=== PATIENT | male | born 1985 | race Caucasian/White ===

== ENCOUNTER 2017-09-07 19:38 | Inpatient (IN) | payer BC, SELFPAY ==
[2017-09-07 19:40] VITALS: BP 148/95; PULSE 81; RESP 18; TEMP 37.2; O2SAT 97; BMI 42.8
--- NOTE | 2017-09-07 20:23 | CT_ITS ---
CT Abdomen And Pelvis Venogram W/ Contrast INDICATION: UPPER ABD PAIN COMPARISON: None TECHNIQUE: Axial CT imaging of the abdomen and pelvis with IV contrast. Coronal and sagittal reformatted images. Radiation dose optimization technique applied. 100 mL of Isovue-300 were given intravenously. FINDINGS: Visualized lung bases are clear. The heart size is normal. There is intra-and extrahepatic biliary ductal dilatation and the common bile duct measures up to 8.5 mm at the lizzie hepatis and 5 mm at the pancreatic head. An obstructing lesion is not identified with certainty. Pancreatic duct does not appear significantly prominent. The gallbladder is not significantly distended. The spleen is normal in size. They kidneys enhance contrast symmetrically bilaterally and are without evidence of hydronephrosis. Bowel loops are nondistended. Appendix is unremarkable. Urinary bladder is decompressed. There is no evidence of free air or free fluid. CT/Abdomen/Pelvis W IV Cont ONLY IMPRESSION: Mild intra-and extrahepatic biliary ductal dilatation without CT evidence of stone or obstructing lesion. Consider further evaluation with ultrasound and/or MRCP. Normal appendix. at 2143 Reported and signed by: Kim Schilling MD Electronically Signed: Kim Schilling MD at 21:41 EDT Tel , Service support ,
[2017-09-07] MEDS: 0.9% Normal Saline 1,000 ML 1000 ML IV (20:39)
[2017-09-07] MEDS: Ondansetron 4 MG/2 ML Vial IV (20:39)
[2017-09-07] MEDS: Morphine 4 MG/ML Syringe IV (20:40)
[2017-09-07 20:47] LABS: Absolute Lymphocyte Count 1.79 X10^3/ul (0.83-4.51); Absolute Neutrophil Count 7.2 X10^3/uL (2.0-7.7); Basophil# 0.02 X10^3/uL; Basophil% 0.2 % (0-1); Eosinophil# 0.22 X10^3/uL; Eosinophils% 2.1 % (0-5); Hematocrit 46.4 % (40-54); Hemoglobin 16.1 g/dl (13.0-16.5); Lymphocyte # 1.79 X10^3/ul (4.0); Lymphocyte % 17.2 % (19-41); Mean Corp Hgb Conc 34.7 g/gl (32-36); Mean Corpuscular Volume 83.5 fL (80-94); Mean Platelet Vol. 10.2 fl (6.2-12.0); Monocyte# 1.16 X10^3/uL; Monocyte% 11.2 % (0-10); Neutrophil # 7.17 X10^3/uL (2.7-7.7); POSITIVE COUNT NO; POSITIVE DIFFERENTIAL NO; POSITIVE MORPHOLOGY NO; Platelet Count 259 K/mm3 (150-450); RBC Distribution Width CV 13.1 % (11.6-14.6); RBC Distribution Width SD 39.3 fl (35.1-43.9); Red Blood Count 5.56 M/mm3 (4.6-6.2); White Blood Count 10.4 K/mm3 (4.4-11.0)
[2017-09-07 20:51] LABS: Red Blood Cells-Urine 0 SEEN /hpf (0-5); Squamous Epithelial Cells - UA 0 SEEN /hpf (0-5)
--- NOTE | 2017-09-07 20:51 | ED.DCSUM_ITS ---
- ER Visit Summary Date of Service: 09/07/17 Chief Complaint: Midepigastric abdominal pain History of Present Illness: The patient is a 32 M presents to the emergency department with midepigastric abdominal pain. Patient's been having the symptoms for the past 4 days. He states that it started Thursday. He states he had a severe, sharp stabbing pain in his midepigastric area. Went to his back. He was nauseated without vomiting. He has had some loose watery diarrhea for a few episodes. There has been no blood. He has had no vomiting blood. He did have fevers yesterday. He denies any chills or sweats. He has had no history of abdominal surgery in the past. He does not drink alcohol. Physical Examination: Vital signs reviewed General: Well-nourished, well-developed Head: Normocephalic, atraumatic Eyes: Pupils equal and reactive, extraocular muscles intact Neck, supple, no lymphadenopathy Heart: Regular rate and rhythm Respiratory: No distress, clear bilaterally Abdomen: Soft, mildly tender in the midepigastric area, nondistended, no peritoneal signs Back: Nontender Extremities: Nontender, no edema, no cords Skin: Normal color no rash Neuro: Alert and oriented, no focal or lateralizing deficits Test Results: [] Emergency Department Course and Treatment: The patient has midepigastric tenderness. He does have some scleral icterus. IV was established. He was given morphine and Zofran with resolution of his pain. He has no significant leukocytosis. His labs do show obstructive pattern of his LFTs. Patient underwent CT of the abdomen and pelvis which does show dilation of his intrahepatic and extrahepatic collection system. I did discuss the patient with Dr. Raymond as I do feel he may need ERCP. Plan will be for admission with pain control and repeat labs. He was seen and evaluated by surgery in the emergency department will be admitted. Treatment Plan: [] Disposition: [place] Impression: 1. Midepigastric abdominal pain 2. Choledocholithiasis This note was generated with [employer] dictation software. It may contain incorrect words, spelling, and punctuation that were not noted in review of the chart prior to signing ED Disposition - Plan for ED Patient: Chief Complaint: Abd Pain Referrals: NOT,DEFINED [NON-STAFF] -
[2017-09-07 20:54] LABS: Color, Urine Amber (Yellow); Glucose, Dipstick Normal (Normal); Ketone-Dipstick 50 mg/dl (Negative); Leukocyte Esterase-Dipstick 25 /ul (Negative); Nitrite-Dipstick Positive (Negative); Occult Blood-Urine 10 /ul (Negative); Protein-Dipstick 15 mg/dl (Negative); Urine Clarity Clear (Clear); Urine Urobilinogen 4 mg/dl (Normal)
[2017-09-07 21:00] LABS: AST(SGOT) 103 U/L (15-37); Alanine Aminotransfer ALT/SGPT 265 U/L (16-61); Albumin, Serum 3.8 g/dL (3.2-5.0); Alkaline Phosphatase 237 U/L (45-117); Anion Gap 9 (5-15); BUN 7 mg/dL (7-18); BUN/Creat Ratio 6.7 RATIO (10-20); Bilirubin, Direct 4.91 mg/dL (0.00-0.30); Calcium,Total 8.9 mg/dL (8.5-10.1); Chloride 104 mmol/L (98-107); Creatinine, Serum 1.04 mg/dL (0.70-1.30); EST Glomerular Filtration Rate 89 mL/min (>60); Est Glom Filt Rate - Afr Amer 107 mL/min (>60); Estimated Creatinine Clearance 80.21 ml/min; Glucose 76 mg/dL (74-106); Lipase 105 U/L (73-393); Potassium 3.5 mmol/L (3.5-5.1); Protein, Total 7.8 g/dL (6.4-8.2); Sodium Level 139 mmol/L (136-145)
[2017-09-07 21:11] LABS: Bacteria RARE /hpf (None Seen); Mucous, Urine RARE /hpf (<or=2+); Urine Bilirubin Dipstick 6 mg/dL (Negative); White Blood Cells 0-5 SEEN /hpf (0-5)
--- NOTE | 2017-09-07 22:05 | US_ITS ---
US Abdomen RUQ (limited) INDICATION: RUQ PAIN COMPARISON: CT from the same day TECHNIQUE: Ultrasonographic grayscale and limited Doppler investigation of the right upper quadrant FINDINGS: The liver measures 16 cm and demonstrates increased echogenicity. There is mild intrahepatic biliary ductal dilatation. The gallbladder measures 7.4 cm. Few small stones are seen in the dependent portion of the neck, measuring up to 1 cm. The ultrasonographic Randolph sign is negative. The gallbladder wall measures 4 mm. The common bile duct measures 8 mm. The pancreas is not seen due to overlying bowel gas. The right kidney measures 10 cm in length and is without evidence of hydronephrosis. US/Gallbladder IMPRESSION: Multiple small gallstones up to 1 cm, in the dependent portion and the neck of the gallbladder . (Radiolucent gallstones not seen on CT) Mild intra-and extrahepatic biliary ductal dilatation. Choledochal lithiasis cannot be excluded, consider further evaluation with MRCP or ERCP. No ultrasonographic evidence of acute cholecystitis. at 2335 Reported and signed by: Kim Schilling MD Electronically Signed: Kim Schilling MD at 23:33 EDT Tel , Service support ,
--- NOTE | 2017-09-07 22:21 | PCM.HP.STD ---
Problem List (1) Choledocholithiasis with obstruction Status: Acute Qualifiers: Cholecystitis presence: without cholecystitis Qualified Code(s): K80.51 - Calculus of bile duct without cholangitis or cholecystitis with obstruction History of Present Illness Date of Admission: 09/07/17 The patient is a 32 year old M reports that he began having epigastric pain a few days ago. He does not have any nausea or vomiting. He noticed he was getting jaundiced he came to the emergency room. He reports that about 3 years ago he had acute cholecystitis and had an ultrasound that showed gallstones. This was treated with antibiotics alone. he says the pain does not radiate anywhere he is having no fevers or chills. Past Medical History Allergies No Known Allergies Allergy (Verified 09/07/17 19:41) Home Medications: Ambulatory Orders Medication Instructions Recorded NK [NK] 09/07/17 Surgical History: herniorrhaphy - Umbilical hernia repair without mesh Smoking Status: Former smoker - *Family History Paternal History Items: - - Diverticulitis Review of Systems Constitutional: Denies: Anorexia, Chills, Fever, Night Sweats Eyes: Denies: Blurred vision HEENT: Denies: Difficulty Swallowing Cardiovascular: Denies: Chest Pain Respiratory: Denies: Cough, Shortness of Breath Gastrointestinal: Reports: Abdominal Pain - Epigastric, Diarrhea, Nausea. Denies: Vomiting Genitourinary: Denies: Dysuria Musculoskeletal: Denies: Joint Tenderness Skin: Reports: Jaundice. Denies: Dryness Neurological: Denies: Balance problems Psychiatric: Denies: Anxiety Hematologic/ Lymphatic: Denies: Adenopathy, Anemia VTE Information - Inpt Only VTE Present on Admission: No Patient Problems: Active and Suspected Problems Choledocholithiasis with obstruction (Acute) - Physical Exam General: Alert, Oriented x3, Cooperative, No apparent distress HEENT: Atraumatic, PERRLA, EOMI Oral: Moist Mucosa Neck: No JVD Lungs: Normal air movement Cardiovascular: Regular rate, Regular Rhythm Abdomen: Soft, Non-Distended, Tender - Epigastric tenderness with no guarding or rebound, - - Negative Randolph sign Extremities: No clubbing Skin: No rashes Musculoskeletal: No Tenderness to Palpation of Joints or Extremities, No Muscle Wasting Neurological: Cranial nerves II-XII grossly intact, Deep Tendon Reflexes 2+/4 and Symmetrical Psych/Mental Status: Normal Affect, Appropriate Vital Signs Temp Pulse Resp BP Pulse Ox 99.0 F 81 18 148/95 H 97 09/07/17 19:40 09/07/17 19:40 09/07/17 19:40 09/07/17 19:40 09/07/17 19:40 Oxygen Delivery Method Room Air Weight: 234 lb 2.095 oz Body Mass Index (BMI) 42.8 Laboratory Tests Past 24 Hrs 09/07/17 09/07/17 09/07/17 20:30 20:30 20:40 WBC 10.4 RBC 5.56 Hgb 16.1 Hct 46.4 MCV 83.5 MCH 29.0 MCHC 34.7 RDW 13.1 RDW Differential 39.3 Plt Count 259 MPV 10.2 Immature Gran % (Auto) 0.300 Neut % (Auto) 69.0 Lymph % (Auto) 17.2 L [place] % (Auto) 11.2 H Eos % (Auto) 2.1 Baso % (Auto) 0.2 Absolute Neuts (auto) 7.2 Absolute Lymphs (auto) 1.79 Total Counted Not Reportable Sodium 139 Potassium 3.5 Chloride 104 Carbon Dioxide 26.0 Anion Gap 9 BUN 7 Creatinine 1.04 Estim Creat Clear Calc 80.21 Est GFR (MDRD) Af Amer 107 Est GFR (MDRD) Non-Af 89 BUN/Creatinine Ratio 6.7 L Glucose 76 Calcium 8.9 Total Bilirubin 6.70 H Direct Bilirubin 4.91 H AST 103 H ALT 265 H Alkaline Phosphatase 237 H Total Protein 7.8 Albumin 3.8 Globulin 4.0 Lipase 105 Urine Color [place] Urine Clarity Clear Urine pH 5.0 Ur Specific [place] 1.020 Urine Protein 15 H Urine Glucose (UA) Normal Urine Ketones 50 H Urine Occult Blood 10 H Urine Nitrite Positive H Urine Bilirubin 6 H Urine Urobilinogen 4 H Ur Leukocyte Esterase 25 H Urine RBC 0 SEEN Urine WBC 0-5 SEEN Ur Squamous Epith Cells 0 SEEN Urine Bacteria RARE Urine Mucus RARE Clinical Impression(s) from Imaging Studies Abdomen/Pelvis CT 09/07/17 20:23 IMPRESSION: Mild intra-and extrahepatic biliary ductal dilatation without CT evidence of stone or obstructing lesion. Consider further evaluation with ultrasound and/or MRCP. Normal appendix. at 2143 Reported and signed by: Kim Schilling MD Electronically Signed: Kim Schilling MD at 21:41 EDT Tel , Service support , Assessment/Plan Active and Suspected Problems Choledocholithiasis with obstruction (Acute) 32-year-old male with obstructive jaundice and possible choledocholithiasis 1. The patient has a history of gallstones as well as acute cholecystitis. His CT shows dilated bile duct and his LFTs are elevated in an obstructive pattern. I am getting an ultrasound to rule out acute cholecystitis as his white count is borderline. 2. I will admit the patient and keep him n.p.o. on IV fluids and IV antibiotics. 3. I will recheck LFTs in the morning. If his LFTs have not gone down I will schedule him for ERCP tomorrow. If his LFTs have decreased I will taken for laparoscopic cholecystectomy with cholangiograms and check for intraductal stone. 4. I describe ERCP and laparoscopic cholecystectomy to the patient in detail. I described the risks of ERCP including but not limited to bleeding, infection, perforation of the bile duct or bowels, pancreatitis. I also explained the possibility of being unable to cannulate or placing a stent. I also explained the risks of laparoscopic cholecystectomy including but not limited to bleeding, infection, injury to surrounding organs such as the liver, bile duct, bowels. I also explained the possibility of having to convert to an open procedure. The patient understands all the risks and is willing to proceed with both procedures as needed. Sampson Raymond MD Pager: [facility] [address] [place] [address], [address] [place] [address] Office:
[2017-09-07 22:26] VITALS: BP 141/77; PULSE 72; RESP 16; TEMP 37.2; O2SAT 98
--- NOTE | 2017-09-07 22:27 | HP.PCM_ITS ---
Problem List (1) Choledocholithiasis with obstruction Status: Acute Qualifiers: Cholecystitis presence: without cholecystitis Qualified Code(s): K80.51 - Calculus of bile duct without cholangitis or cholecystitis with obstruction History of Present Illness Date of Admission: 09/07/17 The patient is a 32 year old M reports that he began having epigastric pain a few days ago. He does not have any nausea or vomiting. He noticed he was getting jaundiced he came to the emergency room. He reports that about 3 years ago he had acute cholecystitis and had an ultrasound that showed gallstones. This was treated with antibiotics alone. he says the pain does not radiate anywhere he is having no fevers or chills. Past Medical History Allergies No Known Allergies Allergy (Verified 09/07/17 19:41) Home Medications: Ambulatory Orders Medication Instructions Recorded NK [NK] 09/07/17 Surgical History: herniorrhaphy - Umbilical hernia repair without mesh Smoking Status: Former smoker - *Family History Paternal History Items: - - Diverticulitis Review of Systems Constitutional: Denies: Anorexia, Chills, Fever, Night Sweats Eyes: Denies: Blurred vision HEENT: Denies: Difficulty Swallowing Cardiovascular: Denies: Chest Pain Respiratory: Denies: Cough, Shortness of Breath Gastrointestinal: Reports: Abdominal Pain - Epigastric, Diarrhea, Nausea. Denies: Vomiting Genitourinary: Denies: Dysuria Musculoskeletal: Denies: Joint Tenderness Skin: Reports: Jaundice. Denies: Dryness Neurological: Denies: Balance problems Psychiatric: Denies: Anxiety Hematologic/ Lymphatic: Denies: Adenopathy, Anemia VTE Information - Inpt Only VTE Present on Admission: No Patient Problems: Active and Suspected Problems Choledocholithiasis with obstruction (Acute) - Physical Exam General: Alert, Oriented x3, Cooperative, No apparent distress HEENT: Atraumatic, PERRLA, EOMI Oral: Moist Mucosa Neck: No JVD Lungs: Normal air movement Cardiovascular: Regular rate, Regular Rhythm Abdomen: Soft, Non-Distended, Tender - Epigastric tenderness with no guarding or rebound, - - Negative Randolph sign Extremities: No clubbing Skin: No rashes Musculoskeletal: No Tenderness to Palpation of Joints or Extremities, No Muscle Wasting Neurological: Cranial nerves II-XII grossly intact, Deep Tendon Reflexes 2+/4 and Symmetrical Psych/Mental Status: Normal Affect, Appropriate Vital Signs Temp Pulse Resp BP Pulse Ox 99.0 F 81 18 148/95 H 97 09/07/17 19:40 09/07/17 19:40 09/07/17 19:40 09/07/17 19:40 09/07/17 19:40 Oxygen Delivery Method Room Air Weight: 234 lb 2.095 oz Body Mass Index (BMI) 42.8 Laboratory Tests Past 24 Hrs 09/07/17 09/07/17 09/07/17 20:30 20:30 20:40 WBC 10.4 RBC 5.56 Hgb 16.1 Hct 46.4 MCV 83.5 MCH 29.0 MCHC 34.7 RDW 13.1 RDW Differential 39.3 Plt Count 259 MPV 10.2 Immature Gran % (Auto) 0.300 Neut % (Auto) 69.0 Lymph % (Auto) 17.2 L [place] % (Auto) 11.2 H Eos % (Auto) 2.1 Baso % (Auto) 0.2 Absolute Neuts (auto) 7.2 Absolute Lymphs (auto) 1.79 Total Counted Not Reportable Sodium 139 Potassium 3.5 Chloride 104 Carbon Dioxide 26.0 Anion Gap 9 BUN 7 Creatinine 1.04 Estim Creat Clear Calc 80.21 Est GFR (MDRD) Af Amer 107 Est GFR (MDRD) Non-Af 89 BUN/Creatinine Ratio 6.7 L Glucose 76 Calcium 8.9 Total Bilirubin 6.70 H Direct Bilirubin 4.91 H AST 103 H ALT 265 H Alkaline Phosphatase 237 H Total Protein 7.8 Albumin 3.8 Globulin 4.0 Lipase 105 Urine Color [place] Urine Clarity Clear Urine pH 5.0 Ur Specific [place] 1.020 Urine Protein 15 H Urine Glucose (UA) Normal Urine Ketones 50 H Urine Occult Blood 10 H Urine Nitrite Positive H Urine Bilirubin 6 H Urine Urobilinogen 4 H Ur Leukocyte Esterase 25 H Urine RBC 0 SEEN Urine WBC 0-5 SEEN Ur Squamous Epith Cells 0 SEEN Urine Bacteria RARE Urine Mucus RARE Clinical Impression(s) from Imaging Studies Abdomen/Pelvis CT 09/07/17 20:23 IMPRESSION: Mild intra-and extrahepatic biliary ductal dilatation without CT evidence of stone or obstructing lesion. Consider further evaluation with ultrasound and/or MRCP. Normal appendix. at 2143 Reported and signed by: Kim Schilling MD Electronically Signed: Kim Schilling MD at 21:41 EDT Tel , Service support , Assessment/Plan Active and Suspected Problems Choledocholithiasis with obstruction (Acute) 32-year-old male with obstructive jaundice and possible choledocholithiasis 1. The patient has a history of gallstones as well as acute cholecystitis. His CT shows dilated bile duct and his LFTs are elevated in an obstructive pattern. I am getting an ultrasound to rule out acute cholecystitis as his white count is borderline. 2. I will admit the patient and keep him n.p.o. on IV fluids and IV antibiotics. 3. I will recheck LFTs in the morning. If his LFTs have not gone down I will schedule him for ERCP tomorrow. If his LFTs have decreased I will taken for laparoscopic cholecystectomy with cholangiograms and check for intraductal stone. 4. I describe ERCP and laparoscopic cholecystectomy to the patient in detail. I described the risks of ERCP including but not limited to bleeding, infection, perforation of the bile duct or bowels, pancreatitis. I also explained the possibility of being unable to cannulate or placing a stent. I also explained the risks of laparoscopic cholecystectomy including but not limited to bleeding , infection, injury to surrounding organs such as the liver, bile duct, bowels. I also explained the possibility of having to convert to an open procedure. The patient understands all the risks and is willing to proceed with both procedures as needed. Sampson Raymond MD Pager: [facility] [address] [place] [address], [address] [place] [address] Office:
[2017-09-07 23:00] VITALS: BP 141/77; PULSE 72; RESP 16; O2SAT 98
[2017-09-07 23:16] VITALS: BMI 44.2
[2017-09-07 23:24] VITALS: BMI 44.2
[2017-09-07 23:34] VITALS: BP 129/76; PULSE 77; RESP 16; TEMP 37.1; O2SAT 99
[2017-09-08] VITALS (7 sets, daily range): BP systolic 109–129; BP diastolic 63–87; PULSE 63–105; RESP 14–16; TEMP 36.5–37.2; O2SAT 92–98; BMI 44.2
[2017-09-08] MEDS: 0.9% NaCl Peripheral Flush Adult/Peds IV (00:21)
[2017-09-08] MEDS: 0.9% Normal Saline 1,000 ML 125 ML IV ×2 (00:21→11:34)
[2017-09-08] MEDS: Morphine 4 MG/ML Syringe IV (04:42)
[2017-09-08 05:52] LABS: Absolute Neutrophil Count 5.5 X10^3/uL (2.0-7.7); Basophil# 0.01 X10^3/uL; Basophil% 0.1 % (0-1); Eosinophil# 0.23 X10^3/uL; Eosinophils% 2.8 % (0-5); Hematocrit 43.7 % (40-54); Hemoglobin 14.6 g/dl (13.0-16.5); Lymphocyte % 20.5 % (19-41); Mean Corp Hgb Conc 33.4 g/gl (32-36); Mean Corpuscular Hgb 28.3 pg (27.0-32.0); Mean Corpuscular Volume 84.7 fL (80-94); Mean Platelet Vol. 10.1 fl (6.2-12.0); Monocyte# 0.84 X10^3/uL; Monocyte% 10.1 % (0-10); Neutrophil % 66.3 % (47-70); Platelet Count 252 K/mm3 (150-450); RBC Distribution Width CV 13.3 % (11.6-14.6); RBC Distribution Width SD 40.7 fl (35.1-43.9); Red Blood Count 5.16 M/mm3 (4.6-6.2); White Blood Count 8.3 K/mm3 (4.4-11.0)
[2017-09-08 05:54] LABS: POSITIVE COUNT NO; POSITIVE DIFFERENTIAL NO; POSITIVE MORPHOLOGY NO
[2017-09-08 06:08] LABS: ALB/GLOB Ratio 0.9 RATIO (0.9-2.4); AST(SGOT) 89 U/L (15-37); Alanine Aminotransfer ALT/SGPT 230 U/L (16-61); Albumin, Serum 3.3 g/dL (3.2-5.0); Alkaline Phosphatase 219 U/L (45-117); Anion Gap 10 (5-15); BUN 8 mg/dL (7-18); BUN/Creat Ratio 8.7 RATIO (10-20); Calcium,Total 8.5 mg/dL (8.5-10.1); Chloride 108 mmol/L (98-107); Creatinine, Serum 0.92 mg/dL (0.70-1.30); EST Glomerular Filtration Rate 103 mL/min (>60); Est Glom Filt Rate - Afr Amer 124 mL/min (>60); Estimated Creatinine Clearance 90.67 ml/min; Globulin 3.8 g/dL (2.2-4.2); Glucose 88 mg/dL (74-106); Potassium 3.7 mmol/L (3.5-5.1); Protein, Total 7.1 g/dL (6.4-8.2); Sodium Level 138 mmol/L (136-145)
--- NOTE | 2017-09-08 07:03 | PN.SURG_ITS ---
Patient Problems: Active and Suspected Problems Choledocholithiasis with obstruction (Acute) Subjective: No issues overnight. No nausea or vomiting. Pain remains the same. - Physical Exam General: Alert, Oriented x3, Cooperative HEENT: Atraumatic Neck: No JVD Lungs: Normal air movement Cardiovascular: Regular rate, Regular Rhythm Abdomen: Soft, Non-Distended, Tender - Epigastric tenderness no guarding or rebound Vital Signs Temp Pulse Resp BP Pulse Ox 98.3 F 68 16 128/84 H 98 09/08/17 04:37 09/08/17 04:37 09/08/17 04:37 09/08/17 04:37 09/08/17 04:37 Oxygen Delivery Method Room Air Weight: 241 lb 13.553 oz Body Mass Index (BMI) 44.2 Intake and Output for Last 24 Hours 09/06/17 09/07/17 09/08/17 23:59 23:59 23:59 Intake Total 684 / 684 Output Total 475 / 475 Balance 209 / 209 Laboratory Tests Past 24 Hrs 09/08/17 09/08/17 05:14 05:14 WBC 8.3 RBC 5.16 Hgb 14.6 Hct 43.7 MCV 84.7 MCH 28.3 MCHC 33.4 RDW 13.3 RDW Differential 40.7 Plt Count 252 MPV 10.1 Immature Gran % (Auto) 0.200 Neut % (Auto) 66.3 Lymph % (Auto) 20.5 [place] % (Auto) 10.1 H Eos % (Auto) 2.8 Baso % (Auto) 0.1 Absolute Neuts (auto) 5.5 Absolute Lymphs (auto) 1.70 Total Counted Not Reportable Sodium 138 Potassium 3.7 Chloride 108 H Carbon Dioxide 20.0 L Anion Gap 10 BUN 8 Creatinine 0.92 Estim Creat Clear Calc 90.67 Est GFR (MDRD) Af Amer 124 Est GFR (MDRD) Non-Af 103 BUN/Creatinine Ratio 8.7 L Glucose 88 Calcium 8.5 Total Bilirubin 6.60 H AST 89 H ALT 230 H Alkaline Phosphatase 219 H Total Protein 7.1 Albumin 3.3 Globulin 3.8 Albumin/Globulin Ratio 0.9 Medical Necessity - Tobacco Use Smoking Status: Former smoker Assessment/Plan Active and Suspected Problems Choledocholithiasis with obstruction (Acute) 32-year-old male with obstructive jaundice 1. Patient had an ultrasound which did show cholelithiasis as well as a gallbladder wall 4 mm. Plan for ERCP today as LFTs stayed elevated. All questions were answered sufficiently and patient consents to proceed with procedure. Sampson Raymond MD Pager: [facility] [address] [place] [address] [address] [place] [phone] Office:
--- NOTE | 2017-09-08 07:45 | RAD_ITS ---
STUDY: ERCP REASON FOR EXAM: Male, 32 years old. History of gallstones. FLUOROSCOPY TIME (if supplied): (26:36) minutes/seconds TECHNIQUE: An ERCP was performed by the surgeon. Imaging was submitted. COMPARISON: None. FINDINGS: There is opacification of the intrahepatic biliary ducts as well as the common bile duct. There is a small filling defect in the proximal portion of the common bile duct just distal to the insertion of the cystic duct. A biliary stent was then placed. RAD/ERCP Biliary Only IMPRESSION: Filling defect most likely representing a tiny calculus in the proximal portion common bile duct. A biliary stent was placed. Electronically Signed: Raphael Sellers MD at 12:49 EDT Tel [phone], Service support ,
--- NOTE | 2017-09-08 11:47 | OP.PCM_ITS ---
Problem List (1) Choledocholithiasis with obstruction Status: Acute Qualifiers: Cholecystitis presence: without cholecystitis Qualified Code(s): K80.51 - Calculus of bile duct without cholangitis or cholecystitis with obstruction Report of Operation Date of Procedure: 09/08/17 Pre-Operative Diagnosis: Obstructive jaundice Post-Operative Diagnosis: Choledocholithiasis and obstructive jaundice Surgery/Procedure Performed:: ERCP with sphincterotomy and placement of stent Description of Procedure: After describing the risks of the procedure as well as the procedure in detail informed consent was obtained. Patient was brought to the operating room and general anesthesia was induced. The patient was then placed in a semi-prone position. Next, the side-viewing endoscope was placed into the mouth and down into the stomach and advanced into the duodenum. The patient had several shallow ulcers of the duodenum. The ampulla was located. A sphinctertome was used to cannulate the common bile duct and location was confirmed on fluoroscopy. The guidewire was placed in the common bile duct and using sphincterotome and electrocautery a sphincterotomy was performed. Hemostasis was good. Next the sphincterotome was removed leaving the guidewire in the common bile duct. A balloon was then introduced over the guidewire and contrast was instilled. There was a very large stone in the mid common bile duct which was obstructing the contrast. This was at the level of the common bile duct and cystic duct juncture. I was able to get a guidewire passed the stone but nothing else would go past. I tried a balloon and a trapezoid basket but neither would get past the stone. It was very tight against the wire. I was able to get a 7 cm 7 Maltese stent into the common bile duct but this proved to be distal to the obstruction once it was deployed. This was removed with snare. Next a 9 cm 7 Maltese stent was placed and I was able to get this passed the stone and deployed. Once this was deployed there was green bile returning from the stent. The side-viewing scope was then withdrawn back into the stomach and the stomach was suctioned. Next, the scope was removed. The patient was taken to PACU in stable condition. The patient tolerated the procedure well. Grafts/Implants Used: 9 cm x 7 Maltese plastic biliary stent - Admit VTE Documentation VTE Mechan Device Prophylaxis: SCD's
[2017-09-08] MEDS: Pantoprazole Sodium 40 MG Tablet PO (17:41)
--- NOTE | 2017-09-08 22:43 | NUR.TO.PHY ---
Patient ate candy bar that family had brought in. It has been 1 hour since he ate candy bar, no nausea or pain. Diet increased to regular for breakfast. Education provided on diet teaching.
[2017-09-09] MEDS: 0.9% Normal Saline 1,000 ML 125 ML IV (02:06)
[2017-09-09 02:30] VITALS: BP 114/65; PULSE 73; RESP 16; TEMP 36.8; O2SAT 97
[2017-09-09 06:42] LABS: ALB/GLOB Ratio 0.8 RATIO (0.9-2.4); AST(SGOT) 55 U/L (15-37); Alanine Aminotransfer ALT/SGPT 176 U/L (16-61); Alkaline Phosphatase 189 U/L (45-117); Anion Gap 7 (5-15); BUN 8 mg/dL (7-18); BUN/Creat Ratio 8.8 RATIO (10-20); Calcium,Total 8.2 mg/dL (8.5-10.1); Chloride 109 mmol/L (98-107); Creatinine, Serum 0.91 mg/dL (0.70-1.30); EST Glomerular Filtration Rate 103 mL/min (>60); Est Glom Filt Rate - Afr Amer 125 mL/min (>60); Estimated Creatinine Clearance 91.67 ml/min; Globulin 3.6 g/dL (2.2-4.2); Glucose 113 mg/dL (74-106); Potassium 3.9 mmol/L (3.5-5.1); Protein, Total 6.6 g/dL (6.4-8.2); Sodium Level 141 mmol/L (136-145)
--- NOTE | 2017-09-09 08:33 | PCM.DC ---
- Discharge Diagnoses Current Active Problems: Current Active and Chronic Problems Choledocholithiasis with obstruction (Acute) You will use the following diet at home:: No restrictions Your food should be the consistency of: Regular Discharge Activity: Return to Normal Activity Call your doctor if your incision/area has: Increased Pain/ Swelling Call your doctor if you observe: Fever of 101 or Higher Additional Instructions: My office will call you to schedule follow-up ERCP in 4-6 weeks. If you have any issues please notify my office [phone], or call the hospital multiple spindle router operator to have them page me. Okay to return to work with no restrictions. Allergies/Adverse Reactions: Allergies No Known Allergies Allergy (Verified 09/07/17 19:41) Medications to take at Discharge NK [NK] 09/07/17 Primary Care Physician: NOT,DEFINED [NON-STAFF] -
--- NOTE | 2017-09-09 08:35 | PCM.DC.SUM ---
Discharge Date and Diagnosis - Problem List Patient Problems: Active and Suspected Problems Choledocholithiasis with obstruction (Acute) Date of Admission: 09/07/17 Date of Discharge: 09/09/17 - Primary Discharge Diagnosis Active and Suspected Problems Choledocholithiasis with obstruction (Acute) Hospital Course and Treatment Imaging Results: Clinical Impression(s) from Imaging Studies Abdomen/Pelvis CT 09/07/17 20:23 IMPRESSION: Mild intra-and extrahepatic biliary ductal dilatation without CT evidence of stone or obstructing lesion. Consider further evaluation with ultrasound and/or MRCP. Normal appendix. at 2143 Reported and signed by: Kim Schilling MD Electronically Signed: Kim Schilling MD at 21:41 EDT Tel , Service support , Gallbladder Ultrasound 09/07/17 22:05 IMPRESSION: Multiple small gallstones up to 1 cm, in the dependent portion and the neck of the gallbladder . (Radiolucent gallstones not seen on CT) Mild intra-and extrahepatic biliary ductal dilatation. Choledochal lithiasis cannot be excluded, consider further evaluation with MRCP or ERCP. No ultrasonographic evidence of acute cholecystitis. at 2335 Reported and signed by: Kim Schilling MD Electronically Signed: Kim Schilling MD at 23:33 EDT Tel , Service support , ERCP X-Ray 09/08/17 07:45 IMPRESSION: Filling defect most likely representing a tiny calculus in the proximal portion common bile duct. A biliary stent was placed. Electronically Signed: Raphael Sellers MD at 12:49 EDT Tel [phone], Service support , Operations: ERCP Procedures: None Summary of Care Provided: The patient is a 32 year old M presented to the emergency room with epigastric pain of [address] showed dilated bile ducts and his LFTs were very elevated. The following day he was taken for ERCP and he had a very large stone in his mid common bile duct. This was unable to be removed and so a biliary stent was placed beyond it. There is good flow of bile and his LFTs came down the following morning. The day after the procedure he was having no abdominal pain whatsoever. The plan is to repeat an ERCP in 4-6 weeks to attempt stone removal and subsequent cholecystectomy. Discharge Activity: Return to Normal Activity Call your doctor if your incision/area has: Increased Pain/ Swelling Call your doctor if you observe: Fever of 101 or Higher Home Medications: Medications to take at Discharge NK [NK] 09/07/17 Primary Care Physician: NOT,DEFINED [NON-STAFF] - Medical Necessity - Tobacco Use Smoking Status: Former smoker Meaningful Use Info Meaningful Use Diagnoses (Choose all that apply): None applicable
[2017-09-09 09:53] VITALS: BP 116/67; PULSE 67; RESP 16; TEMP 36.6; O2SAT 98
== END 2017-09-09 09:49 | disposition home or self-care (01) | DRG 446 ==
LOC: ED 21:27 → MS3 09-08 02:38
PROVIDERS: Admitting Provider Family Medicine; Emergency Provider Emergency Medicine; Family Provider Pediatrics; PCP Pediatrics; Visit Provider Surgery
PROC: 0F998ZZ Drainage of Common Bile Duct, Via Natural or Artificial Opening Endoscopic (ICD-10-PCS; CPT 43260; principal; 2017-09-08 10:00)
DX: K80.51 Calculus of bile duct without cholangitis or cholecystitis with obstruction (principal); K26.9 Duodenal ulcer, unspecified as acute or chronic, without hemorrhage or perforation; K21.9 Gastro-esophageal reflux disease without esophagitis; E78.00 Pure hypercholesterolemia, unspecified; Z87.891 Personal history of nicotine dependence
CPT/HCPCS: 36415; 74177; 74328; 76000; 76705; 80048; 80053; 80076; 81001; 83690; 85025; 99284; J7030; A4216; C1769; J2405

== ENCOUNTER 2017-10-15 18:56 | Emergency (ER) | payer BC, SELFPAY ==
[2017-10-15 18:57] VITALS: BP 143/99; PULSE 105; RESP 24; TEMP 37.7; O2SAT 100; BMI 42.6
--- NOTE | 2017-10-15 19:51 | ED.RN ---
PT REPORTED SHOCKED BY 100-300 VOLTS NOT JOULES TODAY. PT IS AND ANGELAAN.
--- NOTE | 2017-10-15 20:04 | EKG12_ITS ---
Test Reason : DYSRHYTHMIA Blood Pressure : / mmHG Vent. Rate : 082 BPM Atrial Rate : 082 BPM P-R Int : 132 ms QRS Dur : 078 ms QT Int : 354 ms P-R-T Axes : 016 -08 003 degrees QTc Int : 413 ms Normal sinus rhythm Normal ECG Confirmed by FELISA ARREDONDO ([id number]), newspaper editor managing RUPA DSOUZA ([id number]) on 10/19/2017 10:20:56 AM Referred By: FERNY Confirmed By:FELISA ARREDONDO
--- NOTE | 2017-10-15 20:11 | ED.RN ---
NO OLD EKG'S IN MUSE
[2017-10-15] MEDS: Morphine 4 MG/ML Syringe IV (20:28)
[2017-10-15] MEDS: 0.9% Normal Saline 1,000 ML 1000 ML IV (20:28)
[2017-10-15] MEDS: Ondansetron 4 MG/2 ML Vial IV (20:29)
[2017-10-15 20:41] LABS: Absolute Lymphocyte Count 1.35 X10^3/ul (0.83-4.51); Absolute Neutrophil Count 14.6 X10^3/uL (2.0-7.7); Basophil# 0.02 X10^3/uL; Basophil% 0.1 % (0-1); Eosinophil# 0.05 X10^3/uL; Eosinophils% 0.3 % (0-5); Hematocrit 46.1 % (40-54); Hemoglobin 15.8 g/dl (13.0-16.5); Lymphocyte # 1.35 X10^3/ul (4.0); Lymphocyte % 7.9 % (19-41); Mean Corp Hgb Conc 34.3 g/gl (32-36); Mean Corpuscular Hgb 28.8 pg (27.0-32.0); Mean Corpuscular Volume 84.1 fL (80-94); Mean Platelet Vol. 9.9 fl (6.2-12.0); Monocyte# 1.14 X10^3/uL; Monocyte% 6.6 % (0-10); Neutrophil # 14.59 X10^3/uL (2.7-7.7); Platelet Count 261 K/mm3 (150-450); RBC Distribution Width SD 39.3 fl (35.1-43.9); Red Blood Count 5.48 M/mm3 (4.6-6.2); White Blood Count 17.2 K/mm3 (4.4-11.0)
--- NOTE | 2017-10-15 20:45 | ED.VISSUMM ---
- ER Visit Summary Date of Service: 10/15/17 Chief Complaint: Abdominal pain History of Present Illness: The patient is a 32 M increasing abdominal pain since this morning. Pain in the epigastric to the right upper quadrant. Patient status post ERCP with ductal stent by Dr. Kaiser Saldivar last month. He states is a bad gallbladder. He states he has a pending repeat ERCP on the 26 then plans for colon cystectomy. Denies vomiting or diarrhea. Pain is severe. States he did have a electrical shock that was brief this morning. No chest pains or palpitations. He uses Nexium for reflux and plans of his cholecystectomy. Physical Examination: General: Alert and oriented ?3, mild distress HEENT: Normocephalic, atraumatic. Moist mucosa membranes Neck: supple, nontender. Cardiovascular: Regular rate and rhythm, no murmurs Respiratory: Normal breath sounds, symmetric, no distress Abdomen: Soft, right upper quadrant tenderness along with mild epigastric tenderness, mild guarding in the right upper quadrant, nondistended Extremities: Nontender, no edema, pulses intact ?4 Neuro: no focal neurological deficits. Test Results: EKG sinus rate of [address] or T-wave changes. QTc 413. WBC 17.2. Creatinine 1.07. Lipase 84. A LT 84, ALP 132. Gallbladder ultrasound: 4 mm gallbladder wall, positive gallstones, negative pericholecystic fluid, negative sonographic Randolph sign. Emergency Department Course and Treatment: Patient with a known biliary stent and gallstones. He is followed by Dr. Raymond. Sudden increasing pain. Tender right upper quadrant. Treated morphine Zofran and IV fluids. Labs note a white count 17. Normal lipase. Liver enzymes have been trending down from previous labs in the hospital last month. Due to his white count I did reobtain a gallbladder ultrasound negative for cholecystic fluid in sonographic Randolph sign. He is mild thickening gallbladder wall is not gallstones. Common bile duct 5 mm. On reevaluation, symptoms much more improved. Discussed with patient biliary colic symptoms currently. He will be dispense for Se[place]ago to use this evening to use every 6 hours as needed. Written for Zofran. He will call a surgeon for follow-up. He has a pending repeat ERCP along with future cholecystectomy. Discussed signs and symptoms to return to the ED. All questions were answered. Treatment Plan: [] Disposition: Discharge Impression: Acute biliary colic This note was generated with [employer] dictation software. It may contain incorrect words, spelling, and punctuation that were not noted in review of the chart prior to signing ED Disposition - Plan for ED Patient: Disposition: Home or Assisted Living Chief Complaint: Abd Pain Diagnosis: Biliary colic Instructions: Treating Gallstones Prescriptions: Ondansetron [Zofran Odt] 4 mg PO Q8H PRN PRN #10 tablet PRN Reason: Nausea Referrals: Kristin Diaz [Primary Care Provider] - Sampson Raymond MD [STAFF PHYSICIAN] - 3-5 Days
[2017-10-15 20:48] LABS: POSITIVE COUNT NO; POSITIVE DIFFERENTIAL NO; POSITIVE MORPHOLOGY NO
[2017-10-15 21:00] LABS: AST(SGOT) 33 U/L (15-37); Alanine Aminotransfer ALT/SGPT 84 U/L (16-61); Albumin, Serum 4.2 g/dL (3.2-5.0); Alkaline Phosphatase 132 U/L (45-117); Anion Gap 6 (5-15); BUN 8 mg/dL (7-18); BUN/Creat Ratio 7.5 RATIO (10-20); Calcium,Total 8.8 mg/dL (8.5-10.1); Chloride 106 mmol/L (98-107); Creatinine, Serum 1.07 mg/dL (0.70-1.30); EST Glomerular Filtration Rate 86 mL/min (>60); Est Glom Filt Rate - Afr Amer 104 mL/min (>60); Estimated Creatinine Clearance 77.96 ml/min; Globulin 3.9 g/dL (2.2-4.2); Glucose 105 mg/dL (74-106); Lipase 84 U/L (73-393); Potassium 3.6 mmol/L (3.5-5.1); Protein, Total 8.1 g/dL (6.4-8.2); Sodium Level 139 mmol/L (136-145)
--- NOTE | 2017-10-15 21:08 | US_ITS ---
STUDY: ABDOMINAL ULTRASOUND - RIGHT UPPER QUADRANT REASON FOR VISIT: Male, 32 years old. Right upper quadrant pain . Patient has known gallstones. TECHNIQUE: Ultrasound evaluation of the right upper quadrant was performed with real-time and static geronimo-scale imaging. TECHNICAL QUALITY: Adequate. COMPARISON: 09/07/2017, which showed cholelithiasis.. FINDINGS: Liver: The liver measures 16.0 cm. There is normal echogenicity of the liver. The bile ducts are within normal limits. There is hepatic color flow. The direction of portal flow is hepatopetal. There is no demonstrated mass lesion. Gallbladder: Normal distended gallbladder. The gallbladder wall measures 4 mm. There is a negative sonographic Randolph's sign. There is no pericholecystic fluid. There are multiple echogenic structures within the gallbladder, consistent with multiple gallstones. Common Bile Duct (C.B.D.): The common bile duct measures 5 mm. Pancreas: Normal size of the head, body and tail of the pancreas. There is normal echogenicity of the pancreas. There is no demonstrated pancreatic mass or cyst. Right Kidney: Normal size of the right kidney. The right kidney measures 10.6 cm. Normal renal cortex. The right cortex measures 1.7 cm. There is no demonstrated renal mass or cyst. There is no right hydronephrosis. US/Gallbladder IMPRESSION: Again seen is cholelithiasis. There is a thickened gallbladder wall. No tenderness. Electronically Signed: Seth Rodrigues MD at 22:01 EDT , Service support ,
[2017-10-15 23:02] VITALS: BP 137/82; PULSE 74; RESP 16; O2SAT 97
[2017-10-15] MEDS: HYDROcodone Bitartrate/Apap 5/325 Tablet PO (23:05)
[2017-10-15 23:06] VITALS: BP 137/82; PULSE 74; RESP 16; O2SAT 97
== END 2017-10-15 23:07 | disposition home or self-care (01) ==
PROVIDERS: Emergency Provider Emergency Medicine; Family Provider Pediatrics; PCP Pediatrics
DX: K80.50 Calculus of bile duct without cholangitis or cholecystitis without obstruction (principal); K21.9 Gastro-esophageal reflux disease without esophagitis; Z87.891 Personal history of nicotine dependence; Z79.899 Other long term (current) drug therapy
CPT/HCPCS: 76705; 80048; 80076; 83690; 85025; 93005; 96361; 96374; 96375; 99283; J7030; J2405

== ENCOUNTER 2017-10-20 11:08 | Inpatient (IN) | payer BC, SELFPAY ==
[2017-10-20] VITALS (11 sets, daily range): BP systolic 106–131; BP diastolic 55–90; PULSE 59–89; RESP 16–20; TEMP 36.3–37.4; O2SAT 92–100; BMI 49.6; BMI 41.3
--- NOTE | 2017-10-20 09:30 | RAD_ITS ---
STUDY: ERCP. REASON FOR EXAM: Male, 32 years old. Retained common bile duct stone. FLUOROSCOPY TIME (if supplied): (28 minutes) minutes/seconds TECHNIQUE: An ERCP was performed by the soaker meat. Imaging was performed. COMPARISON: None. FINDINGS: Successful removal of the common bile duct stone. RAD/ERCP Biliary Only IMPRESSION: Successful removal of the common bile duct calculus. Electronically Signed: Raphael Sellers MD at 11:31 EDT Tel [phone], Service support ,
--- NOTE | 2017-10-20 09:38 | PCM.HP.STD ---
Problem List (1) Choledocholithiasis with obstruction Status: Acute Qualifiers: Cholecystitis presence: with cholecystitis Cholecystitis acuity: acute Qualified Code(s): K80.43 - Calculus of bile duct with acute cholecystitis with obstruction History of Present Illness Date of Admission: 10/20/17 The patient is a 32 year old M who was in the emergency room 6 weeks ago with obstructive jaundice. He was taken for ERCP and the stone was unable to be removed due to its size and a stent was placed. He returns today for elective ERCP with second attempt removal of stone. Subsequently he presented to the emergency room last week with right upper quadrant pain and attack. He says that he has been having chills and nausea since then. He had a white count of 17 and a thickened gallbladder wall at 4 mm with multiple stones in his gallbladder. Past Medical History Allergies No Known Allergies Allergy (Verified 10/15/17 18:58) Home Medications: Ambulatory Orders Medication Instructions Recorded Esomeprazole Mag Trihydrate 40 mg PO DAILY 10/14/17 [Nexium] Surgical History: herniorrhaphy - Umbilical hernia repair without mesh, - - ercp Smoking Status: Former smoker Tobacco Use: Chew Alcohol: None Drugs: None - *Family History Paternal History Items: - - Diverticulitis Review of Systems Constitutional: Reports: Chills. Denies: Anorexia, Fever HEENT: Denies: Difficulty Swallowing Cardiovascular: Denies: Chest Pain Respiratory: Denies: Cough, Shortness of Breath Gastrointestinal: Reports: Abdominal Pain, Nausea. Denies: Diarrhea, Vomiting Genitourinary: Denies: Dysuria Musculoskeletal: Denies: Joint Tenderness Skin: Denies: Dryness Psychiatric: Denies: Anxiety Hematologic/ Lymphatic: Denies: Anemia VTE Information - Inpt Only VTE Present on Admission: No VTE Mechan Device Prophylaxis: SCD's - Physical Exam General: Alert, Oriented x3, Cooperative, No apparent distress HEENT: Atraumatic Neck: No JVD Lungs: Normal air movement Cardiovascular: Regular rate, Regular Rhythm Abdomen: Soft, Non-Distended, Tender - Tender in the right upper quadrant Neurological: Cranial nerves II-XII grossly intact Psych/Mental Status: Normal Affect, Appropriate Vital Signs Temp Pulse Resp BP Pulse Ox 98.1 F 68 16 125/80 H 99 10/20/17 08:43 10/20/17 08:43 10/20/17 08:43 10/20/17 08:43 10/20/17 08:43 Oxygen Delivery Method Room Air Weight: 271 lb 6.224 oz Body Mass Index (BMI) 49.6 Assessment/Plan All Active Problems Choledocholithiasis with obstruction (Acute) 32-year-old male with choledocholithiasis and obstruction 1. The patient will be undergoing an ERCP today for attempted stone removal. I explained ERCP in detail with the patient including the risks benefits and alternatives. I explained the risks including not limited to bleeding, infection, pancreatitis, perforation of bowels or bile duct. The patient wishes to proceed. If I am unable to remove the stone I will replace a new stent. 2. The patient was recently in the emergency room 5 days ago with an elevated white count and a thickened gallbladder wall. The patient likely had acute cholecystitis but was sent home. I will likely admit the patient after ERCP and continue IV antibiotics. If I am able to completely clear the duct of gallstones I will perform a laparoscopic cholecystectomy tomorrow. Sampson Raymond MD Pager: [facility] [address] [place] [address] [address] [place] [address] Office:
--- NOTE | 2017-10-20 09:42 | HP.PCM_ITS ---
Problem List (1) Choledocholithiasis with obstruction Status: Acute Qualifiers: Cholecystitis presence: with cholecystitis Cholecystitis acuity: acute Qualified Code(s): K80.43 - Calculus of bile duct with acute cholecystitis with obstruction History of Present Illness Date of Admission: 10/20/17 The patient is a 32 year old M who was in the emergency room 6 weeks ago with obstructive jaundice. He was taken for ERCP and the stone was unable to be removed due to its size and a stent was placed. He returns today for elective ERCP with second attempt removal of stone. Subsequently he presented to the emergency room last week with right upper quadrant pain and attack. He says that he has been having chills and nausea since then. He had a white count of 17 and a thickened gallbladder wall at 4 mm with multiple stones in his gallbladder. Past Medical History Allergies No Known Allergies Allergy (Verified 10/15/17 18:58) Home Medications: Ambulatory Orders Medication Instructions Recorded Esomeprazole Mag Trihydrate 40 mg PO DAILY 10/14/17 [Nexium] Surgical History: herniorrhaphy - Umbilical hernia repair without mesh, - - ercp Smoking Status: Former smoker Tobacco Use: Chew Alcohol: None Drugs: None - *Family History Paternal History Items: - - Diverticulitis Review of Systems Constitutional: Reports: Chills. Denies: Anorexia, Fever HEENT: Denies: Difficulty Swallowing Cardiovascular: Denies: Chest Pain Respiratory: Denies: Cough, Shortness of Breath Gastrointestinal: Reports: Abdominal Pain, Nausea. Denies: Diarrhea, Vomiting Genitourinary: Denies: Dysuria Musculoskeletal: Denies: Joint Tenderness Skin: Denies: Dryness Psychiatric: Denies: Anxiety Hematologic/ Lymphatic: Denies: Anemia VTE Information - Inpt Only VTE Present on Admission: No VTE Mechan Device Prophylaxis: SCD's - Physical Exam General: Alert, Oriented x3, Cooperative, No apparent distress HEENT: Atraumatic Neck: No JVD Lungs: Normal air movement Cardiovascular: Regular rate, Regular Rhythm Abdomen: Soft, Non-Distended, Tender - Tender in the right upper quadrant Neurological: Cranial nerves II-XII grossly intact Psych/Mental Status: Normal Affect, Appropriate Vital Signs Temp Pulse Resp BP Pulse Ox 98.1 F 68 16 125/80 H 99 10/20/17 08:43 10/20/17 08:43 10/20/17 08:43 10/20/17 08:43 10/20/17 08:43 Oxygen Delivery Method Room Air Weight: 271 lb 6.224 oz Body Mass Index (BMI) 49.6 Assessment/Plan All Active Problems Choledocholithiasis with obstruction (Acute) 32-year-old male with choledocholithiasis and obstruction 1. The patient will be undergoing an ERCP today for attempted stone removal. I explained ERCP in detail with the patient including the risks benefits and alternatives. I explained the risks including not limited to bleeding, infection, pancreatitis, perforation of bowels or bile duct. The patient wishes to proceed. If I am unable to remove the stone I will replace a new stent. 2. The patient was recently in the emergency room 5 days ago with an elevated white count and a thickened gallbladder wall. The patient likely had acute cholecystitis but was sent home. I will likely admit the patient after ERCP and continue IV antibiotics. If I am able to completely clear the duct of gallstones I will perform a laparoscopic cholecystectomy tomorrow. Sampson Raymond MD Pager: [facility] [address] [place] [address] [address] [place] [address] Office:
--- NOTE | 2017-10-20 11:12 | PCM.OPRPT ---
Problem List (1) Choledocholithiasis with obstruction Status: Acute Qualifiers: Cholecystitis presence: with cholecystitis Cholecystitis acuity: acute Qualified Code(s): K80.43 - Calculus of bile duct with acute cholecystitis with obstruction Report of Operation Date of Procedure: 10/20/17 Pre-Operative Diagnosis: Choledocholithiasis Post-Operative Diagnosis: Same Surgery/Procedure Performed:: ERCP with stent removal and stone removal Description of Procedure: After describing the risks of the procedure as well as the procedure in detail informed consent was obtained. Patient was brought to the operating room and general anesthesia was induced. The patient was then placed in a semi-prone position. Next, the side-viewing endoscope was placed into the mouth and down into the stomach and advanced into the duodenum. The ampulla was located. A sphinctertome was used to cannulate the common bile duct and location was confirmed on fluoroscopy. The guidewire was placed in the common bile duct and using sphincterotome. Next the sphincterotome was removed leaving the guidewire in the common bile duct. A balloon was then introduced over the guidewire and the common bile duct and several sweeps were performed. Patient appear to have 2 large impacted stones in the mid common bile duct. A wire basket was placed into the common duct and lithotripsy was performed as the stone was unable to be removed intact. I switched between the wire basket and the balloon several times to clear the duct but after several sweeps the common bile duct was clear of stones. Several fragments of stones were removed and visible in the duodenum. Once the duct was adequately clear of stones, the balloon was removed as well as the guidewire. The side-viewing scope was then withdrawn back into the stomach and the stomach was suctioned. Next, the scope was removed. The patient was taken to PACU in stable condition. The patient tolerated the procedure well. - Admit VTE Documentation VTE Mechan Device Prophylaxis: SCD's
[2017-10-20] MEDS: 0.9% Normal Saline 1,000 ML 100 ML IV ×2 (13:34→23:33)
[2017-10-20] MEDS: HYDROcodone Bitartrate/Apap 5/325 Tablet PO ×2 (19:02→23:31)
[2017-10-20] MEDS: Morphine 2 MG/ML Syringe IV (22:02)
[2017-10-20] MEDS: 0.9% NaCl Peripheral Flush Adult/Peds IV (22:03)
[2017-10-21] VITALS (12 sets, daily range): BP systolic 121–149; BP diastolic 76–95; PULSE 61–108; RESP 16–20; TEMP 36.6–37.7; O2SAT 93–97
[2017-10-21] MEDS: Morphine 4 MG/ML Syringe IV (00:20)
[2017-10-21] MEDS: 0.9% NaCl Peripheral Flush Adult/Peds IV ×5 (00:21→08:42)
--- NOTE | 2017-10-21 00:42 | CT_ITS ---
STUDY: CT ABDOMEN WITH CONTRAST REASON FOR EXAM: Male, 32 years old. Status post ERCP. Increased right upper quadrant pain with nausea and vomiting. Patient is scheduled for cholecystectomy today. RADIATION DOSAGE (If Supplied By Facility): CTDIvol = ( 13.72 ) mGy, DLP = ( 947.45 ) mGycm TECHNIQUE: Transaxial images were obtained post I.V. administration of 100ML ml of Isovue 300 contrast, and without oral contrast. Sagittal and coronal images were reconstructed. Individualized dose optimization techniques were used for this CT. COMPARISON: Abdominal ultrasound 10/15/2017. CT scan 09/07/2017. FINDINGS: There are areas of atelectasis and/or alteration in the posterior lung bases bilaterally The visualized portions of the heart are within normal limits. Normal liver. There is mural thickening of gallbladder in the gallbladder lumen is heterogeneous, consistent with noncalcified gallstones. There is a small amount of air in intrahepatic bile ducts, consistent with recent ERCP. There is no demonstrated bile duct dilatation. Normal spleen. The head of the pancreas is enlarged and there is infiltration of peripancreatic fat. Fat infiltration also extends into the proximal mesentery and extends inferiorly within the right anterior paranephric retroperitoneal space. There is no visualized pancreatic duct dilatation. There is no visualized pseudocyst. Normal bilateral adrenal glands. Normal right kidney. Normal left kidney. Normal visualized stomach. Normal small intestine. Normal colon. The appendix is visualized on axial images 17-78 and it appears normal. Normal abdominal aorta. Normal inferior vena cava. Normal retroperitoneum. Normal abdominal wall. 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 There are multilevel degenerative changes in the spine. CT/Abdomen WITH IV Contrast IMPRESSION: Acute pancreatitis. No demonstrated pseudocyst or pancreatic duct dilatation. Intrahepatic pneumobilia, consistent with recent ERCP. No demonstrated bile duct dilatation. Thick walled gallbladder containing calcified gallstones. Atelectasis and/or infiltration in the visualized posterior lung bases bilaterally. Electronically Signed: Luciano Murphy MD at 2:42 EDT , Service support ,
[2017-10-21] MEDS: Ondansetron 4 MG/2 ML Vial IV (00:52)
[2017-10-21 01:55] LABS: Absolute Lymphocyte Count 1.25 X10^3/ul (0.83-4.51); Absolute Neutrophil Count 16.9 X10^3/uL (2.0-7.7); Basophil# 0.01 X10^3/uL; Eosinophil# 0.01 X10^3/uL; Hematocrit 39.9 % (40-54); Lymphocyte # 1.25 X10^3/ul (4.0); Lymphocyte % 6.2 % (19-41); Mean Corp Hgb Conc 35.1 g/gl (32-36); Mean Corpuscular Hgb 29.1 pg (27.0-32.0); Mean Platelet Vol. 9.9 fl (6.2-12.0); Monocyte# 1.84 X10^3/uL; Monocyte% 9.2 % (0-10); Neutrophil # 16.92 X10^3/uL (2.7-7.7); Neutrophil % 84.4 % (47-70); Platelet Count 340 K/mm3 (150-450); RBC Distribution Width CV 12.7 % (11.6-14.6); RBC Distribution Width SD 37.9 fl (35.1-43.9); Red Blood Count 4.81 M/mm3 (4.6-6.2); White Blood Count 20.1 K/mm3 (4.4-11.0)
[2017-10-21 01:56] LABS: Differential Indicated SCAN CRITERIA MET; POSITIVE COUNT NO; POSITIVE DIFFERENTIAL YES; POSITIVE MORPHOLOGY NO
[2017-10-21 02:03] LABS: Lipase 19597 U/L (73-393)
[2017-10-21 02:08] LABS: ALB/GLOB Ratio 0.8 RATIO (0.9-2.4); AST(SGOT) 33 U/L (15-37); Alanine Aminotransfer ALT/SGPT 60 U/L (16-61); Alkaline Phosphatase 113 U/L (45-117); Anion Gap 9 (5-15); BUN 10 mg/dL (7-18); BUN/Creat Ratio 8.3 RATIO (10-20); Chloride 104 mmol/L (98-107); Creatinine, Serum 1.21 mg/dL (0.70-1.30); EST Glomerular Filtration Rate 74 mL/min (>60); Est Glom Filt Rate - Afr Amer 90 mL/min (>60); Estimated Creatinine Clearance 68.94 ml/min; Globulin 3.8 g/dL (2.2-4.2); Glucose 120 mg/dL (74-106); Potassium 3.7 mmol/L (3.5-5.1); Protein, Total 6.8 g/dL (6.4-8.2); Sodium Level 137 mmol/L (136-145)
[2017-10-21 02:11] LABS: Differential Comment SCANNED
[2017-10-21] MEDS: Lactated Ringers 1,000 ML 999 ML IV (02:26)
[2017-10-21] MEDS: Lactated Ringers 1,000 ML 150 ML IV ×3 (02:27→18:47)
[2017-10-21] MEDS: HYDROmorphone 1 MG/ML Syringe IV ×4 (02:36→11:54)
--- NOTE | 2017-10-21 08:24 | PCM.PN.SRG ---
Subjective: The patient developed epigastric pain and right upper quadrant pain in the middle the night as well as nausea and vomiting. CT scan revealed pancreatitis. Lipase is elevated as well. He reports this morning he is feeling less nauseous and the pain is gone pain medication. Patient denies any fevers or chills. - Physical Exam General: Alert, Oriented x3, Cooperative HEENT: Atraumatic Neck: No JVD Lungs: Normal air movement Cardiovascular: Regular rate, Regular Rhythm Abdomen: Soft, Non-Distended, Tender - Tender in the right upper quadrant and less so the epigastric area. No guarding or rebound. Musculoskeletal: No Muscle Wasting Neurological: Cranial nerves II-XII grossly intact Psych/Mental Status: Normal Affect Vital Signs Temp Pulse Resp BP Pulse Ox 99.0 F 66 16 147/80 H 94 10/21/17 08:09 10/21/17 08:09 10/21/17 08:09 10/21/17 08:09 10/21/17 08:09 Oxygen Flow Rate (L/min) 1 Oxygen Delivery Method Room Air Weight: 226 lb Body Mass Index (BMI) 41.3 Intake and Output for Last 24 Hours 10/19/17 10/20/17 10/21/17 23:59 23:59 23:59 Intake Total 3028 / 3028 1576 / 1576 Output Total 400 / 400 Balance 3028 / 3028 1176 / 1176 Laboratory Tests Past 24 Hrs 10/21/17 10/21/17 10/21/17 01:38 01:38 01:38 WBC 20.1 H RBC 4.81 Hgb 14.0 Hct 39.9 L MCV 83.0 MCH 29.1 MCHC 35.1 RDW 12.7 RDW Differential 37.9 Plt Count 340 MPV 9.9 Immature Gran % (Auto) 0.200 Neut % (Auto) 84.4 H Lymph % (Auto) 6.2 L [place] % (Auto) 9.2 Eos % (Auto) 0.0 Baso % (Auto) 0.0 Absolute Neuts (auto) 16.9 H Absolute Lymphs (auto) 1.25 Total Counted Not Reportable Differential Comment SCANNED Sodium 137 Potassium 3.7 Chloride 104 Carbon Dioxide 24.0 Anion Gap 9 BUN 10 Creatinine 1.21 Estim Creat Clear Calc 68.94 Est GFR (MDRD) Af Amer 90 Est GFR (MDRD) Non-Af 74 BUN/Creatinine Ratio 8.3 L Glucose 120 H Calcium 8.0 L Total Bilirubin 0.70 AST 33 ALT 60 Alkaline Phosphatase 113 Total Protein 6.8 Albumin 3.0 L Globulin 3.8 Albumin/Globulin Ratio 0.8 L Lipase 54461 H Clinical Impression(s) from Imaging Studies ERCP X-Ray 10/20/17 09:30 IMPRESSION: Successful removal of the common bile duct calculus. Electronically Signed: Raphael Sellers MD at 11:31 EDT Tel [phone], Service support , Abdomen CT 10/21/17 00:42 IMPRESSION: Acute pancreatitis. No demonstrated pseudocyst or pancreatic duct dilatation. Intrahepatic pneumobilia, consistent with recent ERCP. No demonstrated bile duct dilatation. Thick walled gallbladder containing calcified gallstones. Atelectasis and/or infiltration in the visualized posterior lung bases bilaterally. Electronically Signed: Luciano Murphy MD at 2:42 EDT , Service support , Medical Necessity - Tobacco Use Smoking Status: Former smoker Tobacco Use: Chew Assessment/Plan All Active Problems Choledocholithiasis with obstruction (Acute) 32-year-old male with choledocholithiasis status post ERCP and postoperative ERCP pancreatitis 1. The patient developed pancreatitis after his ERCP. CT scan reveals inflammation around the head of the pancreas. There are no air bubbles to indicate perforation. Lipase was elevated overnight. Repeat lipase is pending. The patient also had thickened gallbladder wall on CAT scan. 2. I believe the patient also has acute cholecystitis that was not diagnosed in the emergency room last week. I am not sure how much of this pain is pancreatitis versus acute cholecystitis. I would still like to perform a laparoscopic cholecystectomy if possible as I do not know how long the pancreatitis will take to resolve and he has active acute cholecystitis. If I am unable to remove the gallbladder due to inflammation I will place a cholecystostomy tube laparoscopically and this should resolve the acute cholecystitis and I can perform a laparoscopic cholecystectomy once pancreatitis has resolved. 3. I started the patient on a higher level fluids and gave him a fluid bolus overnight. Monitor strict I's and O's. Pain medication. N.p.o./IV fluids. Sampson Raymond MD Pager: [facility] [address] [place] [address], [address] [place] [address] Office:
[2017-10-21] MEDS: Pantoprazole Sodium 40 MG Tablet PO (09:17)
[2017-10-21 09:31] LABS: Anion Gap 9 (5-15); BUN 9 mg/dL (7-18); BUN/Creat Ratio 9.3 RATIO (10-20); Calcium,Total 8.1 mg/dL (8.5-10.1); Chloride 104 mmol/L (98-107); Creatinine, Serum 0.97 mg/dL (0.70-1.30); EST Glomerular Filtration Rate 96 mL/min (>60); Est Glom Filt Rate - Afr Amer 116 mL/min (>60); Glucose 125 mg/dL (74-106); Lipase 8704 U/L (73-393); Potassium 3.8 mmol/L (3.5-5.1); Sodium Level 139 mmol/L (136-145)
--- NOTE | 2017-10-21 11:11 | CASEMGMT ---
Face to Face with patient for initial transition planning/care coordination assessment. ASHLEY JOHNSON introduced self and role at [facility], pt voices understanding and consents to assessment at this time. Pt is sitting up in bed in no distress at this time. Pt is A/O x4 at this time and answers all questions appropriately at this time. Care providers, pharmacy, and demographics verified. See attached link. Pt voices no further concerns/needs at this time. Advised pt to ask for CM if any further questions/concerns/needs arise, voices understanding. PLAN: [place] ASHLEY JOHNSON
[2017-10-21] MEDS: Bupiv/Epi 0.5% Mpf 30 ML Vial (14:06)
--- NOTE | 2017-10-21 14:30 | GALL_PTH ---
PATIENT: ZEYNEP THIBODEAUX LOC: PCU U#:[id number] AGE/SX: 32/M ROOM: [facility] RE10/20/[address]: Dr. Sampson Raymond MD : 1985 BED: 1 DIS: 10/26/2017 SPEC #: [id number] RECD: 10/22/17 09:15 STATUS: PAT MARLENE #: [id number] RENETTA: 10/21/17 14:[address]: Sampson Raymond DEPT: SURGICAL PATHOLOGY RECD BY: Houston Seo ENTERED: 10/22/17 09:39 SP TYPE: MIGUEL ANGEL ZIEGLER DR: Dr. Kristin Diaz MD Tissues: Gallbladder, NOS Procedures: Surgery Specimen Level III HEADER OPERATION: Laparoscopic cholecystectomy PRE-OP DIAGNOSIS: Acute cholecystitis TISSUE SUBMITTED: Gallbladder MICROSCOPIC DIAGNOSIS Gallbladder: Acute and chronic ulcerated and hemorrhagic cholecystitis and cholelithiasis. See comment. SJ:norah 10/23/17 COMMENT The epithelium is denuded in most of the sections examined. The epithelium is noted only focally and shows reactive changes. MICROSCOPIC DESCRIPTION Slides are reviewed. GROSS DESCRIPTION Received is one container labeled with the patient's name and designated gallbladder. The specimen consists of a gallbladder in 4 variable sized pieces measuring in aggregate 6 x 5 x 2.5 cm. The external surface is congested and hemorrhagic. The mucosa is also congested and hemorrhagic. The portion of the gallbladder which shows lumen is filled with blood clot. The gallbladder could not be oriented. Also present in the container are 4 variable sized mulberry mckeon-light yellow stones measuring in aggregate 1.5 x 1.2 x 0.3 cm. The gallbladder wall measures up to 1 cm in thickness. No mass lesion is identified Research Asst sections are submitted in 3 cassettes. / SABINE:sp 10/22/17 TC:2 CPT: 13116
--- NOTE | 2017-10-21 16:46 | PCM.OPRPT ---
Problem List (1) Acute cholecystitis Status: Acute Report of Operation Date of Procedure: 10/21/17 Pre-Operative Diagnosis: Acute cholecystitis Post-Operative Diagnosis: Acute purulent cholecystitis Surgery/Procedure Performed:: Laparoscopic partial cholecystectomy with drain placement Specimen's removed: Gallbladder and contents Description of Procedure: After obtaining informed consent patient was brought back to the operating room. General anesthesia was induced. The abdomen was prepped and draped in usual sterile fashion. A small midline incision was made superior to the umbilicus and deepened to the level of fascia. The fascia was elevated and incised. Next the peritoneum was elevated and incised in the same fashion. Finger sweep was performed and the Rausch trocar was placed into the abdomen. The balloon was inflated. The abdomen was inflated to 15 mmHg. Next a camera was introduced into the abdomen and the abdomen was inspected. The gallbladder appeared very inflamed and adherent to the omentum. Next under direct visualization three 5-mm ports were placed one subxiphoid and 2 subcostal. Next the gallbladder was elevated and retracted toward the right shoulder. The adhesions to the colon and omentum were lysed and the peritoneum was stripped from the gallbladder. The gallbladder was extremely thick-walled. I was unable to locate the infundibulum to the superior dome of the gallbladder was punctured with the grasper and purulent material drained. The gallbladder appeared to be filled with pus and gallstones. The gallbladder was taken off the liver in a dome down fashion. Once the dissection was able to be carried any further the gallbladder was divided with harmonic scalpel. The gallbladder segments were placed in a bag as well as the gallstones. Hemostasis on the liver bed was obtained with argon beam coagulation. The stump of the gallbladder was left intact and the lumen was inspected. The right upper quadrant was irrigated copiously and suctioned dry. There appeared to be good hemostasis. A 15 mm round drain was placed into the right upper quadrant and out of the right upper quadrant incision. This was placed to bulb suction. Next the Endopouch bag was removed through the umbilical port with the remnants of the gallbladder and stones. The gallbladder fossa was inspected once more and noted to be hemostatic with no leaking bile. The abdomen was suctioned dry the 5 mm ports were removed under direct visualization. The umbilical port was then removed and the air was removed from the abdomen. Next using an 0 Vicryl suture the umbilical fascia was closed in a [id number] fashion. The umbilical port site was irrigated local anesthetic was administered to all the incisions. All the incisions were closed subcuticular 4-0 Monocryl sutures followed by Steri-Strips and dressings. The patient was awoken and taken to PACU in stable condition. - Admit VTE Documentation VTE Mechan Device Prophylaxis: SCD's
[2017-10-21] MEDS: Piperacil/Tazobactam 3.375 GM/50 ML ML IV (18:47)
[2017-10-21] MEDS: HYDROcodone Bitartrate/Apap 5/325 Tablet PO (22:34)
[2017-10-22] MEDS: Lactated Ringers 1,000 ML 150 ML IV ×2 (00:17→05:49)
[2017-10-22 02:00] VITALS: BP 141/84; PULSE 87; RESP 18; TEMP 37.2; O2SAT 92
[2017-10-22] MEDS: HYDROcodone Bitartrate/Apap 5/325 Tablet PO ×5 (04:15→23:37)
[2017-10-22 05:47] VITALS: BP 144/95; PULSE 91; RESP 18; TEMP 36.8; O2SAT 95
[2017-10-22] MEDS: Piperacil/Tazobactam 3.375 GM/50 ML ML IV ×3 (05:48→22:15)
[2017-10-22 06:11] LABS: ALB/GLOB Ratio 0.7 RATIO (0.9-2.4); AST(SGOT) 63 U/L (15-37); Alanine Aminotransfer ALT/SGPT 91 U/L (16-61); Albumin, Serum 2.6 g/dL (3.2-5.0); Alkaline Phosphatase 93 U/L (45-117); Anion Gap 7 (5-15); BUN 9 mg/dL (7-18); BUN/Creat Ratio 10.2 RATIO (10-20); Calcium,Total 8.1 mg/dL (8.5-10.1); Chloride 104 mmol/L (98-107); Creatinine, Serum 0.88 mg/dL (0.70-1.30); EST Glomerular Filtration Rate 107 mL/min (>60); Est Glom Filt Rate - Afr Amer 130 mL/min (>60); Estimated Creatinine Clearance 94.79 ml/min; Globulin 3.7 g/dL (2.2-4.2); Glucose 109 mg/dL (74-106); Potassium 3.6 mmol/L (3.5-5.1); Protein, Total 6.3 g/dL (6.4-8.2); Sodium Level 140 mmol/L (136-145)
[2017-10-22 06:21] LABS: Absolute Lymphocyte Count 1.31 X10^3/ul (0.83-4.51); Absolute Neutrophil Count 18.1 X10^3/uL (2.0-7.7); Basophil# 0.02 X10^3/uL; Basophil% 0.1 % (0-1); Hematocrit 38.5 % (40-54); Lymphocyte # 1.31 X10^3/ul (4.0); Lymphocyte % 6.2 % (19-41); Mean Corp Hgb Conc 33.8 g/gl (32-36); Mean Corpuscular Hgb 28.8 pg (27.0-32.0); Mean Corpuscular Volume 85.2 fL (80-94); Mean Platelet Vol. 10.5 fl (6.2-12.0); Monocyte# 1.65 X10^3/uL; Monocyte% 7.8 % (0-10); Neutrophil # 18.12 X10^3/uL (2.7-7.7); Neutrophil % 85.6 % (47-70); Platelet Count 348 K/mm3 (150-450); RBC Distribution Width CV 12.7 % (11.6-14.6); Red Blood Count 4.52 M/mm3 (4.6-6.2); White Blood Count 21.2 K/mm3 (4.4-11.0)
[2017-10-22 06:22] LABS: Differential Indicated SCAN CRITERIA MET; POSITIVE COUNT NO; POSITIVE DIFFERENTIAL YES; POSITIVE MORPHOLOGY NO
[2017-10-22 06:40] LABS: Differential Comment SCANNED
--- NOTE | 2017-10-22 08:37 | PCM.PN.SRG ---
Patient Problems: Active and Suspected Problems Acute cholecystitis (Acute) Subjective: Patient reports he is having some epigastric pain but the right upper quadrant pain is greatly improved. He is having no nausea or vomiting. He is having no flatus. His pain is well controlled on pain medication. - Physical Exam General: Alert, Oriented x3, Cooperative, No apparent distress HEENT: Atraumatic Neck: Supple Lungs: Normal air movement Cardiovascular: Regular rate, Regular Rhythm Abdomen: Soft, Non-Distended, Tender - Tender in the epigastric region more than the right upper quadrant., - - Incisions are clean dry and intact. CECILY is serosanguineous. Extremities: No clubbing Skin: No rashes Musculoskeletal: No Muscle Wasting Neurological: Cranial nerves II-XII grossly intact Psych/Mental Status: Normal Affect, Appropriate Vital Signs Temp Pulse Resp BP Pulse Ox 98.2 F 91 18 144/95 H 95 10/22/17 05:47 10/22/17 05:47 10/22/17 05:47 10/22/17 05:47 10/22/17 05:47 Oxygen Flow Rate (L/min) 2 Oxygen Delivery Method Room Air Weight: 225 lb 15.581 oz Body Mass Index (BMI) 41.3 Intake and Output for Last 24 Hours 10/20/17 10/21/17 10/22/17 23:59 23:59 23:59 Intake Total 3028 / 3028 5191 / 5191 920 / 920 Output Total 1310 / 1310 40 / 40 Balance 3028 / 3028 3881 / 3881 880 / 880 Laboratory Tests Past 24 Hrs 10/21/17 10/22/17 10/22/17 08:57 05:05 05:05 WBC 21.2 H RBC 4.52 L Hgb 13.0 Hct 38.5 L MCV 85.2 MCH 28.8 MCHC 33.8 RDW 12.7 RDW Differential 39.0 Plt Count 348 MPV 10.5 Immature Gran % (Auto) 0.300 Neut % (Auto) 85.6 H Lymph % (Auto) 6.2 L [place] % (Auto) 7.8 Eos % (Auto) 0.0 Baso % (Auto) 0.1 Absolute Neuts (auto) 18.1 H Absolute Lymphs (auto) 1.31 Total Counted Not Reportable Differential Comment SCANNED Sodium 139 140 Potassium 3.8 3.6 Chloride 104 104 Carbon Dioxide 26.0 29.0 Anion Gap 9 7 BUN 9 9 Creatinine 0.97 0.88 Estim Creat Clear Calc 86.00 94.79 Est GFR (MDRD) Af Amer 116 130 Est GFR (MDRD) Non-Af 96 107 BUN/Creatinine Ratio 9.3 L 10.2 Glucose 125 H 109 H Calcium 8.1 L 8.1 L Total Bilirubin 0.90 AST 63 H ALT 91 H Alkaline Phosphatase 93 Total Protein 6.3 L Albumin 2.6 L Globulin 3.7 Albumin/Globulin Ratio 0.7 L Lipase 8704 H Medical Necessity - Tobacco Use Smoking Status: Former smoker Tobacco Use: Chew Assessment/Plan All Active Problems Choledocholithiasis with obstruction (Acute) Acute cholecystitis (Acute) 32-year-old male with acute cholecystitis and post ERCP pancreatitis 1. Patient's CECILY is serosanguineous and his incisions are clean dry and intact. He reports he still having epigastric pain so I will keep him n.p.o. with sips of water and ice chips. 2. Continue CECILY monitoring for bile leak as the patient had a partial cholecystectomy. 3. Patient appears to have good urine output. I will decrease his fluids. 4. When the patient's pancreatitis seems to be improving and his epigastric pain is lessening I will start a diet and once he is tolerating a diet I will remove his CECILY drain and discharge him home. 5. Continue antibiotics. Sampson Raymond MD Pager: [facility] [address] [place] [address], [address] [place] [address] Office:
[2017-10-22 08:44] VITALS: O2SAT 95
--- NOTE | 2017-10-22 08:44 | PN.SURG_ITS ---
Patient Problems: Active and Suspected Problems Acute cholecystitis (Acute) Subjective: Patient reports he is having some epigastric pain but the right upper quadrant pain is greatly improved. He is having no nausea or vomiting. He is having no flatus. His pain is well controlled on pain medication. - Physical Exam General: Alert, Oriented x3, Cooperative, No apparent distress HEENT: Atraumatic Neck: Supple Lungs: Normal air movement Cardiovascular: Regular rate, Regular Rhythm Abdomen: Soft, Non-Distended, Tender - Tender in the epigastric region more than the right upper quadrant., - - Incisions are clean dry and intact. CECILY is serosanguineous. Extremities: No clubbing Skin: No rashes Musculoskeletal: No Muscle Wasting Neurological: Cranial nerves II-XII grossly intact Psych/Mental Status: Normal Affect, Appropriate Vital Signs Temp Pulse Resp BP Pulse Ox 98.2 F 91 18 144/95 H 95 10/22/17 05:47 10/22/17 05:47 10/22/17 05:47 10/22/17 05:47 10/22/17 05:47 Oxygen Flow Rate (L/min) 2 Oxygen Delivery Method Room Air Weight: 225 lb 15.581 oz Body Mass Index (BMI) 41.3 Intake and Output for Last 24 Hours 10/20/17 10/21/17 10/22/17 23:59 23:59 23:59 Intake Total 3028 / 3028 5191 / 5191 920 / 920 Output Total 1310 / 1310 40 / 40 Balance 3028 / 3028 3881 / 3881 880 / 880 Laboratory Tests Past 24 Hrs 10/21/17 10/22/17 10/22/17 08:57 05:05 05:05 WBC 21.2 H RBC 4.52 L Hgb 13.0 Hct 38.5 L MCV 85.2 MCH 28.8 MCHC 33.8 RDW 12.7 RDW Differential 39.0 Plt Count 348 MPV 10.5 Immature Gran % (Auto) 0.300 Neut % (Auto) 85.6 H Lymph % (Auto) 6.2 L [place] % (Auto) 7.8 Eos % (Auto) 0.0 Baso % (Auto) 0.1 Absolute Neuts (auto) 18.1 H Absolute Lymphs (auto) 1.31 Total Counted Not Reportable Differential Comment SCANNED Sodium 139 140 Potassium 3.8 3.6 Chloride 104 104 Carbon Dioxide 26.0 29.0 Anion Gap 9 7 BUN 9 9 Creatinine 0.97 0.88 Estim Creat Clear Calc 86.00 94.79 Est GFR (MDRD) Af Amer 116 130 Est GFR (MDRD) Non-Af 96 107 BUN/Creatinine Ratio 9.3 L 10.2 Glucose 125 H 109 H Calcium 8.1 L 8.1 L Total Bilirubin 0.90 AST 63 H ALT 91 H Alkaline Phosphatase 93 Total Protein 6.3 L Albumin 2.6 L Globulin 3.7 Albumin/Globulin Ratio 0.7 L Lipase 8704 H Medical Necessity - Tobacco Use Smoking Status: Former smoker Tobacco Use: Chew Assessment/Plan All Active Problems Choledocholithiasis with obstruction (Acute) Acute cholecystitis (Acute) 32-year-old male with acute cholecystitis and post ERCP pancreatitis 1. Patient's CECILY is serosanguineous and his incisions are clean dry and intact. He reports he still having epigastric pain so I will keep him n.p.o. with sips of water and ice chips. 2. Continue CECILY monitoring for bile leak as the patient had a partial cholecystectomy. 3. Patient appears to have good urine output. I will decrease his fluids. 4. When the patient's pancreatitis seems to be improving and his epigastric pain is lessening I will start a diet and once he is tolerating a diet I will remove his CECILY drain and discharge him home. 5. Continue antibiotics. Sampson Raymond MD Pager: [facility] [address] [place] [address], [address] [place] [address] Office:
[2017-10-22] MEDS: Pantoprazole Sodium 40 MG Tablet PO (08:54)
[2017-10-22 08:58] VITALS: BP 144/77; PULSE 80; RESP 18; TEMP 36.8; O2SAT 97
[2017-10-22 14:16] VITALS: BP 135/79; PULSE 80; RESP 18; TEMP 37.2; O2SAT 98
[2017-10-22] MEDS: Lactated Ringers 1,000 ML 100 ML IV ×2 (14:22→23:50)
[2017-10-22 20:16] VITALS: BP 144/74; PULSE 85; RESP 16; TEMP 37.4; O2SAT 95
[2017-10-23 02:06] VITALS: BP 134/71; PULSE 79; RESP 16; TEMP 36.9; O2SAT 95
[2017-10-23] MEDS: 0.9% NaCl Peripheral Flush Adult/Peds IV ×4 (02:19→14:34)
[2017-10-23] MEDS: HYDROmorphone 1 MG/ML Syringe IV ×5 (02:20→19:36)
[2017-10-23] MEDS: Piperacil/Tazobactam 3.375 GM/50 ML ML IV ×3 (05:34→21:54)
[2017-10-23] MEDS: HYDROcodone Bitartrate/Apap 5/325 Tablet PO ×2 (05:38→12:42)
[2017-10-23 05:41] VITALS: BP 148/92; PULSE 82; RESP 16; TEMP 37; O2SAT 95
[2017-10-23 06:02] LABS: Absolute Lymphocyte Count 1.59 X10^3/ul (0.83-4.51); Absolute Neutrophil Count 16.9 X10^3/uL (2.0-7.7); Basophil# 0.03 X10^3/uL; Basophil% 0.1 % (0-1); Eosinophils% 0.5 % (0-5); Hematocrit 37.8 % (40-54); Hemoglobin 12.8 g/dl (13.0-16.5); Lymphocyte # 1.59 X10^3/ul (4.0); Lymphocyte % 7.8 % (19-41); Mean Corp Hgb Conc 33.9 g/gl (32-36); Mean Corpuscular Hgb 28.8 pg (27.0-32.0); Mean Corpuscular Volume 84.9 fL (80-94); Mean Platelet Vol. 10.1 fl (6.2-12.0); Monocyte# 1.59 X10^3/uL; Monocyte% 7.8 % (0-10); Neutrophil # 16.92 X10^3/uL (2.7-7.7); Neutrophil % 83.4 % (47-70); Platelet Count 345 K/mm3 (150-450); RBC Distribution Width CV 12.6 % (11.6-14.6); RBC Distribution Width SD 38.7 fl (35.1-43.9); Red Blood Count 4.45 M/mm3 (4.6-6.2); White Blood Count 20.3 K/mm3 (4.4-11.0)
[2017-10-23 06:03] LABS: Differential Indicated SCAN CRITERIA MET; POSITIVE COUNT NO; POSITIVE DIFFERENTIAL YES; POSITIVE MORPHOLOGY NO
[2017-10-23 06:22] LABS: Anion Gap 9 (5-15); BUN 8 mg/dL (7-18); BUN/Creat Ratio 10.6 RATIO (10-20); Calcium,Total 8.2 mg/dL (8.5-10.1); Chloride 101 mmol/L (98-107); Creatinine, Serum 0.76 mg/dL (0.70-1.30); EST Glomerular Filtration Rate 128 mL/min (>60); Est Glom Filt Rate - Afr Amer 155 mL/min (>60); Estimated Creatinine Clearance 109.76 ml/min; Glucose 100 mg/dL (74-106); Potassium 3.5 mmol/L (3.5-5.1); Sodium Level 137 mmol/L (136-145)
[2017-10-23 07:15] VITALS: O2SAT 94
--- NOTE | 2017-10-23 07:53 | PCM.PN.SRG ---
Patient Problems: Active and Suspected Problems Acute cholecystitis (Acute) Subjective: Patient is having some right upper quadrant pain today. He reports his epigastric pain is improving but is right upper quadrant pain is a little worse. No nausea or vomiting. He is not passing gas yet. - Physical Exam General: Alert, Oriented x3, Cooperative Lungs: Normal air movement Cardiovascular: Regular rate, Regular Rhythm Abdomen: Soft, Non-Distended, Tender - Tender in the right upper quadrant and epigastric regions. No guarding. Vital Signs Temp Pulse Resp BP Pulse Ox 98.6 F 82 16 148/92 H 94 10/23/17 05:41 10/23/17 05:41 10/23/17 05:41 10/23/17 05:41 10/23/17 07:15 Oxygen Flow Rate (L/min) 2 Oxygen Delivery Method Room Air Weight: 225 lb 15.581 oz Body Mass Index (BMI) 41.3 Intake and Output for Last 24 Hours 10/21/17 10/22/17 10/23/17 23:59 23:59 23:59 Intake Total 5191 / 5191 3086.9 / 3086.9 792.7 / 792.7 Output Total 1310 / 1310 950 / 950 330 / 330 Balance 3881 / 3881 2136.9 / 2136.9 462.7 / 462.7 Laboratory Tests Past 24 Hrs 10/23/17 10/23/17 05:30 05:30 WBC 20.3 H RBC 4.45 L Hgb 12.8 L Hct 37.8 L MCV 84.9 MCH 28.8 MCHC 33.9 RDW 12.6 RDW Differential 38.7 Plt Count 345 MPV 10.1 Immature Gran % (Auto) 0.400 Neut % (Auto) 83.4 H Lymph % (Auto) 7.8 L [place] % (Auto) 7.8 Eos % (Auto) 0.5 Baso % (Auto) 0.1 Absolute Neuts (auto) 16.9 H Absolute Lymphs (auto) 1.59 Total Counted Not Reportable Differential Comment Diff Path Review May foll Sodium 137 Potassium 3.5 Chloride 101 Carbon Dioxide 27.0 Anion Gap 9 BUN 8 Creatinine 0.76 Estim Creat Clear Calc 109.76 Est GFR (MDRD) Af Amer 155 Est GFR (MDRD) Non-Af 128 BUN/Creatinine Ratio 10.6 Glucose 100 Calcium 8.2 L Medical Necessity - Tobacco Use Smoking Status: Former smoker Tobacco Use: Chew Assessment/Plan All Active Problems Choledocholithiasis with obstruction (Acute) Acute cholecystitis (Acute) 32-year-old male with acute cholecystitis and post ERCP pancreatitis 1. Patient is doing well this morning. His vitals are stable and he is making urine. His CECILY is serosanguineous with no bile. He is reporting some right upper quadrant pain and epigastric pain. He reports his epigastric pain is improving but his right upper quadrant pain got a little worse. 2. His WBC is still elevated at 20. I suspect this is from his pancreatitis. The patient's vitals are stable and he is making good urine. It is unlikely that he would have a postoperative abscess this early. If his white count does not drop over the weekend I will get a CAT scan to rule out pancreatic abscess. 3. As he is still having pain and not passing flatus I will continue n.p.o. with sips of water. 4. Continue antibiotics. Sampson Raymond MD Pager: [facility] [address] [place] [address], [address] [place] [address] Office:
[2017-10-23] MEDS: Lactated Ringers 1,000 ML 100 ML IV ×2 (08:33→19:37)
[2017-10-23 08:36] VITALS: BP 131/81; PULSE 85; RESP 20; TEMP 37; O2SAT 95
[2017-10-23] MEDS: Pantoprazole Sodium 40 MG Tablet PO (08:44)
--- NOTE | 2017-10-23 11:37 | NURSING ---
Sitting up in chair. painful. States he went for a walk and almost was able to pass flatus but didn't want to push it. Back in bed, getting pain medication.
[2017-10-23 13:26] LABS: Pathologist Review Reviewed
[2017-10-23 14:30] VITALS: BP 146/95; PULSE 74; RESP 18; TEMP 36.9; O2SAT 96
[2017-10-23] MEDS: oxyCODONE 5 MG Tablet PO ×2 (16:47→23:58)
[2017-10-23] MEDS: Docusate Sodium 100 MG Capsule PO (16:47)
[2017-10-23 20:30] VITALS: BP 135/75; PULSE 63; RESP 16; TEMP 37.1; O2SAT 95
[2017-10-24] MEDS: HYDROmorphone 1 MG/ML Syringe IV ×5 (02:21→23:59)
[2017-10-24 02:30] VITALS: BP 127/80; PULSE 75; RESP 16; TEMP 37.2; O2SAT 92
[2017-10-24] MEDS: Lactated Ringers 1,000 ML 100 ML IV ×2 (05:24→15:16)
[2017-10-24] MEDS: Piperacil/Tazobactam 3.375 GM/50 ML ML IV ×3 (05:25→21:18)
[2017-10-24 05:30] VITALS: BP 139/82; PULSE 74; RESP 16; TEMP 36.8; O2SAT 96
[2017-10-24 06:13] LABS: Absolute Lymphocyte Count 1.82 X10^3/ul (0.83-4.51); Absolute Neutrophil Count 17.2 X10^3/uL (2.0-7.7); Basophil# 0.03 X10^3/uL; Basophil% 0.1 % (0-1); Eosinophil# 0.17 X10^3/uL; Eosinophils% 0.8 % (0-5); Hematocrit 35.5 % (40-54); Lymphocyte # 1.82 X10^3/ul (4.0); Lymphocyte % 8.7 % (19-41); Mean Corp Hgb Conc 33.8 g/gl (32-36); Mean Corpuscular Hgb 28.4 pg (27.0-32.0); Mean Corpuscular Volume 83.9 fL (80-94); Monocyte% 8.1 % (0-10); Neutrophil % 81.9 % (47-70); Platelet Count 355 K/mm3 (150-450); RBC Distribution Width CV 12.5 % (11.6-14.6); Red Blood Count 4.23 M/mm3 (4.6-6.2)
[2017-10-24 06:14] LABS: Differential Indicated SCAN CRITERIA MET; POSITIVE COUNT NO; POSITIVE DIFFERENTIAL YES; POSITIVE MORPHOLOGY NO
[2017-10-24 06:22] LABS: ALB/GLOB Ratio 0.5 RATIO (0.9-2.4); AST(SGOT) 19 U/L (15-37); Alanine Aminotransfer ALT/SGPT 45 U/L (16-61); Albumin, Serum 2.3 g/dL (3.2-5.0); Alkaline Phosphatase 81 U/L (45-117); Anion Gap 11 (5-15); BUN 10 mg/dL (7-18); BUN/Creat Ratio 15.7 RATIO (10-20); Chloride 100 mmol/L (98-107); Creatinine, Serum 0.64 mg/dL (0.70-1.30); EST Glomerular Filtration Rate 156 mL/min (>60); Est Glom Filt Rate - Afr Amer 189 mL/min (>60); Estimated Creatinine Clearance 130.34 ml/min; Globulin 4.2 g/dL (2.2-4.2); Glucose 99 mg/dL (74-106); Lipase 358 U/L (73-393); Potassium 3.4 mmol/L (3.5-5.1); Protein, Total 6.5 g/dL (6.4-8.2); Sodium Level 137 mmol/L (136-145)
[2017-10-24 06:38] LABS: Differential Comment SCANNED
--- NOTE | 2017-10-24 07:10 | PCM.PN.SRG ---
Patient Problems: Active and Suspected Problems Acute cholecystitis (Acute) Subjective: Patient reports improvement. He says his pain is less and his medication is working well. He reports he actually slept last night. He has no nausea or vomiting. He says the pain in the right upper quadrant and epigastric regions have improved. He denies any fevers or chills. He does say he started passing a small amount of flatus. - Physical Exam General: Alert, Oriented x3, Cooperative HEENT: Atraumatic Lungs: Normal air movement Cardiovascular: Regular rate, Regular Rhythm Abdomen: Soft, Non-Distended, Tender - Tender in the epigastric and right upper quadrants. No guarding or rebound., - - Incisions are clean dry and intact and CECILY is serosanguineous. Neurological: Cranial nerves II-XII grossly intact Vital Signs Temp Pulse Resp BP Pulse Ox 98.3 F 74 16 139/82 H 96 10/24/17 05:30 10/24/17 05:30 10/24/17 05:30 10/24/17 05:30 10/24/17 05:30 Oxygen Flow Rate (L/min) 2 Oxygen Delivery Method Room Air Weight: 225 lb 15.581 oz Body Mass Index (BMI) 41.3 Intake and Output for Last 24 Hours 10/22/17 10/23/17 10/24/17 23:59 23:59 23:59 Intake Total 3086.9 / 3086.9 2305.7 / 2305.7 2274 / 2274 Output Total 950 / 950 943 / 943 1055 / 1055 Balance 2136.9 / 2136.9 1362.7 / 1362.7 1219 / 1219 Laboratory Tests Past 24 Hrs 10/23/17 10/24/17 10/24/17 05:30 05:50 05:50 WBC 21.0 H RBC 4.23 L Hgb 12.0 L Hct 35.5 L MCV 83.9 MCH 28.4 MCHC 33.8 RDW 12.5 RDW Differential 38.0 Plt Count 355 MPV 10.0 Immature Gran % (Auto) 0.400 Neut % (Auto) 81.9 H Lymph % (Auto) 8.[address] [place] % (Auto) 8.1 Eos % (Auto) 0.8 Baso % (Auto) 0.1 Absolute Neuts (auto) 17.2 H Absolute Lymphs (auto) 1.82 Total Counted Not Reportable Differential Comment SCANNED Diff Path Review Reviewed Sodium 137 Potassium 3.4 L Chloride 100 Carbon Dioxide 26.0 Anion Gap 11 BUN 10 Creatinine 0.64 L Estim Creat Clear Calc 130.34 Est GFR (MDRD) Af Amer 189 Est GFR (MDRD) Non-Af 156 BUN/Creatinine Ratio 15.7 Glucose 99 Calcium 8.0 L Total Bilirubin 1.00 AST 19 ALT 45 Alkaline Phosphatase 81 Total Protein 6.5 Albumin 2.3 L Globulin 4.2 Albumin/Globulin Ratio 0.5 L Lipase 358 Medical Necessity - Tobacco Use Smoking Status: Former smoker Tobacco Use: Chew Assessment/Plan All Active Problems Choledocholithiasis with obstruction (Acute) Acute cholecystitis (Acute) 32-year-old male status post laparoscopic cholecystectomy, POD 3 1. Patient's lipase is normal today and his physical exam is improving. His white count remains elevated at 21. Patient reports his abdominal pain is improving and he is starting to pass flatus. His epigastric pain is improved but is still there. 2. The patient's clinical exam seems to be improving despite his white count staying elevated. I would like to hold off on a CT until Thursday if possible to get the postop day 5 in case there are any postoperative abscesses. I would expect that if he had any postoperative abscess that he would develop an ileus or fevers or chills or his pain would be getting worse and none of these are occurring. I think we can hold off another day or two for CAT scan. 3. I will plan on removing his CECILY tomorrow if it is still serosanguineous. Continue antibiotics until his white count is improving. Plan to start the patient on clears tomorrow if his epigastric pain continues to improve. Sampson Raymond MD Pager: [facility] [address] [place] [address], [address] [place] [address] Office:
--- NOTE | 2017-10-24 07:13 | PN.SURG_ITS ---
Patient Problems: Active and Suspected Problems Acute cholecystitis (Acute) Subjective: Patient reports improvement. He says his pain is less and his medication is working well. He reports he actually slept last night. He has no nausea or vomiting. He says the pain in the right upper quadrant and epigastric regions have improved. He denies any fevers or chills. He does say he started passing a small amount of flatus. - Physical Exam General: Alert, Oriented x3, Cooperative HEENT: Atraumatic Lungs: Normal air movement Cardiovascular: Regular rate, Regular Rhythm Abdomen: Soft, Non-Distended, Tender - Tender in the epigastric and right upper quadrants. No guarding or rebound., - - Incisions are clean dry and intact and CECILY is serosanguineous. Neurological: Cranial nerves II-XII grossly intact Vital Signs Temp Pulse Resp BP Pulse Ox 98.3 F 74 16 139/82 H 96 10/24/17 05:30 10/24/17 05:30 10/24/17 05:30 10/24/17 05:30 10/24/17 05:30 Oxygen Flow Rate (L/min) 2 Oxygen Delivery Method Room Air Weight: 225 lb 15.581 oz Body Mass Index (BMI) 41.3 Intake and Output for Last 24 Hours 10/22/17 10/23/17 10/24/17 23:59 23:59 23:59 Intake Total 3086.9 / 3086.9 2305.7 / 2305.7 2274 / 2274 Output Total 950 / 950 943 / 943 1055 / 1055 Balance 2136.9 / 2136.9 1362.7 / 1362.7 1219 / 1219 Laboratory Tests Past 24 Hrs 10/23/17 10/24/17 10/24/17 05:30 05:50 05:50 WBC 21.0 H RBC 4.23 L Hgb 12.0 L Hct 35.5 L MCV 83.9 MCH 28.4 MCHC 33.8 RDW 12.5 RDW Differential 38.0 Plt Count 355 MPV 10.0 Immature Gran % (Auto) 0.400 Neut % (Auto) 81.9 H Lymph % (Auto) 8.7 L [place] % (Auto) 8.1 Eos % (Auto) 0.8 Baso % (Auto) 0.1 Absolute Neuts (auto) 17.2 H Absolute Lymphs (auto) 1.82 Total Counted Not Reportable Differential Comment SCANNED Diff Path Review Reviewed Sodium 137 Potassium 3.4 L Chloride 100 Carbon Dioxide 26.0 Anion Gap 11 BUN 10 Creatinine 0.64 L Estim Creat Clear Calc 130.34 Est GFR (MDRD) Af Amer 189 Est GFR (MDRD) Non-Af 156 BUN/Creatinine Ratio 15.7 Glucose 99 Calcium 8.0 L Total Bilirubin 1.00 AST 19 ALT 45 Alkaline Phosphatase 81 Total Protein 6.5 Albumin 2.3 L Globulin 4.2 Albumin/Globulin Ratio 0.5 L Lipase 358 Medical Necessity - Tobacco Use Smoking Status: Former smoker Tobacco Use: Chew Assessment/Plan All Active Problems Choledocholithiasis with obstruction (Acute) Acute cholecystitis (Acute) 32-year-old male status post laparoscopic cholecystectomy, POD 3 1. Patient's lipase is normal today and his physical exam is improving. His white count remains elevated at 21. Patient reports his abdominal pain is improving and he is starting to pass flatus. His epigastric pain is improved but is still there. 2. The patient's clinical exam seems to be improving despite his white count staying elevated. I would like to hold off on a CT until Thursday if possible to get the postop day 5 in case there are any postoperative abscesses. I would expect that if he had any postoperative abscess that he would develop an ileus or fevers or chills or his pain would be getting worse and none of these are occurring. I think we can hold off another day or two for CAT scan. 3. I will plan on removing his CECILY tomorrow if it is still serosanguineous. Continue antibiotics until his white count is improving. Plan to start the patient on clears tomorrow if his epigastric pain continues to improve. Sampson Raymond MD Pager: [facility] [address] [place] [address], [address] [place] [address] Office:
[2017-10-24 07:45] VITALS: O2SAT 93
[2017-10-24] MEDS: 0.9% NaCl Peripheral Flush Adult/Peds IV ×3 (08:30→18:08)
[2017-10-24 10:35] VITALS: BP 140/84; PULSE 72; RESP 16; TEMP 36.6; O2SAT 94
[2017-10-24] MEDS: Pantoprazole Sodium 40 MG Tablet PO (10:41)
[2017-10-24] MEDS: oxyCODONE 5 MG Tablet PO ×3 (10:41→21:18)
[2017-10-24] MEDS: Docusate Sodium 100 MG Capsule PO ×2 (10:41→21:18)
[2017-10-24] MEDS: Enoxaparin 40 MG/0.4 ML Syringe SC (10:42)
[2017-10-24 16:00] VITALS: BP 134/78; PULSE 78; RESP 16; TEMP 36.9; O2SAT 96
[2017-10-24 21:14] VITALS: BP 140/87; PULSE 77; RESP 16; TEMP 37.6; O2SAT 98
[2017-10-25] MEDS: Lactated Ringers 1,000 ML 100 ML IV (01:26)
[2017-10-25 03:15] VITALS: BP 136/85; PULSE 71; RESP 18; TEMP 37.3; O2SAT 94
[2017-10-25] MEDS: Piperacil/Tazobactam 3.375 GM/50 ML ML IV (05:44)
[2017-10-25] MEDS: oxyCODONE 5 MG Tablet PO ×4 (05:45→20:48)
[2017-10-25 07:33] LABS: Absolute Neutrophil Count 14.8 X10^3/uL (2.0-7.7); Basophil# 0.03 X10^3/uL; Basophil% 0.2 % (0-1); Eosinophil# 0.35 X10^3/uL; Eosinophils% 1.9 % (0-5); Hematocrit 34.5 % (40-54); Hemoglobin 11.7 g/dl (13.0-16.5); Lymphocyte % 9.1 % (19-41); Mean Corp Hgb Conc 33.9 g/gl (32-36); Mean Corpuscular Hgb 28.8 pg (27.0-32.0); Mean Platelet Vol. 10.7 fl (6.2-12.0); Monocyte# 1.63 X10^3/uL; Monocyte% 8.8 % (0-10); Neutrophil # 14.76 X10^3/uL (2.7-7.7); Neutrophil % 79.4 % (47-70); Platelet Count 371 K/mm3 (150-450); RBC Distribution Width CV 12.5 % (11.6-14.6); RBC Distribution Width SD 37.9 fl (35.1-43.9); Red Blood Count 4.06 M/mm3 (4.6-6.2); White Blood Count 18.6 K/mm3 (4.4-11.0)
[2017-10-25 07:34] LABS: Differential Indicated SCAN CRITERIA MET; POSITIVE COUNT NO; POSITIVE DIFFERENTIAL YES; POSITIVE MORPHOLOGY NO
[2017-10-25 07:43] LABS: Anion Gap 9 (5-15); BUN 8 mg/dL (7-18); BUN/Creat Ratio 12.7 RATIO (10-20); Calcium,Total 7.9 mg/dL (8.5-10.1); Chloride 100 mmol/L (98-107); Creatinine, Serum 0.63 mg/dL (0.70-1.30); EST Glomerular Filtration Rate 158 mL/min (>60); Est Glom Filt Rate - Afr Amer 191 mL/min (>60); Estimated Creatinine Clearance 132.41 ml/min; Glucose 66 mg/dL (74-106); Magnesium 2.1 mg/dL (1.6-2.6); Potassium 3.4 mmol/L (3.5-5.1); Sodium Level 136 mmol/L (136-145)
--- NOTE | 2017-10-25 07:48 | CT_ITS ---
STUDY: CT ABDOMEN AND PELVIS WITH CONTRAST REASON FOR EXAM: Male, 32 years old. Epigastric pain. Had cholecystectomy 4 days ago. Stent in the common bile duct. RADIATION DOSAGE (If Supplied By Facility): CTDIvol = ( 15.41 ) mGy, DLP = ( 1286.96 ) mGycm TECHNIQUE: Transaxial images were obtained from the dome of the diaphragm to the symphysis pubis with oral contrast. 100 ml of Isovue 300 contrast was administered. Sagittal and coronal images were reconstructed. Individualized dose optimization techniques were used for this CT. COMPARISON: None. FINDINGS: Bibasilar consolidation with small effusions. The visualized portions of the heart are within normal limits. Normal liver. Patient is status post cholecystectomy. Mild pneumobilia. Postsurgical changes in the gallbladder fossa region with some foci of air. Normal spleen. Procedure unremarkable pancreas size of small amount of edema around the pancreatic head, likely from recent surgery. Normal bilateral adrenal glands. Normal right kidney. Normal left kidney. Normal visualized stomach. Normal small intestine. Normal colon. The appendix is visualized and appears normal. Normal abdominal aorta. Normal inferior vena cava. Normal retroperitoneum. Normal urinary bladder. Normal visualized prostate gland. Normal abdominal wall. Normal osseous structures. CT/Abdomen/Pelvis WITH Contrast IMPRESSION: Patient is status post recent cholecystectomy. No evidence of abscess formation or large fluid collection to represent biloma. Expected postoperative soft tissue changes. Some inflammation about the pancreatic head however, again this is likely related to post operative changes. Electronically Signed: César Mccallum DO at 11:09 EDT Tel , Service support ,
--- NOTE | 2017-10-25 07:51 | PN.SURG_ITS ---
Patient Problems: Active and Suspected Problems Acute cholecystitis (Acute) Subjective: Patient reports pain is about a 4 out of 10 after pain medication. He is not having nausea or vomiting but he does not know if he is passing gas. - Physical Exam General: Alert, Oriented x3, Cooperative HEENT: Atraumatic Neck: No JVD Lungs: Normal air movement Cardiovascular: Regular rate, Regular Rhythm Abdomen: Soft, Non-Distended, Tender - Tender in the right upper quadrant epigastric region., - - CECILY is serosanguineous Vital Signs Temp Pulse Resp BP Pulse Ox 99.1 F 71 18 136/85 H 94 10/25/17 03:15 10/25/17 03:15 10/25/17 03:15 10/25/17 03:15 10/25/17 03:15 Oxygen Flow Rate (L/min) 2 Oxygen Delivery Method Room Air Weight: 225 lb 15.581 oz Body Mass Index (BMI) 41.3 Intake and Output for Last 24 Hours 10/23/17 10/24/17 10/25/17 23:59 23:59 23:59 Intake Total 2305.7 / 2305.7 4346.5 / 4346.5 630 / 630 Output Total 943 / 943 2560 / 2560 Balance 1362.7 / 1362.7 1786.5 / 1786.5 630 / 630 Laboratory Tests Past 24 Hrs 10/25/17 10/25/17 05:37 05:37 WBC 18.6 H RBC 4.06 L Hgb 11.7 L Hct 34.5 L MCV 85.0 MCH 28.8 MCHC 33.9 RDW 12.5 RDW Differential 37.9 Plt Count 371 MPV 10.7 Immature Gran % (Auto) 0.600 Neut % (Auto) 79.4 H Lymph % (Auto) 9.1 L [place] % (Auto) 8.8 Eos % (Auto) 1.9 Baso % (Auto) 0.2 Absolute Neuts (auto) 14.8 H Absolute Lymphs (auto) 1.70 Total Counted Pending Sodium 136 Potassium 3.4 L Chloride 100 Carbon Dioxide 27.0 Anion Gap 9 BUN 8 Creatinine 0.63 L Estim Creat Clear Calc 132.41 Est GFR (MDRD) Af Amer 191 Est GFR (MDRD) Non-Af 158 BUN/Creatinine Ratio 12.7 Glucose 66 L Calcium 7.9 L Phosphorus 2.0 L Magnesium 2.1 Medical Necessity - Tobacco Use Smoking Status: Former smoker Tobacco Use: Chew Assessment/Plan All Active Problems Choledocholithiasis with obstruction (Acute) Acute cholecystitis (Acute) 32-year-old male post ERCP pancreatitis and acute cholecystitis 1. The patient's CECILY is still serosanguineous and I removed it. 2. The patient's white count is still 18 today. I will get a CT scan of the abdomen and pelvis to see if he has developed any pancreatic necrosis or pseudocyst. Lipase was normal yesterday. If CT shows improvement I will start him on clear liquid diet. Sampson Raymond MD Pager: [facility] [address] [place] [address], [address] [place] [address] Office:
[2017-10-25] MEDS: Pantoprazole Sodium 40 MG Tablet PO (08:59)
[2017-10-25] MEDS: Docusate Sodium 100 MG Capsule PO ×2 (08:59→20:48)
[2017-10-25] MEDS: HYDROmorphone 1 MG/ML Syringe IV (08:59)
[2017-10-25 09:08] VITALS: BP 139/75; PULSE 90; RESP 16; TEMP 36.3; O2SAT 96
--- NOTE | 2017-10-25 11:48 | NURSING ---
Attempted IV x2 unable to gain iv access.
[2017-10-25] MEDS: Enoxaparin 40 MG/0.4 ML Syringe SC (12:44)
[2017-10-25] MEDS: Na Biphos/Potassium Phosphate PACKET 2 PACKET PO ×2 (14:00→20:49)
[2017-10-25 15:08] VITALS: BP 151/90; PULSE 83; RESP 16; TEMP 36.9; O2SAT 95
[2017-10-25 20:44] VITALS: BP 139/82; PULSE 89; RESP 16; TEMP 37.7; O2SAT 95
[2017-10-25 23:30] VITALS: TEMP 37.3
[2017-10-26 02:40] VITALS: BP 145/83; PULSE 76; RESP 16; TEMP 37.2; O2SAT 96
[2017-10-26] MEDS: oxyCODONE 5 MG Tablet PO (06:12)
--- NOTE | 2017-10-26 08:10 | PN.SURG_ITS ---
Patient Problems: Active and Suspected Problems Acute cholecystitis (Acute) Subjective: Patient doing well this morning. He tolerated clear liquids and had 2 bowel movements overnight. He is having no fevers or chills and his abdominal pain is very much improved. - Physical Exam General: Alert, Oriented x3, Cooperative Lungs: Normal air movement Cardiovascular: Regular rate, Regular Rhythm Abdomen: Soft, Non Tender, Non-Distended Vital Signs Temp Pulse Resp BP Pulse Ox 98.9 F 76 16 145/83 H 96 10/26/17 02:40 10/26/17 02:40 10/26/17 02:40 10/26/17 02:40 10/26/17 02:40 Oxygen Flow Rate (L/min) 2 Oxygen Delivery Method Room Air Weight: 225 lb 15.581 oz Body Mass Index (BMI) 41.3 Intake and Output for Last 24 Hours 10/24/17 10/25/17 10/26/17 23:59 23:59 23:59 Intake Total 4346.5 / 4346.5 1900 / 1900 Output Total 2560 / 2560 Balance 1786.5 / 1786.5 1900 / 1900 Laboratory Tests Past 24 Hrs 10/25/17 05:37 Total Counted Not Reportable Diff Path Review May foll Clinical Impression(s) from Imaging Studies Abdomen/Pelvis CT 10/25/17 07:48 IMPRESSION: Patient is status post recent cholecystectomy. No evidence of abscess formation or large fluid collection to represent biloma. Expected postoperative soft tissue changes. Some inflammation about the pancreatic head however, again this is likely related to post operative changes. Electronically Signed: César Mccallum DO at 11:09 EDT Tel , Service support , ADDENDUM: 10/25/17 1110 Medical Necessity - Tobacco Use Smoking Status: Former smoker Tobacco Use: Chew Assessment/Plan All Active Problems Choledocholithiasis with obstruction (Acute) Acute cholecystitis (Acute) 32-year-old male status post laparoscopic cholecystectomy for acute cholecystitis 1. Patient was unable to get labs drawn this morning due to unable to be drawn. The patient tolerated a clear liquid diet and is having bowel movements and gas. His pain is improving. I will advance his diet to regular and if he tolerates this he can be discharged home. Sampson Raymond MD Pager: [facility] [address] [place] [address], [address] [place] [address] Office:
--- NOTE | 2017-10-26 08:11 | PCM.DC.GB ---
Discharge Diet: Light diet - advance as tolerated Discharge Activity: Return to Normal Activity May shower in (days): 1 - with the bandage in place. Lifting Restrictions: 20 lbs for 2 weeks Additional Activity Instructions:: Pain medication may cause nausea. You should typically eat light foods as you take your pain medications. Pain medication may also cause constipation. If this is a problem for you, please discuss with your doctor. Call your doctor if your incision/area has: Continuous Slow Oozing, Sudden Increased Bleeding, Increased Pain/ Swelling, Increased Redness, Foul Smelling Discharge, Fever of 101 or Higher Call your doctor if you observe: Fever of 101 or Higher Suture Line Care: Avoid Pulling/Pushing, Avoid Pinching/Bending Additional Dressing/Incision Instructions:: Leave Steri-Strips on until your follow-up appointment, or until the Steri-Strips fall off on their own. Allergies/Adverse Reactions: Allergies No Known Allergies Allergy (Verified 10/15/17 18:58) Medications to take at Discharge Esomeprazole Mag Trihydrate [Nexium] 40 mg PO DAILY 10/14/17 Docusate Sodium [Colace] 100 mg PO BID #20 cap 10/26/17 Oxycodone [Oxyir] 5 - 10 mg PO Q4H PRN PRN 7 Days #40 tablet 10/26/17 The following prescriptions were given: Oxycodone [Oxyir] 5 - 10 mg PO Q4H PRN PRN 7 Days #40 tablet PRN Reason: Severe Pain (6-10/10) Docusate Sodium [Colace] 100 mg PO BID #20 cap Primary Care Physician: Kristin Diaz [Primary Care Provider] - Please Follow Up With: Sampson Raymond MD When: Please call to schedule 1 week follow up appointment. [phone]
--- NOTE | 2017-10-26 08:13 | PCM.DC.SUM ---
Discharge Date and Diagnosis - Problem List Patient Problems: Active and Suspected Problems Acute pancreatitis due to calculus of common bile duct (Acute) Acute cholecystitis (Acute) Date of Admission: 10/20/17 Date of Discharge: 10/26/17 - Primary Discharge Diagnosis Active and Suspected Problems Acute pancreatitis due to calculus of common bile duct (Acute) Acute cholecystitis (Acute) Hospital Course and Treatment Imaging Results: Clinical Impression(s) from Imaging Studies ERCP X-Ray 10/20/17 09:30 IMPRESSION: Successful removal of the common bile duct calculus. Electronically Signed: Raphael Sellers MD at 11:31 EDT Tel [phone], Service support , Abdomen CT 10/21/17 00:42 IMPRESSION: Acute pancreatitis. No demonstrated pseudocyst or pancreatic duct dilatation. Intrahepatic pneumobilia, consistent with recent ERCP. No demonstrated bile duct dilatation. Thick walled gallbladder containing calcified gallstones. Atelectasis and/or infiltration in the visualized posterior lung bases bilaterally. Electronically Signed: Luciano Murphy MD at 2:42 EDT , Service support , Abdomen/Pelvis CT 10/25/17 07:48 IMPRESSION: Patient is status post recent cholecystectomy. No evidence of abscess formation or large fluid collection to represent biloma. Expected postoperative soft tissue changes. Some inflammation about the pancreatic head however, again this is likely related to post operative changes. Electronically Signed: César Mccallum DO at 11:09 EDT Tel , Service support , ADDENDUM: 10/25/17 1117 Operations: cholecystecomy, ERCP Procedures: None Summary of Care Provided: The patient is a 32 year old M who came in for an elective ERCP with stone removal after having a stent placed 6 weeks ago. Upon interviewing the patient before surgery it was noted that he was recently in the emergency room with a white count of 17 and was having right upper quadrant pain. The patient seem to be having acute cholecystitis. He was taken for ERCP and the stone was removed. He did come down with postop pancreatitis the following morning. The pancreatitis was seen on CAT scan but the patient's lipase was improving so he was taken for laparoscopic cholecystectomy. His gallbladder was very inflamed and a partial cholecystectomy was completed and the gallbladder stump was left. A drain was placed and the patient was admitted to the floor. On postop day 4 his drain was removed and a CT revealed improving pancreatitis with no abscess. He was started on clear liquid diet. He tolerated clear liquid diet and was advanced to a regular diet. Once he is tolerating regular diet and having bowel movements he was discharged home in stable condition. He will follow-up in 1 week. He was instructed that if anything worsened instead of getting better he was to call me immediately. Discharge Diet: Light diet - advance as tolerated Discharge Activity: Return to Normal Activity May shower in (days): 1 - with the bandage in place. Additional Activity Instructions:: Pain medication may cause nausea. You should typically eat light foods as you take your pain medications. Pain medication may also cause constipation. If this is a problem for you, please discuss with your doctor. Call your doctor if your incision/area has: Continuous Slow Oozing, Sudden Increased Bleeding, Increased Pain/ Swelling, Increased Redness, Foul Smelling Discharge, Fever of 101 or Higher Call your doctor if you observe: Fever of 101 or Higher Suture Line Care: Avoid Pulling/Pushing, Avoid Pinching/Bending Additional Dressing/Incision Instructions:: Leave Steri-Strips on until your follow-up appointment, or until the Steri-Strips fall off on their own. Home Medications: Medications to take at Discharge Esomeprazole Mag Trihydrate [Nexium] 40 mg PO DAILY 10/14/17 Docusate Sodium [Colace] 100 mg PO BID #20 cap 10/26/17 Oxycodone [Oxyir] 5 - 10 mg PO Q4H PRN PRN 7 Days #40 tablet 10/26/17 Following Prescrptions Were Given to Patient: Oxycodone [Oxyir] 5 - 10 mg PO Q4H PRN PRN 7 Days #40 tablet PRN Reason: Severe Pain (6-02/03) Docusate Sodium [Colace] 100 mg PO BID #20 cap Primary Care Physician: Kristin Diaz [Primary Care Provider] - Please Follow Up With: Sampson Raymond MD When: Please call to schedule 1 week follow up appointment. [phone] Medical Necessity - Tobacco Use Smoking Status: Former smoker Tobacco Use: Chew Meaningful Use Info Meaningful Use Diagnoses (Choose all that apply): None applicable
[2017-10-26 09:12] LABS: Absolute Neutrophil Count 15.9 X10^3/uL (2.0-7.7); Basophil# 0.05 X10^3/uL; Basophil% 0.3 % (0-1); Eosinophil# 0.33 X10^3/uL; Eosinophils% 1.7 % (0-5); Hematocrit 40.4 % (40-54); Hemoglobin 13.4 g/dl (13.0-16.5); Lymphocyte % 7.9 % (19-41); Mean Corp Hgb Conc 33.2 g/gl (32-36); Mean Corpuscular Volume 84.5 fL (80-94); Mean Platelet Vol. 10.1 fl (6.2-12.0); Monocyte% 4.8 % (0-10); Neutrophil # 15.92 X10^3/uL (2.7-7.7); Neutrophil % 84.4 % (47-70); POSITIVE COUNT NO; POSITIVE DIFFERENTIAL NO; POSITIVE MORPHOLOGY NO; Platelet Count 432 K/mm3 (150-450); RBC Distribution Width CV 12.7 % (11.6-14.6); RBC Distribution Width SD 38.7 fl (35.1-43.9); Red Blood Count 4.78 M/mm3 (4.6-6.2); White Blood Count 18.9 K/mm3 (4.4-11.0)
[2017-10-26 09:36] LABS: Anion Gap 7 (5-15); BUN 9 mg/dL (7-18); Calcium,Total 8.8 mg/dL (8.5-10.1); Chloride 101 mmol/L (98-107); EST Glomerular Filtration Rate 104 mL/min (>60); Est Glom Filt Rate - Afr Amer 126 mL/min (>60); Estimated Creatinine Clearance 92.69 ml/min; Glucose 125 mg/dL (74-106); Phosphorus 2.8 mg/dL (2.5-4.9); Potassium 3.7 mmol/L (3.5-5.1); Sodium Level 137 mmol/L (136-145)
[2017-10-26 13:31] LABS: Pathologist Review Reviewed
== END 2017-10-26 10:52 | disposition home or self-care (01) | DRG 417 ==
LOC: PCU 12:42
PROVIDERS: Admitting Provider Surgery; Family Provider Pediatrics; PCP Pediatrics; Visit Provider Surgery
PROC: 0FC98ZZ Extirpation of Matter from Common Bile Duct, Via Natural or Artificial Opening Endoscopic (ICD-10-PCS; CPT 43260; principal; 2017-10-20 09:00)
PROC: 0FT44ZZ Resection of Gallbladder, Percutaneous Endoscopic Approach (ICD-10-PCS; CPT 47610; principal; 2017-10-21 14:10)
DX: K80.63 Calculus of gallbladder and bile duct with acute cholecystitis with obstruction (principal); K85.90 Acute pancreatitis without necrosis or infection, unspecified; Z72.0 Tobacco use
CPT/HCPCS: 36415; 74160; 74177; 74328; 76000; 80048; 80053; 83690; 83735; 84100; 85025; 88304; J7030; J7040; J7120; Q9967; A4216; J2405

== ENCOUNTER 2017-11-01 11:53 | Emergency (ER) | payer BC, SELFPAY ==
[2017-11-01 11:53] VITALS: BP 128/73; PULSE 77; RESP 14; TEMP 37; O2SAT 98; BMI 39.9
--- NOTE | 2017-11-01 12:07 | CT_ITS ---
STUDY: CT ABDOMEN AND PELVIS WITH CONTRAST REASON FOR EXAM: Male, 32 years old. Epigastric pain. Recent pancreatitis. ERCP. Cholecystectomy. RADIATION DOSAGE (If Supplied By Facility): CTDIvol = ( 33.6 ) mGy, DLP = ( 1307.15 ) mGycm TECHNIQUE: Transaxial images were obtained from the dome of the diaphragm to the symphysis pubis with oral contrast. 100mL ml of Isovue 300 contrast was administered. Sagittal and coronal images were reconstructed. Individualized dose optimization techniques were used for this CT. COMPARISON: 10/25/2017. FINDINGS: The visualized lung bases are unremarkable. The visualized portions of the heart are within normal limits. Mild intrahepatic biliary ductal dilatation. Normal liver parenchyma. Postsurgical absence of the gallbladder. Abnormal cluster of hypodensities in the cholecystectomy site. They may be postop changes. There were present previously. Normal spleen. Decreasing edema of the peripancreatic fat. Normal bilateral adrenal glands. Normal right kidney. Normal left kidney. Normal visualized stomach. Normal small intestine. Normal colon. The appendix is visualized and appears normal. Normal abdominal aorta. Normal inferior vena cava. Interval improvement of the minimal thickening of the anterior Gerota's Fascia. No retroperitoneal lymphadenopathy. Normal urinary bladder. Normal abdominal wall. Normal osseous structures. CT/Abdomen/Pelvis W IV Cont ONLY IMPRESSION: 1. Decreasing edema of the peripancreatic fat. 2. A cluster of loculated hypodensities in the cholecystectomy site may represent coalescing postop fluid. 3. Mild intrahepatic biliary ductal dilatation with resolution of pneumobilia when compared to 10/25/2017. Electronically Signed: Tod Garcia MD at 13:34 EDT , Service support ,
--- NOTE | 2017-11-01 12:15 | ED.DCSUM_ITS ---
- ER Visit Summary Date of Service: 11/01/17 Chief Complaint: Abdominal pain History of Present Illness: The patient is a 32 M who was admitted to the hospital October 20 - October 26. He underwent ERCP secondary to pancreatitis and cholecystitis and was found to have a stone in the common bile duct. This was able to be removed with ERCP and patient underwent laparoscopic cholecystectomy the following day. Patient states since his discharge on the second he has been doing well. He has not been requiring his pain medication. This morning he developed rather sudden onset of spasm and cramping pain in the epigastric region. He states he took his pain medication and symptoms resolved after about 30-45 minutes. He did not have nausea or vomiting. Physical Examination: Vital signs are unremarkable. Patient sitting upright in bed no acute distress. Head and neck examination is normal. Heart is regular rate and rhythm. Lung sounds are clear. Abdomen is soft with mild tenderness in the upper abdomen and right lower quadrant. There is no guarding or rebound. Hypoactive bowel sounds are noted throughout. Laparoscopic sites are clean without sign of infection. Test Results: CBC was a white count of 15.9 with 82% neutrophils. This is compared to a white count of 18.9 on October 26 at discharge. Chemistry studies are normal. LFTs reveal direct bili 0.39, alk phos 156, ALT 130, AST 94, lipase 1423. In review of records LFTs and lipase have come back down to normal on October 24. CT scan abdomen and pelvis with IV contrast reveals decreasing edema in the peripancreatic fat. There is a cluster of loculated hypodensities at the cholecystectomy site, may represent coalescing postop fluid. There is mild intrahepatic ductal dilatation with resolution of pneumobilia. Emergency Department Course and Treatment: Patient declined anything for pain while here. He was given IV fluids. On repeat evaluation he declined any recurrent pain. I spoke with Dr. Kohler, on-call for Dr. Raymond. He spoke with Dr. Raymond and then presented to the emergency room to evaluate the patient. Patient is to be discharged home with clear liquid diet. Patient is to call the office tomorrow morning at [address] Raymond wants to see him in the office. He is to be n.p.o. after midnight. Treatment Plan: [] Disposition: Discharge Impression: 1. Abdominal pain with recurrent elevation of LFTs after recent cholecystectomy 2. Mild pancreatitis This note was generated with [employer] dictation software. It may contain incorrect words, spelling, and punctuation that were not noted in review of the chart prior to signing ED Disposition - Plan for ED Patient: Disposition: Home or Assisted Living Chief Complaint: Abd Pain Instructions: ED Abdominal Pain Gallstone Poss Referrals: Sampson Raymond MD [STAFF PHYSICIAN] - 1 Day Additional Instructions: Clear liquid diet at home tonight at home. Do not eat or drink after midnight. Call Dr Raymond's office tomorrow morning - you are to be seen in the office tomorrow.
[2017-11-01] MEDS: 0.9% Normal Saline 1,000 ML 150 ML IV (12:21)
[2017-11-01 12:26] LABS: Absolute Lymphocyte Count 1.48 X10^3/ul (0.83-4.51); Absolute Neutrophil Count 13.1 X10^3/uL (2.0-7.7); Basophil# 0.02 X10^3/uL; Basophil% 0.1 % (0-1); Eosinophils% 1.9 % (0-5); Hematocrit 41.8 % (40-54); Hemoglobin 13.9 g/dl (13.0-16.5); Lymphocyte # 1.48 X10^3/ul (4.0); Lymphocyte % 9.3 % (19-41); Mean Corp Hgb Conc 33.3 g/gl (32-36); Mean Corpuscular Volume 84.3 fL (80-94); Mean Platelet Vol. 9.8 fl (6.2-12.0); Monocyte# 0.93 X10^3/uL; Monocyte% 5.8 % (0-10); Neutrophil # 13.08 X10^3/uL (2.7-7.7); Neutrophil % 82.3 % (47-70); POSITIVE COUNT NO; POSITIVE DIFFERENTIAL NO; POSITIVE MORPHOLOGY NO; Platelet Count 429 K/mm3 (150-450); RBC Distribution Width CV 12.8 % (11.6-14.6); RBC Distribution Width SD 38.8 fl (35.1-43.9); Red Blood Count 4.96 M/mm3 (4.6-6.2); White Blood Count 15.9 K/mm3 (4.4-11.0)
[2017-11-01 12:42] LABS: AST(SGOT) 94 U/L (15-37); Alanine Aminotransfer ALT/SGPT 130 U/L (16-61); Albumin, Serum 3.1 g/dL (3.2-5.0); Alkaline Phosphatase 156 U/L (45-117); Anion Gap 6 (5-15); BUN 10 mg/dL (7-18); BUN/Creat Ratio 10.8 RATIO (10-20); Bilirubin, Direct 0.39 mg/dL (0.00-0.30); Calcium,Total 8.6 mg/dL (8.5-10.1); Chloride 104 mmol/L (98-107); Creatinine, Serum 0.93 mg/dL (0.70-1.30); EST Glomerular Filtration Rate 101 mL/min (>60); Est Glom Filt Rate - Afr Amer 123 mL/min (>60); Globulin 5.1 g/dL (2.2-4.2); Glucose 100 mg/dL (74-106); Lipase 1423 U/L (73-393); Protein, Total 8.2 g/dL (6.4-8.2); Sodium Level 139 mmol/L (136-145)
[2017-11-01 14:00] VITALS: BP 107/74; PULSE 74; RESP 16; O2SAT 99
--- NOTE | 2017-11-01 14:28 | ED.RN ---
dr walton in discussing options with pt and pt hoping to go home
--- NOTE | 2017-11-01 14:47 | ED.DEP ---
ED Disposition - Plan for ED Patient: Disposition: Home or Assisted Living Chief Complaint: Abd Pain Instructions: ED Abdominal Pain Gallstone Poss Referrals: Sampson Raymond MD [STAFF PHYSICIAN] - 1 Day Additional Instructions: Clear liquid diet at home tonight at home. Do not eat or drink after midnight. Call Dr Raymond's office tomorrow morning - you are to be seen in the office tomorrow.
--- NOTE | 2017-11-01 15:12 | PCM.PN.BLA ---
Progress Note Brief note I have spoken to Dr. Melody Cottrell and to Dr. Sampson Raymond 32-year-old gentleman. He developed acute onset of epigastric pain earlier today. After taking OxyContin without relief presented to the ER. Claims this pain was very similar to that which he had prior to his recent ERCP with stone extraction and laparoscopic fenestrated cholecystectomy. The patient developed acute pancreatitis status post ERCP. He was making steady progress and feeling improved. This was an acute onset of pain. The patient currently states that he is back to his generalized postoperative soreness and that the acute pain has abated. I have reviewed his laboratory and his CT scan. The most likely etiology is a small stone fragment or stone that has caused some brief recurrent gallstone pancreatitis. The patient however appears very stable. It is of note that last night he grilled out having a cheeseburger. His pertinent physical exam notes that he is alert does not appear to be in any distress his abdomen has bowel sounds present though slightly diminished his incisions are very clean and dry in particular the umbilical incision appears absolutely unremarkable. He is appropriately tender to palpation in the epigastric and right upper quadrant. Some slight guarding no rebound. The patient appears to be stable. He is very much interested in not being readmitted at this time. I believe that it is safe to allow him to return home on a strict no fat clear liquid diet tonight. He is to remain n.p.o. after midnight and he is to contact our office tomorrow morning at 730 to arrange for an appointment with Dr Raymodn. We will want to repeat laboratory tomorrow as well. He has had an opportunity to ask and have questions answered. He is very comfortable with this approach. Addy Kohler M.D., F.A.C.S.
== END 2017-11-01 15:06 | disposition home or self-care (01) ==
PROVIDERS: Emergency Provider Emergency Medicine; Family Provider Pediatrics; PCP Pediatrics
DX: K85.90 Acute pancreatitis without necrosis or infection, unspecified (principal); R79.89 Other specified abnormal findings of blood chemistry; Z79.899 Other long term (current) drug therapy; Z87.19 Personal history of other diseases of the digestive system; Z87.891 Personal history of nicotine dependence; Z90.49 Acquired absence of other specified parts of digestive tract
CPT/HCPCS: 74177; 80048; 80076; 83690; 85025; 96360; 96361; 99284; J7030; Q9967

== ENCOUNTER → 2017-11-02 08:54 | Outpatient (CLI) | payer BC, SELFPAY | PROVIDERS: Family Provider Pediatrics; PCP Pediatrics; Visit Provider Surgery | DX: K85.10 Biliary acute pancreatitis without necrosis or infection (principal) | CPT/HCPCS: 36415; 80053; 83690; 85027; J2405 ==

== ENCOUNTER 2017-11-02 12:42 | Observation (INO) | payer BC, SELFPAY ==
[2017-11-02] VITALS (9 sets, daily range): BP systolic 108–142; BP diastolic 65–94; PULSE 79–119; RESP 14–18; TEMP 36.6–37.8; O2SAT 93–100; BMI 39.6
[2017-11-02 09:13] LABS: Hematocrit 42.3 % (40-54); Hemoglobin 14.4 g/dl (13.0-16.5); Mean Corpuscular Hgb 28.3 pg (27.0-32.0); Mean Corpuscular Volume 83.1 fL (80-94); Platelet Count 512 K/mm3 (150-450); RBC Distribution Width CV 12.7 % (11.6-14.6); RBC Distribution Width SD 38.4 fl (35.1-43.9); Red Blood Count 5.09 M/mm3 (4.6-6.2)
[2017-11-02 09:15] LABS: Scan Indicated on CBC? Y/N NO
[2017-11-02 09:38] LABS: ALB/GLOB Ratio 0.6 RATIO (0.9-2.4); AST(SGOT) 419 U/L (15-37); Alanine Aminotransfer ALT/SGPT 559 U/L (16-61); Albumin, Serum 3.1 g/dL (3.2-5.0); Alkaline Phosphatase 328 U/L (45-117); Anion Gap 5 (5-15); BUN 7 mg/dL (7-18); BUN/Creat Ratio 6.5 RATIO (10-20); Calcium,Total 8.8 mg/dL (8.5-10.1); Chloride 100 mmol/L (98-107); Creatinine, Serum 1.07 mg/dL (0.70-1.30); EST Glomerular Filtration Rate 86 mL/min (>60); Est Glom Filt Rate - Afr Amer 104 mL/min (>60); Globulin 5.1 g/dL (2.2-4.2); Glucose 111 mg/dL (74-106); Lipase 701 U/L (73-393); Protein, Total 8.2 g/dL (6.4-8.2); Sodium Level 136 mmol/L (136-145)
--- NOTE | 2017-11-02 11:25 | RAD_ITS ---
STUDY: ERCP. REASON FOR EXAM: Male, 32 years old. Choledocholithiasis. FLUOROSCOPY TIME (if supplied): (5:11) minutes/seconds TECHNIQUE: An ERCP was performed by the surgeon. Imaging was submitted. COMPARISON: Comparison is made with prior study dated October 20, 2017. FINDINGS: Mild dilatation of the common bile duct. A guidewire is seen in the common bile duct. Balloon catheter. A biliary stent was then placed. RAD/ERCP Biliary/Pancreas IMPRESSION: Stone removal and stent placement within the common bile duct. Electronically Signed: Raphael Sellers MD at 8:15 EDT Tel [phone], Service support ,
[2017-11-02] MEDS: 0.9% Normal Saline 1,000 ML 999 ML IV (12:41)
--- NOTE | 2017-11-02 13:05 | OP.PCM_ITS ---
Problem List (1) Choledocholithiasis with obstruction Status: Acute Qualifiers: Cholangitis presence: without cholangitis Qualified Code(s): K80.51 - Calculus of bile duct without cholangitis or cholecystitis with obstruction Report of Operation Date of Procedure: 11/02/17 Pre-Operative Diagnosis: Obstructive jaundice Post-Operative Diagnosis: Choledocholithiasis with obstruction Surgery/Procedure Performed:: ERCP with stone removal and stent placement Description of Procedure: The patient was brought to the operating room and general anesthesia was induced. The patient was placed in a semi-prone position and the side-viewing endoscope was placed into the mouth and down into the stomach and duodenum. The ampulla was identified. There is no bile coming from the ampulla and there is no bile in the duodenum. The sphincterotome was placed into the common bile duct and this was confirmed with fluoroscopy. An obstructing stone was in the mid common bile duct. The guidewire was placed past the stone and into the proximal hepatic ducts and the sphincterotome was removed and a 12 x 15 mm balloon was placed into the common bile duct. A cholangiogram was performed and the balloon was unable to remove the stone. The balloon was removed and a trapezoid basket was placed into the common bile duct. I was able to crush the stone and remove it in fragments. The cystic duct did opacify as well as the gallbladder remnant. There is no evidence of bile leak. Once the stone was removed the balloon was placed back into the common bile duct and several sweeps were performed and more fragments of stone were removed. Once there were more than 2 subsequent sweeps with no fragments removed a 10 Amharic by 7 cm stent was placed in the common bile duct and deployed. There was good flow of bile through the stent to the end of the case. The scope and guidewire removed the patient tolerated the procedure well and was brought to PACU in stable condition.
[2017-11-02] MEDS: 0.9% NaCl Peripheral Flush Adult/Peds IV (17:17)
[2017-11-02] MEDS: 0.9% Normal Saline 1,000 ML 100 ML IV (17:17)
[2017-11-02] MEDS: Docusate Sodium 100 MG Capsule PO (21:13)
[2017-11-03 02:50] VITALS: BP 108/66; PULSE 76; RESP 16; TEMP 37; O2SAT 95
[2017-11-03] MEDS: 0.9% Normal Saline 1,000 ML 100 ML IV (06:07)
--- NOTE | 2017-11-03 07:51 | DCINST_ITS ---
Discharge Diet: Low fat/ Low Cholesterol Discharge Activity: Return to Normal Activity, May Shower Call your doctor if your incision/area has: Increased Pain/ Swelling Call your doctor if you observe: Fever of 101 or Higher, Uncontrolled pain Allergies/Adverse Reactions: Allergies No Known Allergies Allergy (Verified 11/02/17 09:26) Medications to take at Discharge Esomeprazole Mag Trihydrate [Nexium] 40 mg PO DAILY 10/14/17 Docusate Sodium [Colace] 100 mg PO BID #20 cap 10/26/17 Oxycodone [Oxyir] 5 - 10 mg PO Q4H PRN PRN 7 Days #40 tab 10/26/17 Primary Care Physician: Kristin Diaz [Primary Care Provider] - Test Results: Test results from this visit will be discussed in further detail at your follow- up appointment, if applicable.
--- NOTE | 2017-11-03 07:51 | PCM.DC.SUM ---
Discharge Date and Diagnosis Date of Admission: 11/02/17 Date of Discharge: 11/03/17 - Primary Discharge Diagnosis Complete List of Medical Problems (Last Reviewed 11/02/17 @ 09:24 by Rosemarie Dowd) Acute pancreatitis due to calculus of common bile duct (Acute) Choledocholithiasis with obstruction (Acute) Acute cholecystitis (Acute) Hospital Course and Treatment Imaging Results: Clinical Impression(s) from Imaging Studies Endo Retro Cholangiopancreatogram 11/02/17 11:25 IMPRESSION: Stone removal and stent placement within the common bile duct. Electronically Signed: Raphael Sellers MD at 8:15 EDT Tel [phone], Service support , Operations: ERCP Procedures: None Summary of Care Provided: The patient is a 32 year old M who presented to the emergency room Thursday evening with abdominal pain. At this time his LFTs were normal and he was asked to follow-up in the office. He followed up in the office and repeat labs showed a significant increase in his LFTs. He was immediately taken for ERCP during which an impacted common bile duct stone was encountered. This is likely the stone that was impacted in his cystic duct during his surgery and was unable to be removed. A likely migrated into his common bile duct and causing obstruction. The stone was removed and a stent was placed. The patient was observed overnight and the following morning he was tolerating a regular diet with no abdominal pain and he was discharged home in stable condition. Discharge Diet: Low fat/ Low Cholesterol Discharge Activity: Return to Normal Activity, May Shower Call your doctor if your incision/area has: Increased Pain/ Swelling Call your doctor if you observe: Fever of 101 or Higher, Uncontrolled pain Home Medications: Medications to take at Discharge Esomeprazole Mag Trihydrate [Nexium] 40 mg PO DAILY 10/14/17 Docusate Sodium [Colace] 100 mg PO BID #20 cap 10/26/17 Oxycodone [Oxyir] 5 - 10 mg PO Q4H PRN PRN 7 Days #40 tab 10/26/17 Primary Care Physician: Kristin Diaz [Primary Care Provider] - Medical Necessity - Tobacco Use Smoking Status: Former smoker Meaningful Use Info Meaningful Use Diagnoses (Choose all that apply): None applicable
[2017-11-03 08:10] VITALS: BP 119/70; PULSE 80; RESP 18; TEMP 37.2; O2SAT 95
== END 2017-11-03 09:19 | disposition home or self-care (01) ==
LOC: MS2 11-04 08:16 → SDC 11-04 08:16
PROVIDERS: Admitting Provider Surgery; Family Provider Pediatrics; PCP Pediatrics; Visit Provider Surgery
PROC: (CPT 43260; principal; 2017-11-02 11:00)
DX: K80.50 Calculus of bile duct without cholangitis or cholecystitis without obstruction (principal); K85.10 Biliary acute pancreatitis without necrosis or infection; Z87.891 Personal history of nicotine dependence
CPT/HCPCS: 43264; 43274; 36415; 74330; 76000; 80053; 83690; 85027; 96360; 96361; 99218; J7030; J7120; A4216; G0378; G0379; J2405

== ENCOUNTER 2018-01-06 12:19 | Day surgery (SDC) | payer BC, SELFPAY ==
[2018-01-06 12:35] VITALS: BP 135/70; PULSE 58; RESP 16; TEMP 36.2; O2SAT 97; BMI 41.0
--- NOTE | 2018-01-06 13:15 | HP.PCM_ITS ---
Problem List (1) Choledocholithiasis with obstruction Status: Acute Qualifiers: Cholecystitis presence: with cholecystitis Cholecystitis acuity: acute Qualified Code(s): K80.43 - Calculus of bile duct with acute cholecystitis with obstruction History of Present Illness Date of Admission: 01/06/18 The patient is a 32 year old M who had acute cholecystitis and choledocholithiasis in the past. He had an ERCP on November 02 with stent placement and he is here for stent removal today. He is having no abdominal pain or nausea or vomiting. Past Medical History Medical History: Medical History (Last Reviewed 11/16/17 @ 14:51 by Rosemarie Dowd) Acute pancreatitis due to calculus of common bile duct (Acute) K85.10 Choledocholithiasis with obstruction (Acute) K80.51 Acute cholecystitis (Acute) K81.0 Allergies No Known Allergies Allergy (Verified 01/04/18 10:57) Home Medications: Ambulatory Orders Medication Instructions Recorded Esomeprazole Mag Trihydrate 40 mg PO DAILY 10/14/17 [Nexium] Surgical History: Surgical History (Last Reviewed 11/16/17 @ 14:51 by Rosemarie Dowd) S/P ERCP Z98.890 S/P hernia repair Z98.890, Z87.19 S/P laparoscopic cholecystectomy Z90.49 Surgical History: cholecystectomy, herniorrhaphy - Umbilical hernia repair without mesh, - - ercp Smoking Status: Former smoker - *Family History Paternal History Items: - Review of Systems Constitutional: Denies: Anorexia, Chills, Fever Cardiovascular: Denies: Chest Pain Respiratory: Denies: Cough, Shortness of Breath Gastrointestinal: Denies: Abdominal Pain, Nausea, Vomiting Genitourinary: Denies: Dysuria Musculoskeletal: Denies: Joint Tenderness Skin: Denies: Dryness Neurological: Denies: Headaches Psychiatric: Denies: Anxiety, Depression Hematologic/ Lymphatic: Denies: Anemia VTE Information - Inpt Only VTE Present on Admission: No VTE Mechan Device Prophylaxis: SCD's - Physical Exam General: Alert, Oriented x3, Cooperative HEENT: Atraumatic Lungs: Normal air movement Cardiovascular: Regular rate, Regular Rhythm Abdomen: Soft, Non Tender, Non-Distended Vital Signs Temp Pulse Resp BP Pulse Ox 97.1 F L 58 L 16 135/70 H 97 01/06/18 12:35 01/06/18 12:35 01/06/18 12:35 01/06/18 12:35 01/06/18 12:35 Oxygen Delivery Method Room Air Weight: 224 lb 3.362 oz Body Mass Index (BMI) 41.0 Assessment/Plan All Active Problems (Last Reviewed 11/16/17 @ 14:51 by Rosemarie Dowd) Acute pancreatitis due to calculus of common bile duct (Acute) Choledocholithiasis with obstruction (Acute) Acute cholecystitis (Acute) 32-year-old male with choledocholithiasis 1. Patient is here for ERCP with stent removal. He is having no issues at this time. I discussed the risks of the procedure and he understands all the risks and is willing to proceed. 2. I explained endoscopy in detail to the patient. I explained the risks including but not limited to stroke or heart attack with anesthesia, perforation of the GI tract, bleeding, infection and pancreatitis. I explained that any of these could necessitate further emergency surgery. The patient understands and all questions were answered sufficiently. The patient wishes to proceed with procedure. Sampson Raymond MD Pager: [facility] [address] [place] [address], [address] [place] [address] Office:
--- NOTE | 2018-01-06 13:45 | RAD_ITS ---
Fluoroscopic guided ERCP and stent removal INDICATION: Retained common duct stone TECHNIQUE: 2 fluoroscopic guided images were obtained during ERCP and endoscopic stent removal. Recommend correlation with procedural notes for more complete information RAD/ERCP Biliary Only IMPRESSION: Fluoroscopic guided ERCP and stent removal Electronically Signed: Stanley Arredondo MD at 23:32 EDT , Service support ,
--- NOTE | 2018-01-06 13:59 | PCM.OPRPT ---
Problem List (1) Choledocholithiasis with obstruction Status: Acute Qualifiers: Cholecystitis presence: with cholecystitis Cholecystitis acuity: acute Qualified Code(s): K80.43 - Calculus of bile duct with acute cholecystitis with obstruction Report of Operation Date of Procedure: 01/06/18 Pre-Operative Diagnosis: History of biliary stent placement Post-Operative Diagnosis: Same Surgery/Procedure Performed:: ERCP with stent removal Description of Procedure: After describing the risks of the procedure as well as the procedure in detail informed consent was obtained. Patient was brought to the operating room and general anesthesia was induced. The patient was then placed in a semi-prone position. Next, the side-viewing endoscope was placed into the mouth and down into the stomach and advanced into the duodenum. The ampulla was located. The stent was removed with a snare through the mouth. The scope was replaced back into the duodenum and the common bile duct was cannulated with a 9 x 15 balloon. The guidewire was placed in the proximal hepatic duct and several balloon sweeps were performed. No remaining stones were identified. The balloon and wire were removed from the common bile duct and there was good flow of bile. The side-viewing scope was then withdrawn back into the stomach and the stomach was suctioned. Next, the scope was removed. The patient was taken to PACU in stable condition. The patient tolerated the procedure well.
--- NOTE | 2018-01-06 14:02 | DCINST_ITS ---
Discharge Diet: Light diet - advance as tolerated Discharge Activity: Return to Normal Activity, - - Do not drive, work heavy equipment or sign legal documents for 24 hours. Weight Bearing Status: Weight bearing as tolerated Call your doctor if you observe: Fever of 101 or Higher, - - Nausea, vomitting Allergies/Adverse Reactions: Allergies No Known Allergies Allergy (Verified 01/04/18 10:57) Medications to take at Discharge Esomeprazole Mag Trihydrate [Nexium] 40 mg PO DAILY 10/14/17 Primary Care Physician: Kristin Diaz [Primary Care Provider] - Test Results: Test results from this visit will be discussed in further detail at your follow- up appointment, if applicable. Please Follow Up With: Sampson Raymond MD When: follow up as needed if there are any issues
[2018-01-06 14:07] VITALS: BP 135/70; BP 144/92; PULSE 94; RESP 16; TEMP 36.3; O2SAT 94
[2018-01-06 14:21] VITALS: BP 135/70; BP 163/106; PULSE 89; RESP 16; O2SAT 93
[2018-01-06 14:22] VITALS: BP 135/70; BP 87/70; PULSE 68; RESP 16; O2SAT 95
[2018-01-06 14:24] VITALS: BP 115/81; BP 135/70; PULSE 84; RESP 16; TEMP 36.5; O2SAT 95
[2018-01-06 14:55] VITALS: BP 135/70
== END 2018-01-06 15:02 | disposition home or self-care (01) ==
LOC: EN 12:20 → AC 12:21
PROVIDERS: Family Provider Pediatrics; PCP Pediatrics; Visit Provider Surgery
PROC: (CPT 43260; principal; 2018-01-06 13:00)
DX: K80.43 Calculus of bile duct with acute cholecystitis with obstruction (principal); K21.9 Gastro-esophageal reflux disease without esophagitis; G47.30 Sleep apnea, unspecified; Z79.899 Other long term (current) drug therapy; Z87.891 Personal history of nicotine dependence
CPT/HCPCS: 43275; 74328; 76000; J2405

== ENCOUNTER 2019-11-14 07:15 | Emergency (ER) | payer BC, SELFPAY ==
[2019-11-14 07:16] VITALS: BP 149/86; PULSE 83; RESP 16; TEMP 36.3; O2SAT 97; BMI 38.4
[2019-11-14 08:06] LABS: Hematocrit 51.5 % (40-54); Hemoglobin 17.2 g/dL (13.0-16.5); Mean Corp Hgb Conc 33.4 g/dL (32-36); Mean Corpuscular Hgb 28.5 pg (27.0-32.0); Mean Corpuscular Volume 85.3 fL (80-94); Mean Platelet Vol. 10.1 fl (6.2-12.0); Platelet Count 273 K/mm3 (150-450); RBC Distribution Width CV 12.9 % (11.6-14.6); RBC Distribution Width SD 40.1 fl (35.1-43.9); Red Blood Count 6.04 M/mm3 (4.6-6.2); White Blood Count 9.5 K/mm3 (4.4-11.0)
--- NOTE | 2019-11-14 08:07 | ED.VISSUMM ---
- ER Visit Summary Date of Service: 11/14/19 Chief Complaint: Blood in stool History of Present Illness: The patient is a [address] Peralta. He reports that for the past 2 weeks he has blood on the tissue when he wipes after having a bowel movement. He reports he is having 1-2 bowel movements per day. He denies any diarrhea. Does report that he has a burning perianal pain. He is never had anything like this before. He denies any family history of Crohn's or ulcerative colitis. Physical Examination: Vitals: Stable. Afebrile. General: Well-nourished and well-developed. Head: Normocephalic atraumatic. Neck: Supple, no lymphadenopathy. No JVD. Nontender. Cardiovascular: Regular rate and rhythm. No murmurs. Respiratory: No respiratory distress. Clear to auscultation bilaterally. Abdominal: Soft, nontender, nondistended, normal bowel sounds. No guarding, rebound, or peritoneal signs. Rectal: No visualized source for bleeding. No hemorrhoids or anal fissure. There is approximately 8 cm of surrounding erythema and irritation. Back: Nontender. Extremities: Nontender, no edema. Skin: Normal color, no rash. Neurologic: Alert and oriented ?3. Cranial nerves II through XII are intact. Normal strength and sensation. Psych: Normal affect. Test Results: CBC shows a hemoglobin of 17.2. Chem-7 shows a potassium 3.2, chloride 109, glucose of 118, calcium 8.0. Emergency Department Course and Treatment: Patient is resting comfortably without complaint. Treatment Plan: Patient will be discharged with a steroid/antifungal cream to place perianally. Instructed to follow-up with his primary care physician 1 week for another exam. Return to the emergency department for any worsening symptoms. Disposition: To home in improved and stable condition. Impression: 1. Stable lower GI bleed. 2. Perianal rash. This note was generated with [employer] dictation software. It may contain incorrect words, spelling, and punctuation that were not noted in review of the chart prior to signing ED Disposition - Plan for ED Patient: Instructions: ED Hematochezia Stable Prescriptions: Nystatin/Triamcin Cream [Mycolog] 1 applic TOPICAL BID #1 tube Referrals: Bianka Arora MD [Primary Care Provider] - 1 Week
[2019-11-14 08:11] LABS: Anion Gap 7 (5-15); BUN 9 mg/dL (7-18); BUN/Creat Ratio 8.3 RATIO (10-20); Chloride 109 mmol/L (98-107); Creatinine, Serum 1.08 mg/dL (0.70-1.30); EST Glomerular Filtration Rate 84 mL/min (>60); Est Glom Filt Rate - Afr Amer 101 mL/min (>60); Estimated Creatinine Clearance 75.83 ml/min; Glucose 119 mg/dL (74-106); Potassium 3.2 mmol/L (3.5-5.1); Sodium Level 139 mmol/L (136-145)
[2019-11-14 08:36] LABS: Partial Thromboplast Time 26.4 Seconds (24.1-36.2); Prothrombin Time (Protime)PT. 12.4 SECONDS (11.7-14.9)
== END 2019-11-14 08:54 | disposition home or self-care (01) ==
LOC: ED 07:59
PROVIDERS: Emergency Provider Emergency Medicine; PCP Internal Medicine
DX: K92.1 Melena (principal); R21 Rash and other nonspecific skin eruption; Z72.0 Tobacco use; Z79.899 Other long term (current) drug therapy
CPT/HCPCS: 80048; 85027; 85610; 85730; 99282

== ENCOUNTER 2022-09-17 20:49 | Inpatient (IN) | payer BC, SELFPAY ==
--- NOTE | 2022-09-17 00:50 | RAD_ITS ---
EXAM: XR ABDOMEN, 1 VIEW CLINICAL INDICATION: ng tube -- KUB with both diaphragms for NG/OG Verification TECHNIQUE: Frontal supine view of the abdomen/pelvis. COMPARISON: Abdomen and pelvic CT of 09/17/2022. FINDINGS: LOWER THORAX: No acute pathology. GASTROINTESTINAL TRACT: A moderate amount of gas is noted within the gastric fundus. Numerous gas-filled small bowel loops are noted within the upper abdomen, measuring up to 4 cm in diameter. ORGANS: Excreted contrast noted within the intrarenal collecting systems, without hydronephrosis. No organomegaly. No abnormal calcifications. BONES/JOINTS: No acute pathology. SOFT TISSUES: No acute pathology. TUBES, LINES AND DEVICES: NG tube has been inserted and extends into the stomach, with its tip and sidehole projected within the gastric body. RAD/Abdomen Single View (Portable) IMPRESSION: Satisfactory NG tube positioning. Electronically Signed: Brian Gamez MD at 1:21 EDT ,
[2022-09-17 20:50] VITALS: BP 146/88; PULSE 73; RESP 18; TEMP 36.7; O2SAT 98; BMI 41.5
[2022-09-17 21:03] LABS: Mucous, Urine 0 SEEN /hpf (<or=2+); Red Blood Cells-Urine 0 SEEN /hpf (0-5); Squamous Epithelial Cells - UA 0 SEEN /hpf (0-5)
[2022-09-17 21:04] LABS: Color, Urine Yellow (Yellow); Glucose, Dipstick Normal (Normal); Ketone-Dipstick 5 mg/dl (Negative); Leukocyte Esterase-Dipstick Negative /ul (Negative); Nitrite-Dipstick Negative (Negative); Occult Blood-Urine 10 /ul (Negative); Protein-Dipstick 30 mg/dl (Negative); Specific Gravity, Urine 1.025 (1.002-1.030); Urine Clarity Clear (Clear); Urine Urobilinogen 1 mg/dl (Normal)
[2022-09-17 21:16] LABS: Urine Bilirubin Dipstick 1 mg/dL (Negative)
[2022-09-17 21:17] LABS: Bacteria 1+ /hpf (None Seen); White Blood Cells 0-5 SEEN /hpf (0-5)
[2022-09-17 21:20] LABS: Absolute Lymphocyte Count 1.26 X10^3/uL (0.83-4.51); Absolute Neutrophil Count 18.3 X10^3/uL (2.0-7.7); Basophil# 0.06 X10^3/uL; Basophil% 0.3 % (0-1); Eosinophil# 0.05 X10^3/uL; Eosinophils% 0.2 % (0-5); Hemoglobin 17.4 g/dL (13.0-16.5); Lymphocyte # 1.26 X10^3/ul (0.83-4.51); Lymphocyte % 6.2 % (19-41); Mean Corp Hgb Conc 33.5 g/dL (32-36); Mean Corpuscular Hgb 28.1 pg (27.0-32.0); Mean Platelet Vol. 9.9 fl (6.2-12.0); Monocyte# 0.61 X10^3/uL; NRBC Flagged by Analyzer 0 % (0-5); Neutrophil # 18.33 X10^3/uL (2.7-7.7); Platelet Count 411 K/mm3 (150-450); RBC Distribution Width SD 39.8 fl (35.1-43.9); Red Blood Count 6.19 M/mm3 (4.6-6.2); White Blood Count 20.4 K/mm3 (4.4-11.0)
--- NOTE | 2022-09-17 21:42 | CT_ITS ---
We are attempting to reach an attending provider to discuss findings. An addendum with communication details will be sent when the communication is complete. EXAM: CT ABDOMEN AND PELVIS WITH INTRAVENOUS CONTRAST CLINICAL INDICATION: abd pain -- IV PO Contrast TECHNIQUE: Helically acquired images were obtained of the abdomen and pelvis with intravenous contrast. This CT exam was performed using one or more of the following dose reduction techniques: automated exposure control, adjustment of the mA and/or kV according to patient size, and/or use of iterative reconstruction technique. CONTRAST: Oral and amp; IV Gastrografin and amp; 100mL Isovue-370 RADIATION DOSE: Total DLP: 1354.27 mGy-cm. COMPARISON: CT of 11/01/2017. FINDINGS: LOWER THORAX: Minimal dependent atelectasis at the lung bases, right greater than left. No pleural effusion. No coronary artery calcification is visualized. No significant pericardial effusion. ABDOMEN: LIVER: Homogeneous. No focal mass. Portal veins enhance normally. Minimal chronic intrahepatic biliary ductal dilatation. GALLBLADDER AND BILE DUCTS: Gallbladder is again noted be absent; cystic duct remnant protrudes into the gallbladder fossa. Common bile duct is normal in caliber. Mild pneumobilia is present consistent with prior sphincterotomy. The amount of pneumobilia has mildly increased since the prior study. No calcified common duct stone. PANCREAS: Unremarkable pancreas. The previously noted peripancreatic stranding has resolved. No focal cystic or solid mass. SPLEEN: Unremarkable. Normal size without focal cystic or solid mass. ADRENALS: Unremarkable. No nodules. KIDNEYS AND URETERS: Unremarkable. Normal renal size and position. No hydronephrosis. STOMACH AND BOWEL: The stomach is filled with a moderate amount of contrast and gas. All of the gastric antrum near the pylorus is slightly thickened. No periduodenal inflammatory changes. Air-fluid levels are noted within numerous small bowel loops within the right side of the abdomen and upper pelvis; the small bowel loops measure up to 3.9 cm in transverse diameter. The distal small bowel is decompressed, with a zone of transition within the central aspect of the pelvis just to the right of midline as noted on axial images 89-92, where the small bowel makes an abrupt turn suggestive of an adhesion. Air-fluid levels are scattered within the colon which is normal in caliber. Colonic diverticulosis is present without evidence for acute diverticulitis. Dilute contrast is noted within the distal colon. No twisting of the small bowel mesentery. PELVIS: APPENDIX: Normal. No evidence of acute appendicitis. BLADDER: Partially distended urinary bladder is unremarkable. REPRODUCTIVE: Unremarkable as visualized. No mass. ABDOMEN and PELVIS: INTRAPERITONEAL SPACE: Unremarkable. No ascites or other fluid collection. No free air. BONES/JOINTS: Mild lumbar facet arthritis. Bridging osteophytes about the anterior aspect of the right SI joint. No acute osseous abnormality. No suspicious lytic or blastic abnormality. SOFT TISSUES: Unremarkable. No discrete abdominal or pelvic wall hernia. VASCULATURE: Unremarkable. Abdominal aorta is non-dilated. LYMPH NODES: Scattered small nonspecific mesenteric lymph nodes are present. No para-aortic adenopathy. OTHER FINDINGS: Right paracentral disc protrusion again noted at L4/5, more calcified than on the prior study. CT/Abdomen/Pelvis WITH Contrast IMPRESSION: 1. Findings of an incomplete distal small bowel obstruction, with zone of transition within the central pelvis to the right of midline. 2. Colonic diverticulosis without evidence for acute diverticulitis. 3. Interval resolution of the previously noted findings of pancreatitis. 4. Normal appendix. 5. Slight thickening of the wall of the gastric antrum suggesting a minimal gastritis. Nonstandard communication protocol initiated. Electronically Signed: Brian Gamez MD at 0:05 EDT ,
--- NOTE | 2022-09-17 21:43 | EDS_ITS ---
HPI History of Present Illness Chief Complaint: Abd Pain Informant: patient Onset/Context/Timing Onset: Today Context: Gradual Onset Timing: Waxes and wanes Current Severity: Moderate Maximum Severity: Moderate Narrative Narrative: Patient presents with nausea, vomiting, and diarrhea today along with mid to upper abdominal pain. He has not noted a fever. He has a history of prior cholecystectomy and pancreatitis. [facility] Medical History Acute cholecystitis Acute pancreatitis due to calculus of common bile duct Choledocholithiasis with obstruction Home Medications esomeprazole magnesium 40 mg capsule,delayed release 40 mg PO DAILY 10/14/17 [History Last Taken 10/19/17 22:00] nystatin-triamcinolone 100,000 unit/g-0.1 % topical cream 1 applic topical BID #1 tube 11/14/19 [Rx Last Taken Unknown] Allergy/AdvReac Type Severity Reaction Status Date / Time No Known Allergies Allergy Verified 09/17/22 20:52 Surgical History S/P ERCP S/P hernia repair S/P laparoscopic cholecystectomy Social History Smoking Status: Current every day smoker tobacco type: smokeless tobacco alcohol intake: current alcohol intake frequency: holidays/special occasions only ROS ROS ED Constitutional Constitutional ED: Denies chills or fever(s) Eyes Eyes: Denies change in vision or discharge from eye(s) ENT ENT ED: Denies discharge from eye(s), rhinorrhea or sore throat Cardiovascular Cardiovascular: Denies chest pain or palpitations Respiratory/Chest Respiratory/Chest: Denies cough or dyspnea Gastrointestinal Gastrointestinal: Reports abdominal pain, diarrhea, nausea and vomiting Genitourinary Genitourinary ED: Denies dysuria Musculoskeletal Musculoskeletal: Denies back pain or extremity pain Integumentary Denies Abrasions or rash Neurologic Neurologic: Denies headache(s) or weakness Psychiatric Psychiatric: Denies anxiety or depression Allergic/Immunologic Allergic/Immunologic ED: Denies lip swelling or urticaria EXAM Physical Exam Const Vital Signs: 09/17/22 20:50 Temperature 98.1 F Temperature Source Temporal Pulse Rate 73 Respiratory Rate 18 Blood Pressure 146/88 H Blood Pressure Mean 107 Pulse Ox 98 Oxygen Delivery Method Room Air Positive well nourished and well developed General Appearance ED: well developed HEENT Reports normocephalic and head/scalp atraumatic Eyes PERRL and EOMs intact bilaterally Neck supple Chest Wall inspection of chest normal and palpation of chest normal Resp normal respiratory effort and clear to auscultation bilaterally Cardio regular rate and regular rhythm GI GI Narrative: Mid upper abdominal tenderness to palpation. No palpable masses. No guarding or rebound. Hypoactive bowel sounds noted. Palpation: soft Extremity normal to inspection Neuro oriented x3 and no sensory deficits noted Sensorium / Orientation: alert Motor Exam: strength 5/5 throughout Psych mental status grossly normal Skin no rashes or lesions noted MDM MDM MDM Narrative Medical decision making narrative: Patient was given morphine and Zofran for pain along with IV fluids. Labwork obtained to evaluate for leukocytosis, anemia, and electrolyte derangement. Urinalysis obtained to evaluate for infection/hematuria. CT scan of the abdomen pelvis obtained to evaluate for acute abnormality. Lab Data Attestation: I reviewed the patient's lab results. Labs: Laboratory Results - last 24 hr 09/17/22 09/17/22 09/17/22 20:58 21:14 21:14 WBC 20.4 H RBC 6.19 Hgb 17.4 H Hct 52.0 MCV 84.0 MCH 28.1 MCHC 33.5 RDW Std Deviation 39.8 RDW Coeff of [place] 13.0 Plt Count 411 MPV 9.9 Immature Gran % (Auto) 0.300 Neut % (Auto) 90.0 H Lymph % (Auto) 6.2 L [place] % (Auto) 3.0 Eos % (Auto) 0.2 Baso % (Auto) 0.3 Absolute Neuts (auto) 18.3 H Absolute Lymphs (auto) 1.26 Nucleated RBC % 0 Sodium 138 Potassium 3.8 Chloride 110 H Carbon Dioxide 18.0 L Anion Gap 10 BUN 10 Creatinine 1.28 Estim Creat Clear Calc 62.21 Est GFR (MDRD) Af Amer 82 Est GFR (MDRD) Non-Af 68 BUN/Creatinine Ratio 7.8 L Glucose 142 H Calcium 9.3 Total Bilirubin 0.70 AST 30 ALT 47 Alkaline Phosphatase 146 H Total Protein 8.6 H Albumin 4.0 Globulin 4.6 H Albumin/Globulin Ratio 0.9 Lipase Urine Color Yellow Urine Clarity Clear Urine pH 5.0 Ur Specific [place] 1.025 Urine Protein 30 H Urine Glucose (UA) Normal Urine Ketones 5 H Urine Occult Blood 10 H Urine Nitrite Negative Urine Bilirubin 1 H Urine Urobilinogen 1 H Ur Leukocyte Esterase Negative Urine RBC 0 SEEN Urine WBC 0-5 SEEN Ur Squamous Epith Cells 0 SEEN Urine Bacteria 1+ Urine Mucus 0 SEEN 09/17/22 21:14 WBC RBC Hgb Hct MCV MCH MCHC RDW Std Deviation RDW Coeff of [place]anes[place] Plt Count MPV Immature Gran % (Auto) Neut % (Auto) Lymph % (Auto) [place] % (Auto) Eos % (Auto) Baso % (Auto) Absolute Neuts (auto) Absolute Lymphs (auto) Nucleated RBC % Sodium Potassium Chloride Carbon Dioxide Anion Gap BUN Creatinine Estim Creat Clear Calc Est GFR (MDRD) Af Amer Est GFR (MDRD) Non-Af BUN/Creatinine Ratio Glucose Calcium Total Bilirubin AST ALT Alkaline Phosphatase Total Protein Albumin Globulin Albumin/Globulin Ratio Lipase 37 Urine Color Urine Clarity Urine pH Ur Specific [place] Urine Protein Urine Glucose (UA) Urine Ketones Urine Occult Blood Urine Nitrite Urine Bilirubin Urine Urobilinogen Ur Leukocyte Esterase Urine RBC Urine WBC Ur Squamous Epith Cells Urine Bacteria Urine Mucus Treatment and Re-Evaluation :: CBC was a white count of 20.4 with 90% neutrophils. Hemoglobin is concentrated at 17.4. Chemistry studies reveal a bicarb of 18. Creatinine is 1.28. Glucose is 142. Alk phos is 146. Total bilirubin is normal at 0.7. Urinalysis reveals 1+ bacteria with 0-5 white cells and no nitrites. Lipase is normal at 37. At this time patient is resting comfortably. We are awaiting CT scan. Patient will be signed out to oncoming physician for reeval and final disposition. Discharge Plan Triage Chief Complaint: Abd Pain ED Provider: Melody Cottrell Dx/Rx/DC Orders Prescriptions: No Action esomeprazole magnesium 40 MG capsule 40 mg PO DAILY nystatin-triamcinolone 1 APPLIC cream 1 applic topical BID Qty: 1 0RF Primary Care Provider: Bianka Arora Referrals: Bianka Arora MD [[facility]] -
[2022-09-17] MEDS: 0.9% Normal Saline 1,000 ML 150 ML IV (21:51)
[2022-09-17] MEDS: Morphine 4 MG/ML Syringe IV (21:51)
[2022-09-17] MEDS: Ondansetron 4 MG/2 ML Vial IV (21:51)
[2022-09-17 21:52] LABS: ALB/GLOB Ratio 0.9 RATIO (0.9-2.4); AST(SGOT) 30 U/L (15-37); Alanine Aminotransfer ALT/SGPT 47 U/L (16-61); Alkaline Phosphatase 146 U/L (45-117); Anion Gap 10 (5-15); BUN 10 mg/dL (7-18); BUN/Creat Ratio 7.8 RATIO (10-20); Calcium,Total 9.3 mg/dL (8.5-10.1); Chloride 110 mmol/L (98-107); Creatinine, Serum 1.28 mg/dL (0.70-1.30); EST Glomerular Filtration Rate 68 mL/min (>60); Est Glom Filt Rate - Afr Amer 82 mL/min (>60); Estimated Creatinine Clearance 62.21 ml/min; Globulin 4.6 g/dL (2.2-4.2); Glucose 142 mg/dL (74-106); Potassium 3.8 mmol/L (3.5-5.1); Protein, Total 8.6 g/dL (6.4-8.2); Sodium Level 138 mmol/L (136-145)
[2022-09-17 21:58] LABS: Lipase 37 U/L (13-75)
--- NOTE | 2022-09-17 23:59 | PCM.HP.STD ---
HPI - General General Date of Admission: 09/18/22 Date of Service: 09/18/22 Chief Complaint: Abdominal pain HPI Narrative ZEYNEP THIBODEAUX, is a 37 M with a significant history of cholecystectomy who presents to the emergency department with supra umbilical pain that started on the same day of presentation. Reportedly earlier in the day patient had diarrhea. Later he developed progressively worsening supra umbilical pain. His pain is nonradiating. He describes the pain as aching discomfort which is aggravated by touch. Reportedly his cat jumped on his belly and his pain was worsened. Drinking contrast at the emergency department made his pain worse. During the course of his symptoms he developed nausea and vomiting. CT of abdomen pelvis showed bowel obstruction. Also patient was found to have leukocytosis. Emergency department discussed the case with general surgeon. Because patient had a leukocytosis internal medicine service was requested to admit patient. 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 Of note in 2018 patient had a cholecystectomy secondary to cholelithiasis with choledocholithiasis. He then developed pancreatitis post cholecystectomy . [facility] Medical History Acute cholecystitis Acute pancreatitis due to calculus of common bile duct Choledocholithiasis with obstruction Home Medications esomeprazole magnesium 40 mg capsule,delayed release 40 mg PO DAILY 10/14/17 [History Last Taken 10/19/17 22:00] nystatin-triamcinolone 100,000 unit/g-0.1 % topical cream 1 applic topical BID #1 tube 11/14/19 [Rx Last Taken Unknown] Allergy/AdvReac Type Severity Reaction Status Date / Time No Known Allergies Allergy Verified 09/17/22 20:52 Family History Other Heart disease Surgical History S/P ERCP S/P hernia repair S/P laparoscopic cholecystectomy Social History Smoking Status: Current every day smoker tobacco type: smokeless tobacco alcohol intake: current alcohol intake frequency: holidays/special occasions only ROS ROS Narrative Pertinent positives and pertinent negatives as noted in HPI. All other systems were reviewed and are negative Vital Signs Vital Signs Vital Signs: 09/17/22 20:50 Temperature 98.1 F Temperature Source Temporal Pulse Rate 73 Respiratory Rate 18 Blood Pressure 146/88 H Blood Pressure Mean 107 Pulse Ox 98 Oxygen Delivery Method Room Air Weight Weight: 102.9 kg Body Mass Index (BMI) 41.5 Physical Exam Narrative Physical exam: General: Well-nourished, well-developed. Head: Normocephalic, atraumatic, no tenderness Eyes: Vision is grossly intact. EOMI ENT, no trauma, moist mucous membranes, no rhinorrhea Neck: Nontender, No thyromegaly. CVS: Regular rate and rhythm. S1-S2 present. No murmur, gallop or rub. Respiratory : clear to auscultation bilaterally, chest wall nontender Abdomen: Soft, nontender, nondistended, normal bowel sounds, no masses : Deferred Back: Nontender, no CVA tenderness, no midline spinal tenderness, deformities, step-offs Extremities: Nontender full range of motion, no trauma Skin: Normal color, no trauma, abrasions Neuro: Alert, oriented, cranial nerves II through XII grossly intact. Psychiatry: Normal mood. Normal affect. Not depressed. Not anxious. Results Lab / Micro Data Result Diagrams: 09/17/22 21:14 09/17/22 21:14 Labs: Laboratory Results - last 24 hr 09/17/22 20:58: Urine Color Yellow, Urine Clarity Clear, Urine pH 5.0, Ur Specific [place] 1.025, Urine Protein 30 H, Urine Glucose (UA) Normal, Urine Ketones 5 H, Urine Occult Blood 10 H, Urine Nitrite Negative, Urine Bilirubin 1 H, Urine Urobilinogen 1 H, Ur Leukocyte Esterase Negative, Urine RBC 0 SEEN, Urine WBC 0-5 SEEN, Ur Squamous Epith Cells 0 SEEN, Urine Bacteria 1+, Urine Mucus 0 SEEN 09/17/22 21:14: WBC 20.4 H, RBC 6.19, Hgb 17.4 H, Hct 52.0, MCV 84.0, MCH 28.1, MCHC 33.5, RDW Std Deviation 39.8, RDW Coeff of Ganesh 13.0, Plt Count 411, MPV 9.9, Immature Gran % (Auto) 0.300, Neut % (Auto) 90.0 H, Lymph % (Auto) 6.2 L, [place] % (Auto) 3.0, Eos % (Auto) 0.2, Baso % (Auto) 0.3, Absolute Neuts (auto) 18.3 H, Absolute Lymphs (auto) 1.26, Nucleated RBC % 0 09/17/22 21:14: Sodium 138, Potassium 3.8, Chloride 110 H, Carbon Dioxide 18.0 L, Anion Gap 10, BUN 10, Creatinine 1.28, Estim Creat Clear Calc 62.21, Est GFR (MDRD) Af Amer 82, Est GFR (MDRD) Non-Af 68, BUN/Creatinine Ratio 7.8 L, Glucose 142 H, Calcium 9.3, Total Bilirubin 0.70, AST 30, ALT 47, Alkaline Phosphatase 146 H, Total Protein 8.6 H, Albumin 4.0, Globulin 4.6 H, Albumin/Globulin Ratio 0.9 09/17/22 21:14: Lipase 37 Assessment & Plan Assessment/Plan (1) Partial small bowel obstruction: (2) Leukocytosis: PLAN: Plan Partial small bowel obstruction Impression of abdomen/pelvis CT by radiology: 1.? Findings of an incomplete distal small bowel obstruction, with zone of transition within the central pelvis to the right of midline. ? 2.? Colonic diverticulosis without evidence for acute diverticulitis. ? 3.? Interval resolution of the previously noted findings of pancreatitis. ? 4.? Normal appendix. ? 5.? Slight thickening of the wall of the gastric antrum suggesting a minimal gastritis. CT of abdomen and pelvis was independently interpreted by hospitalist: I agree with radiology interpretation. NG tube placed at the emergency department. Supportive treatment with IV fluids, as needed IV morphine, as needed IV Zofran, general surgery consult. We will keep NPO. Leukocytosis White count of 20.4 with neutrophilia of 90% and lymphopenia of 6.2%. Reactive versus bacterial etiology. Trend CBC. Blood cultures ordered at the ED, follow. Elevated alkaline phosphatase Alkaline phosphatase mildly elevated at 146 (normal 45-117); likely reactive. Trend CMP. Gastritis IV Protonix ordered. DVT prophylaxis: SCDs ordered. Charges/Coding Visit Charges Inpatient E&M: 40857 Init Hosp L3
[2022-09-18] MEDS: Oxymetazoline 0.05% 1 SPRAY SPRAY.BTL 2 SPRAY NASAL (00:36)
[2022-09-18] MEDS: Ondansetron 4 MG/2 ML Vial IV (00:44)
[2022-09-18] MEDS: LORazepam 2 MG/ML Syringe 0.5 MG IV (01:00)
[2022-09-18 04:09] VITALS: BP 000/0; PULSE 0; RESP 0; TEMP -17.7; TEMP 0; O2SAT 0
[2022-09-18] MEDS: 0.9% Normal Saline 1,000 ML 150 ML IV (04:22)
[2022-09-18 04:30] VITALS: BP 124/93; PULSE 72; RESP 20; TEMP 37.1; O2SAT 97; BMI 41.1
[2022-09-18] MEDS: Lactated Ringers 1,000 ML 100 ML IV ×2 (05:59→17:57)
[2022-09-18 06:05] LABS: Absolute Lymphocyte Count 1.55 X10^3/uL (0.83-4.51); Absolute Neutrophil Count 16.7 X10^3/uL (2.0-7.7); Basophil# 0.03 X10^3/uL; Basophil% 0.2 % (0-1); Eosinophil# 0.07 X10^3/uL; Eosinophils% 0.4 % (0-5); Hematocrit 48.2 % (40-54); Hemoglobin 16.1 g/dL (13.0-16.5); Lymphocyte # 1.55 X10^3/ul (0.83-4.51); Mean Corp Hgb Conc 33.4 g/dL (32-36); Mean Corpuscular Hgb 28.3 pg (27.0-32.0); Mean Corpuscular Volume 84.9 fL (80-94); Mean Platelet Vol. 9.9 fl (6.2-12.0); Monocyte# 1.09 X10^3/uL; Monocyte% 5.6 % (0-10); NRBC Flagged by Analyzer 0 % (0-5); Neutrophil # 16.67 X10^3/uL (2.7-7.7); Neutrophil % 85.4 % (47-70); Platelet Count 367 K/mm3 (150-450); RBC Distribution Width CV 13.2 % (11.6-14.6); RBC Distribution Width SD 40.9 fl (35.1-43.9); Red Blood Count 5.68 M/mm3 (4.6-6.2); White Blood Count 19.5 K/mm3 (4.4-11.0)
[2022-09-18 06:41] LABS: ALB/GLOB Ratio 0.9 RATIO (0.9-2.4); AST(SGOT) 17 U/L (15-37); Alanine Aminotransfer ALT/SGPT 33 U/L (16-61); Albumin, Serum 3.5 g/dL (3.2-5.0); Alkaline Phosphatase 121 U/L (45-117); Anion Gap 6 (5-15); BUN 11 mg/dL (7-18); Calcium,Total 8.7 mg/dL (8.5-10.1); Chloride 112 mmol/L (98-107); EST Glomerular Filtration Rate 90 mL/min (>60); Est Glom Filt Rate - Afr Amer 109 mL/min (>60); Estimated Creatinine Clearance 79.63 ml/min; Globulin 3.8 g/dL (2.2-4.2); Glucose 138 mg/dL (74-106); Potassium 3.5 mmol/L (3.5-5.1); Protein, Total 7.3 g/dL (6.4-8.2); Sodium Level 142 mmol/L (136-145)
--- NOTE | 2022-09-18 07:26 | EX.PCM.CON.S ---
Assessment & Plan Assessment/Plan (1) Nausea, vomiting and diarrhea: (2) Abdominal pain: (3) Leukocytosis: (4) Partial small bowel obstruction: PLAN: Plan We will plan to check modified small bowel follow-through with Gastrografin this morning. Unsure if patient really has bowel obstruction as he mainly had the diarrhea prior. Personally reviewed CT abdomen pelvis. Appears that the stomach was enlarged but the first part of the small bowel with contrast was not dilated some of the mid small bowel was more dilated, liquid stool in the cecum. Patient states that he did have nausea and vomiting when the NG was placed last night in the ER. Patient wbc and still 19.5 unsure of etiology. Patient states this all started with diarrhea on Thursday and nausea vomiting happened yesterday with a bowel movement prior to coming into the ER. Siri Mazariegos M.D. Pager: [phone] [facility] [address] [place] [address], [facility], [address] [place] [id number] Office: [phone] HPI Consult Data Date of Consult: 09/18/22 HPI Narrative HPI Narrative: ZEYNEP THIBODEAUX, is a 37 M who presented to ER with diarrhea starting on Thursday patient started to have nausea and vomiting yesterday. Patient midst to some mid abdominal pain with this. Patient states last bowel movement he had was yesterday about 8 PM prior to coming to the ER. Patient's abdominal surgeries include umbilical hernia repair without mesh, lap diaz. Currently patient denies any nausea or vomiting NG is in place, minimal in container mostly clear in color. Patient's KUB from this morning shows a large gastric bubble with NG in the stomach. Patient white blood count still 19.5 from 20?with a left shift slightly decreased. Afebrile. [facility] Medical History (Updated 09/18/22 @ 08:[address] Siri Mazariegos MD) Acute cholecystitis Acute pancreatitis due to calculus of common bile duct Choledocholithiasis with obstruction Home Medications esomeprazole magnesium 40 mg capsule,delayed release 40 mg PO DAILY 10/14/17 [History Last Taken 10/19/17 22:00] nystatin-triamcinolone 100,000 unit/g-0.1 % topical cream 1 applic topical BID #1 tube 11/14/19 [Rx Last Taken Unknown] Allergy/AdvReac Type Severity Reaction Status Date / Time No Known Allergies Allergy Verified 09/17/22 20:52 Family History Other Heart disease Surgical History S/P ERCP S/P hernia repair S/P laparoscopic cholecystectomy Social History Smoking Status: Current every day smoker tobacco type: smokeless tobacco alcohol intake: current alcohol intake frequency: holidays/special occasions only ROS Constitutional Constitutional: Denies fever(s) Eyes Eyes: Denies change in vision ENT HEENT: Denies dysphagia Cardiovascular Cardiovascular: Denies chest pain Respiratory/Chest Respiratory/Chest: Denies cough Gastrointestinal Gastrointestinal: Reports abdominal pain, diarrhea, nausea and vomiting Genitourinary Genitourinary: Denies dysuria Musculoskeletal Musculoskeletal: Denies joint swelling Integumentary Integumentary: Denies jaundice Neurologic Neurologic: Denies focal weakness Psychiatric Psychiatric: Denies anxiety or depression Endocrine Endocrinology: Denies palpitations Hematologic/Lymphatic Hematologic/Lymphatic: Denies easy bleeding Physical Exam Const alert, oriented x3 and no apparent distress HEENT normocephalic and head/scalp atraumatic HEENT Narrative: NG in place?wall suction appears to be functioning Resp normal respiratory effort Cardio regular rate GI soft to palpation; Negative for non-distended Palpation: tender other (Mid abdomen, no peritoneal signs); Negative for guarding Extremity no clubbing, cyanosis or edema Neuro CN's II-XII intact bilaterally Psych mental status grossly normal Lab / Micro Data Result Diagrams: 09/18/22 05:55 09/18/22 05:55 Labs: Laboratory Results - last 24 hr 09/17/22 20:58: Urine Color Yellow, Urine Clarity Clear, Urine pH 5.0, Ur Specific [place] 1.025, Urine Protein 30 H, Urine Glucose (UA) Normal, Urine Ketones 5 H, Urine Occult Blood 10 H, Urine Nitrite Negative, Urine Bilirubin 1 H, Urine Urobilinogen 1 H, Ur Leukocyte Esterase Negative, Urine RBC 0 SEEN, Urine WBC 0-5 SEEN, Ur Squamous Epith Cells 0 SEEN, Urine Bacteria 1+, Urine Mucus 0 SEEN 05/24/23 21:14: WBC 20.4 H, RBC 6.19, Hgb 17.4 H, Hct 52.0, MCV 84.0, MCH 28.1, MCHC 33.5, RDW Std Deviation 39.8, RDW Coeff of Ganesh 13.0, Plt Count 411, MPV 9.9, Immature Gran % (Auto) 0.300, Neut % (Auto) 90.0 H, Lymph % (Auto) 6.2 L, [place] % (Auto) 3.0, Eos % (Auto) 0.2, Baso % (Auto) 0.3, Absolute Neuts (auto) 18.3 H, Absolute Lymphs (auto) 1.26, Nucleated RBC % 0 09/17/22 21:14: Sodium 138, Potassium 3.8, Chloride 110 H, Carbon Dioxide 18.0 L, Anion Gap 10, BUN 10, Creatinine 1.28, Estim Creat Clear Calc 62.21, Est GFR (MDRD) Af Amer 82, Est GFR (MDRD) Non-Af 68, BUN/Creatinine Ratio 7.8 L, Glucose 142 H, Calcium 9.3, Total Bilirubin 0.70, AST 30, ALT 47, Alkaline Phosphatase 146 H, Total Protein 8.6 H, Albumin 4.0, Globulin 4.6 H, Albumin/Globulin Ratio 0.9 09/17/22 21:14: Lipase 37 09/18/22 05:55: WBC 19.5 H, RBC 5.68, Hgb 16.1, Hct 48.2, MCV 84.9, MCH 28.3, MCHC 33.4, RDW Std Deviation 40.9, RDW Coeff of Ganesh 13.2, Plt Count 367, MPV 9.9, Immature Gran % (Auto) 0.400, Neut % (Auto) 85.4 H, Lymph % (Auto) 8.0 L, [place] % (Auto) 5.6, Eos % (Auto) 0.4, Baso % (Auto) 0.2, Absolute Neuts (auto) 16.7 H, Absolute Lymphs (auto) 1.55, Nucleated RBC % 0 09/18/22 05:55: Sodium 142, Potassium 3.5, Chloride 112 H, Carbon Dioxide 24.0, Anion Gap 6, BUN 11, Creatinine 1.00, Estim Creat Clear Calc 79.63, Est GFR (MDRD) Af Amer 109, Est GFR (MDRD) Non-Af 90, BUN/Creatinine Ratio 11.0, Glucose 138 H, Calcium 8.7, Total Bilirubin 0.70, AST 17, ALT 33, Alkaline Phosphatase 121 H, Total Protein 7.3, Albumin 3.5, Globulin 3.8, Albumin/Globulin Ratio 0.9 Radiology Impression KUB X-Ray 09/17/22 00:50 IMPRESSION: Satisfactory NG tube positioning. Electronically Signed: Brian Gamez MD at 1:21 EDT , Abdomen/Pelvis CT 09/17/22 21:42 IMPRESSION: 1. Findings of an incomplete distal small bowel obstruction, with zone of transition within the central pelvis to the right of midline. 2. Colonic diverticulosis without evidence for acute diverticulitis. 3. Interval resolution of the previously noted findings of pancreatitis. 4. Normal appendix. 5. Slight thickening of the wall of the gastric antrum suggesting a minimal gastritis. Nonstandard communication protocol initiated. Electronically Signed: Brian Gamez MD at 0:05 EDT , ADDENDUM: 09/18/22 0027 IMPRESSION: 1. Findings of an incomplete distal small bowel obstruction, with zone of transition within the central pelvis to the right of midline. 2. Colonic diverticulosis without evidence for acute diverticulitis. 3. Interval resolution of the previously noted findings of pancreatitis. 4. Normal appendix. 5. Slight thickening of the wall of the gastric antrum suggesting a minimal gastritis. Nonstandard communication protocol initiated. N.B. : The above Results were Read Back by Brian Gamez MD to José Miguel Rojas MD, and understanding confirmed on 09/18/2022 00:20:39 (ET). Electronically Signed: Brian Gamez MD at 0:05 EDT , Charges/Coding Visit Charges Inpatient E&M: 46257 Init Hosp L3
[2022-09-18 07:44] VITALS: O2SAT 95
--- NOTE | 2022-09-18 08:08 | PN.HOSP_ITS ---
Reason for Visit Reason for Visit: Abdominal pain Subjective Subjective Mr. Rojo is a 37-year-old white male who presented to the emergency department at [facility] on 09/18/2022 complaining of abdominal pain. Pain was in the central upper abdomen and started on the day of presentation. He reported diarrhea early in the day and then developed worsening upper mid abdominal pain. The pain was nonradiating and he described it as aching in nature. It was aggravated by palpation and drinking contrast the emergency department made his pain worse. Vital signs were stable on presentation. CT of the abdomen pelvis showed a bowel obstruction. CBC showed a leukocytosis with a left shift. He had eaten [place] food the day prior to presentation. He had previous cholecystectomy in 2018. CT of the abdomen pelvis performed prior to admission showed findings consistent with incomplete distal small bowel obstruction noting a zone of transition within the central pelvis to the right of midline, colonic diverticulosis without diverticulitis, interval resolution of previous noted pancreatitis, normal appendix and slight thickening of the wall of the gastric antrum suggestive of minimal gastritis. NG tube was placed in emergency department for decompression. He was started on IV fluids, pain medication, antiemetics, and general surgery was consulted. Leukocytosis was noted and blood cultures were ordered in the emergency departme nt however suspicion for infection is low and it is suspected that this is reactive. General surgery has evaluated the patient and ordered a small bowel follow-through. Objective Data Objective Data Vital Signs: Vital Signs Temp Pulse Resp BP Pulse Ox O2 Del Method 98.7 F 72 20 H 124/93 H 95 Room Air 09/18/22 04:30 09/18/22 04:30 09/18/22 04:30 09/18/22 04:30 09/18/22 07:44 09/18/22 07:44 Oxygen Delivery Method Room Air Weight: 102.6 kg Body Mass Index (BMI) 41.1 Intake & Output: Intake and Output for Last 24 Hours 09/16/22 09/17/22 09/18/22 23:59 23:59 23:59 Intake Total 1087.5 / 1087.5 Balance 1087.5 / 1087.5 Lab / Micro Data Result Diagrams: 09/18/22 14:21 09/18/22 05:55 Labs: Laboratory Results - last 24 hr 09/17/22 20:58: Urine Color Yellow, Urine Clarity Clear, Urine pH 5.0, Ur Specific [place] 1.025, Urine Protein 30 H, Urine Glucose (UA) Normal, Urine Ketones 5 H, Urine Occult Blood 10 H, Urine Nitrite Negative, Urine Bilirubin 1 H, Urine Urobilinogen 1 H, Ur Leukocyte Esterase Negative, Urine RBC 0 SEEN, Urine WBC 0-5 SEEN, Ur Squamous Epith Cells 0 SEEN, Urine Bacteria 1+, Urine Mucus 0 SEEN 09/17/22 21:14: WBC 20.4 H, RBC 6.19, Hgb 17.4 H, Hct 52.0, MCV 84.0, MCH 28.1, MCHC 33.5, RDW Std Deviation 39.8, RDW Coeff of Ganesh 13.0, Plt Count 411, MPV 9.9, Immature Gran % (Auto) 0.300, Neut % (Auto) 90.0 H, Lymph % (Auto) 6.2 L, [place] % (Auto) 3.0, Eos % (Auto) 0.2, Baso % (Auto) 0.3, Absolute Neuts (auto) 18.3 H, Absolute Lymphs (auto) 1.26, Nucleated RBC % 0 09/17/22 21:14: Sodium 138, Potassium 3.8, Chloride 110 H, Carbon Dioxide 18.0 L , Anion Gap 10, BUN 10, Creatinine 1.28, Estim Creat Clear Calc 62.21, Est GFR (MDRD) Af Amer 82, Est GFR (MDRD) Non-Af 68, BUN/Creatinine Ratio 7.8 L, Glucose 142 H, Calcium 9.3, Total Bilirubin 0.70, AST 30, ALT 47, Alkaline Phosphatase 146 H, Total Protein 8.6 H, Albumin 4.0, Globulin 4.6 H, Albumin/Globulin Ratio 0.9 09/17/22 21:14: Lipase 37 09/18/22 05:55: WBC 19.5 H, RBC 5.68, Hgb 16.1, Hct 48.2, MCV 84.9, MCH 28.3, MCHC 33.4, RDW Std Deviation 40.9, RDW Coeff of Ganesh 13.2, Plt Count 367, MPV 9.9, Immature Gran % (Auto) 0.400, Neut % (Auto) 85.4 H, Lymph % (Auto) 8.0 L, [place] % (Auto) 5.6, Eos % (Auto) 0.4, Baso % (Auto) 0.2, Absolute Neuts (auto) 1 6.7 H, Absolute Lymphs (auto) 1.55, Nucleated RBC % 0 09/18/22 05:55: Sodium 142, Potassium 3.5, Chloride 112 H, Carbon Dioxide 24.0, Anion Gap 6, BUN 11, Creatinine 1.00, Estim Creat Clear Calc 79.63, Est GFR (MDRD) Af Amer 109, Est GFR (MDRD) Non-Af 90, BUN/Creatinine Ratio 11.0, Glucose 138 H, Calcium 8.7, Total Bilirubin 0.70, AST 17, ALT 33, Alkaline Phosphatase 121 H, Total Protein 7.3, Albumin 3.5, Globulin 3.8, Albumin/Globulin Ratio 0.9 Radiography Diagnostic Testing: Radiology Impression KUB X-Ray 09/17/22 00:50 IMPRESSION: Satisfactory NG tube positioning. Electronically Signed: Brian Gamez MD at 1:21 EDT , Abdomen/Pelvis CT 09/17/22 21:42 IMPRESSION: 1. Findings of an incomplete distal small bowel obstruction, with zone of transition within the central pelvis to the right of midline. 2. Colonic diverticulosis without evidence for acute diverticulitis. 3. Interval resolution of the previously noted findings of pancreatitis. 4. Normal appendix. 5. Slight thickening of the wall of the gastric antrum suggesting a minimal gastritis. Nonstandard communication protocol initiated. Electronically Signed: Brian Gamez MD at 0:05 EDT , ADDENDUM: 09/18/22 0027 IMPRESSION: 1. Findings of an incomplete distal small bowel obstruction, with zone of transition within the central pelvis to the right of midline. 2. Colonic diverticulosis without evidence for acute diverticulitis. 3. Interval resolution of the previously noted findings of pancreatitis. 4. Normal appendix. 5. Slight thickening of the wall of the gastric antrum suggesting a minimal gastritis. Nonstandard communication protocol initiated. N.B. : The above Results were Read Back by Brian Gamez MD to José Miguel Rojas MD, and understanding confirmed on 09/18/2022 00:20:39 (ET). Electronically Signed: Brian Gamez MD at 0:05 EDT , Physical Exam Const alert, oriented x3, no apparent distress and well nourished Constitutional Narrative: Morbidly obese, middle-aged, white male, lying in bed, appears irritated but comfortable, nontoxic HEENT head/scalp atraumatic and moist oral mucous membranes HEENT Narrative: NG tube in nares-right Head and Scalp: normocephalic Resp normal respiratory effort, no retractions, no use of accessory muscles and clear to auscultation bilaterally Cardio regular rate, regular rhythm, S1 normal heart sound, S2 normal heart sound, no murmurs, no rub, no gallops and no clicks GI GI Narrative: Bowel sounds are hypoactive, no significant tenderness at this time, abdomen is soft, no distention Extremity no clubbing, cyanosis or edema Extremity Narrative: pedal pulses are 2+ Neuro oriented x3, moves all extremities and no focal motor deficits Speech: speech normal Psych Psych Narrative: Somewhat irritated that he is in the hospital but seems to be accepting, pleasant, appropriate Assessment & Plan Assessment/Plan (1) Abdominal pain: (2) Partial small bowel obstruction: PLAN: Plan Abdominal pain/nausea/vomiting secondary to partial small bowel obstruction -NG tube in place -IV fluids as ordered -Continue as needed pain medication -Continue as needed antiemetics -N.p.o. -General surgery consultation -Plan is for small bowel follow-through today -Only previous abdominal surgery consisted of cholecystectomy in 2018 Leukocytosis -Blood cultures were done in the emergency department however patient has no other signs of acute infection -There is a left shift - we suspect this is reactive due to his ongoing abdominal process -Repeat lab in a.m. 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
--- NOTE | 2022-09-18 08:20 | RAD_ITS ---
INDICATION: sbo -- gastrografin; modified- initial, 2 hr and 3 hr KUB EXAMINATION/TECHNIQUE: 120 mL Gastrografin plus 120 mL water administered by mouth by on-site provider with sequential images with 13] images sequentially obtained prior to contrast, immediate postcontrast, 2 hour, 3 hour, 5 hours, 8 hours, and 26 hours Total Fluoroscopic Time: 0 AND number of Fluoroscopic Images: 13 COMPARISON: Abdominal radiograph September 18, 2022, CT abdomen and pelvis September 17, 2022. FINDINGS: On floater operator image enteric tube is located with within the stomach. Multiple layering bowel loops of small bowel are noted in the upper abdomen. IV contrast is noted within the bladder from a prior study. No evidence of pneumoperitoneum. On initial and 5 hour imaging oral contrast remains within the stomach with persistent distention of right upper abdominal small bowel loops with air-fluid levels on upright images. There is mild progressive dilute layering oral contrast being within dilated loops of small bowel 3 and 5 hours. At 8 hours there is oral contrast within the colon with significant amount of contrast remaining within small bowel and stomach. At 26 hours there is passage of contrast mostly into colon and extending to rectum with persistent dilated loops of upper abdominal small bowel with air-fluid levels. No evidence of free air or extraluminal contrast. RAD/Small Bowel Series Only IMPRESSION: Distended upper abdominal small bowel with air-fluid levels and delayed transit into large bowel between 5 and 8 hours compatible with partial obstruction or ileus. No evidence of complete obstruction. Contrast passes to rectum by 26 hour radiograph with air-fluid levels in colon compatible with an underlying generalized ileus.. Electronically Signed: Thuan Gustafson MD at 8:27 EDT ,
[2022-09-18] MEDS: 0.9% Saline Lock 10 ML Syringe IV (08:59)
[2022-09-18 09:02] VITALS: BP 131/82; PULSE 56; RESP 16; TEMP 36.9; O2SAT 97
[2022-09-18] MEDS: BENZOCAINE/MENTHOL 1 LOZENGE MUCOUS MEM (14:10)
--- NOTE | 2022-09-18 14:38 | PCM.PN.BLA ---
Progress Note Patient small bowel follow-through appears to be in stomach and small bowel at 5 hours. We will continue checking KUBs. Patient's had no fevers vital signs are stable. Patient did have a small amount of flatus. Still plan to continue with conservative management with NG. And also rechecking CBC. Patient was agreeable with plan.
[2022-09-18 14:40] LABS: Absolute Lymphocyte Count 1.95 X10^3/uL (0.83-4.51); Basophil# 0.03 X10^3/uL; Basophil% 0.2 % (0-1); Eosinophil# 0.14 X10^3/uL; Eosinophils% 0.8 % (0-5); Hemoglobin 16.1 g/dL (13.0-16.5); Lymphocyte # 1.95 X10^3/ul (0.83-4.51); Lymphocyte % 10.6 % (19-41); Mean Corp Hgb Conc 33.5 g/dL (32-36); Mean Corpuscular Hgb 28.4 pg (27.0-32.0); Mean Corpuscular Volume 84.8 fL (80-94); Mean Platelet Vol. 9.9 fl (6.2-12.0); Monocyte# 1.22 X10^3/uL; Monocyte% 6.6 % (0-10); NRBC Flagged by Analyzer 0 % (0-5); Neutrophil # 14.95 X10^3/uL (2.7-7.7); Neutrophil % 81.5 % (47-70); Platelet Count 378 K/mm3 (150-450); RBC Distribution Width CV 13.4 % (11.6-14.6); RBC Distribution Width SD 41.4 fl (35.1-43.9); Red Blood Count 5.66 M/mm3 (4.6-6.2); White Blood Count 18.4 K/mm3 (4.4-11.0)
--- NOTE | 2022-09-18 14:45 | CASEMGMT ---
RN ELIZABETH Face to Face with patient for initial transition planning/care coordination assessment. RN CM introduced self and role at [facility]. Patient sitting in chair, alert and oriented, sister at bedside. Patient willing to participate in assessment and is able to answer all questions appropriately. Care providers, pharmacy, and demographics verified. Patient wishes to discharge home, denies need for home health at this time. Patient states she has no further needs or concerns at this time. CM to follow for discharge planning needs that may arise. PCP: Maite Specialists: none Preferred Pharmacy: [facility] retail Insurance: anthem Prescription Benefit: yes Living Will/HPOA: none LNOK: sister, mother Living Arrangements: Patient lives alone in a single story home with steps and railing to enter the home. Patient states she is independent at home. Transportation: self, sister DME/HHC: Patient denies DME in the home. NO previous HHC or SNF Disposition Plan: Patient to discharge home with family support and follow-up plans in place. Dorota DICKERSON, RN, CM
[2022-09-18 15:00] VITALS: BP 135/72; PULSE 60; RESP 16; TEMP 36.9; O2SAT 99
[2022-09-18 20:30] VITALS: BP 122/79; PULSE 52; RESP 16; TEMP 36.9; O2SAT 97
--- NOTE | 2022-09-18 21:44 | NURSING ---
Have asked patient twice since 193 about hooking his NG tube back up and he doesn't want it hooked up, he wants it out; He has had 2 bms and has active bs x4 quadrants, no nausea or pain. Will continue to monitor.
[2022-09-19] MEDS: Lactated Ringers 1,000 ML 100 ML IV (02:20)
[2022-09-19 02:24] VITALS: BP 120/65; PULSE 64; RESP 16; TEMP 36.4; O2SAT 98
[2022-09-19] MEDS: BENZOCAINE/MENTHOL 1 LOZENGE MUCOUS MEM (02:34)
--- NOTE | 2022-09-19 06:15 | NURSING ---
patient is off the floor for a CT scan, iv was locked.
[2022-09-19 07:56] LABS: Basophil# 0.05 X10^3/uL; Basophil% 0.3 % (0-1); Eosinophil# 0.33 X10^3/uL; Hematocrit 47.5 % (40-54); Hemoglobin 15.4 g/dL (13.0-16.5); Lymphocyte % 17.1 % (19-41); Mean Corp Hgb Conc 32.4 g/dL (32-36); Mean Corpuscular Volume 86.4 fL (80-94); Mean Platelet Vol. 9.9 fl (6.2-12.0); Monocyte# 1.14 X10^3/uL; NRBC Flagged by Analyzer 0 % (0-5); Neutrophil # 11.96 X10^3/uL (2.7-7.7); Neutrophil % 73.1 % (47-70); Platelet Count 343 K/mm3 (150-450); RBC Distribution Width CV 13.2 % (11.6-14.6); RBC Distribution Width SD 41.4 fl (35.1-43.9); White Blood Count 16.4 K/mm3 (4.4-11.0)
[2022-09-19 08:13] VITALS: PULSE 70
[2022-09-19 08:16] VITALS: BP 115/73; PULSE 64; RESP 16; TEMP 36.7; O2SAT 96
--- NOTE | 2022-09-19 08:31 | NURSING ---
ng tube removed.
--- NOTE | 2022-09-19 08:35 | PN.SURG_ITS ---
Subjective Subjective Pt had several BM, still has mild abd discomfort, but NG was clamped all night as pt didn't want it hooked up and return was minimal this AM, KUB shows contrast in colon. Objective Data Objective Data Vital Signs: Vital Signs Temp Pulse Resp BP Pulse Ox O2 Del Method 98.1 F 64 16 115/73 96 Room Air 09/19/22 08:16 09/19/22 08:16 09/19/22 08:16 09/19/22 08:16 09/19/22 08:16 09/19/22 08:16 Oxygen Delivery Method Room Air Weight: 226 lb 3.108 oz Body Mass Index (BMI) 41.1 Intake & Output: Intake and Output for Last 24 Hours 09/17/22 09/18/22 09/19/22 23:59 23:59 23:59 Intake Total 2772.50 / 2772.50 838.33 / 838.33 Output Total 525 / 525 0 / 0 Balance 2247.50 / 2247.50 838.33 / 838.33 Lab / Micro Data Result Diagrams: 09/19/22 07:45 09/18/22 05:55 Labs: Laboratory Results - last 24 hr 09/18/22 14:21: WBC 18.4 H, RBC 5.66, Hgb 16.1, Hct 48.0, MCV 84.8, MCH 28.4, MCHC 33.5, RDW Std Deviation 41.4, RDW Coeff of Ganesh 13.4, Plt Count 378, MPV 9.9, Immature Gran % (Auto) 0.300, Neut % (Auto) 81.5 H, Lymph % (Auto) 10.6 L, [place] % (Auto) 6.6, Eos % (Auto) 0.8, Baso % (Auto) 0.2, Absolute Neuts (auto) 15.0 H, Absolute Lymphs (auto) 1.95, Nucleated RBC % 0 09/19/22 07:45: WBC 16.4 H, RBC 5.50, Hgb 15.4, Hct 47.5, MCV 86.4, MCH 28.0, MCHC 32.4, RDW Std Deviation 41.4, RDW Coeff of Ganesh 13.2, Plt Count 343, MPV 9.9, Immature Gran % (Auto) 0.500, Neut % (Auto) 73.1 H, Lymph % (Auto) 17.1 L, [place] % (Auto) 7.0, Eos % (Auto) 2.0, Baso % (Auto) 0.3, Absolute Neuts (auto) 12.0 H, Absolute Lymphs (auto) 2.80, Nucleated RBC % 0 Micro: Microbiology 09/18/22 18:16 Stool Enteric Bacteriology - Final Radiography Diagnostic Testing: Radiology Impression Small Bowel X-Ray 09/18/22 08:20 IMPRESSION: Distended upper abdominal small bowel with air-fluid levels and delayed transit into large bowel between 5 and 8 hours compatible with partial obstruction or ileus. No evidence of complete obstruction. Contrast passes to rectum by 26 hour radiograph with air-fluid levels in colon compatible with an underlying generalized ileus.. Electronically Signed: Thuan Gustafson MD at 8:27 EDT Reading Location ID and State: [facility] / [place] Tel , Service support , Physical Exam Const oriented x3 and no apparent distress Resp normal respiratory effort Cardio regular rate GI soft to palpation Inspection: Negative for abdominal distention Palpation: tender other (mild mid abdomen, no PS) Assessment & Plan Assessment/Plan (1) Nausea, vomiting and diarrhea: (2) Abdominal pain: (3) Leukocytosis: (4) Partial small bowel obstruction: PLAN: Plan Currently contrast in the colon on the KUB. Patient has had the tube clamped virtually all night as he did not want hooked up and denied any nausea when it was hooked up there is 0 return. NG was removed. Started on clears. if sara ok to advance to fulls and then would be ok to d/c if pt continues to do well. White blood count 16.4 patient is not on any antibiotics, preliminary and stool enteric panel iSri Mazariegos M.D. Pager: [phone] [facility] [address] [place] [address], [facility], [address] [place] [address] Office: [phone]
--- NOTE | 2022-09-19 10:55 | PCM.DC.SUM ---
Providers Date of Admission: 09/18/22 Date of Discharge: 09/19/22 Primary Care Physician: Dr. Bianka Arora MD Reason For Visit: ABDOMINAL PAIN; NAUSEA; VOMITING, DIARRHEA Diagnosis Discharge Diagnosis (1) Nausea, vomiting and diarrhea: Status: Acute Code(s): R11.2 - Nausea with vomiting, unspecified; R19.7 - Diarrhea, unspecified (2) Abdominal pain: Status: Acute Code(s): R10.9 - Unspecified abdominal pain (3) Leukocytosis: Status: Acute Code(s): D72.829 - Elevated white blood cell count, unspecified (4) Partial small bowel obstruction: Status: Acute Code(s): K56.600 - Partial intestinal obstruction, unspecified as to cause Medications at Discharge Home Medications esomeprazole magnesium 40 mg capsule,delayed release 40 mg PO DAILY 10/14/17 nystatin-triamcinolone 100,000 unit/g-0.1 % topical cream 1 applic topical BID #1 tube 11/14/19 Hospital Course Operations None Procedures - (CT scan abdomen/pelvis/small bowel follow-through) Summary of Care Provided Minutes Spent on Discharge: 27 Hospital Course: Mr. Rojo is a 37-year-old white male who presented to the emergency department at [facility] on 09/18/2022 complaining of abdominal pain.? Pain was in the central upper abdomen and started on the day of presentation.? He reported diarrhea early in the day and then developed worsening upper mid abdominal pain.? The pain was nonradiating and he described it as aching in nature.? It was aggravated by palpation and drinking contrast the emergency department made his pain worse.? Vital signs were stable on presentation.? CT of the abdomen pelvis showed a bowel obstruction.? CBC showed a leukocytosis with a left shift.? He had eaten [place] food the day prior to presentation.? He had previous cholecystectomy in 2018.? CT of the abdomen pelvis performed prior to admission showed findings consistent with incomplete distal small bowel obstruction noting a zone of transition within the central pelvis to the right of midline, colonic diverticulosis without diverticulitis, interval resolution of previous noted pancreatitis, normal appendix and slight thickening of the wall of the gastric antrum suggestive of minimal gastritis.? NG tube was placed in emergency department for decompression.? He was started on IV fluids, pain medication, antiemetics, and general surgery was consulted.? Leukocytosis was noted and blood cultures were ordered in the emergency department. He was not placed on empiric antibiotics however as it was felt this was likely reactive. On the medical floor he was seen by general surgery and a small bowel follow-through was ordered and performed on 09/18/2022. It did show distended upper abdominal small bowel with air-fluid levels and delayed transit into the large bowel between 5 and 8 hours compatible with partial obstruction or ileus with no evidence of complete obstruction. Contrast passed through the rectum by 26-hour radiograph with air-fluid levels in the colon compatible with underlying generalized ileus. The patient had multiple bowel movements on the evening of 09/18/2022 and again on the a.m. of 09/19/2022. His abdominal pain was much better and the NG was able to be removed. He was started on a clear liquid diet which he tolerated well and was transition to full liquids with good tolerance. General surgery felt he was able to go home at that point and the patient was eager. His white count did remain elevated at 16.5 but was overall trending down. Blood cultures were still pending at the time of discharge and I will review these ongoing to make sure that they have no growth. If cultures are positive I will recontact the patient and advise appropriately. Patient was able to be discharged home and instructed to start with a soft bland diet and advance slowly as tolerated over the next several days. He stated he was feeling back to his baseline. There is no medical need to follow-up with general surgery but I did give him the information if he felt he wanted to from a comfort standpoint and he voiced understanding. I did have him follow-up with his primary care physician within the next month. I do suspect the patient may have obstructive sleep apnea and do recommend an outpatient polysomnography be ordered if primary care physician agrees. No new medications were initiated. Discharge diagnoses: Partial small bowel obstruction-resolved Abdominal pain-resolved Nausea/vomiting-resolved Leukocytosis History of GERD/gastritis Morbid obesity Suspected GAVI Tobacco abuse Physical Exam Narrative Patient states he is feeling better and back to his baseline. Tolerating clear liquid diet without any difficulty. Denies any nausea or vomiting. Had bowel movements yesterday evening and this morning. Const alert, oriented x3, no apparent distress and well nourished Constitutional Narrative: Morbidly obese, middle-aged, white male, sitting up in a chair at the bedside, watching television, appears comfortable, nontoxic General Appearance: cooperative, comfortable, well kempt and well developed Orientation / Consciousness: awake, oriented to person, oriented to place and oriented to time Exam Limitations: no limitations Nutritional Appearance: morbidly obese HEENT normocephalic, head/scalp atraumatic, hearing grossly normal bilaterally and moist oral mucous membranes HEENT Narrative: Mallampati 3, no thrush Resp normal respiratory effort, no retractions, no use of accessory muscles and clear to auscultation bilaterally Cardio regular rate, regular rhythm, S1 normal heart sound, S2 normal heart sound, no murmurs, no rub, no gallops and no clicks GI normal to inspection, nondistended, normoactive bowel sounds, soft to palpation and non-tender Extremity no clubbing, cyanosis or edema Extremity Narrative: pedal pulses are 2+ Neuro oriented x3, moves all extremities and no focal motor deficits Speech: speech normal Psych affect normal Psych Narrative: Pleasant, appropriately, anxious to go home Weight / BMI Weight Weight: 102.6 kg Body Mass Index (BMI) 41.1 ABG / Lab / Microbiology Data Result Diagrams: 09/19/22 07:45 09/18/22 05:55 Laboratory: Laboratory Results - last 24 hr 09/18/22 14:21: WBC 18.4 H, RBC 5.66, Hgb 16.1, Hct 48.0, MCV 84.8, MCH 28.4, MCHC 33.5, RDW Std Deviation 41.4, RDW Coeff of Ganesh 13.4, Plt Count 378, MPV 9.9, Immature Gran % (Auto) 0.300, Neut % (Auto) 81.5 H, Lymph % (Auto) 10.6 L, [place] % (Auto) 6.6, Eos % (Auto) 0.8, Baso % (Auto) 0.2, Absolute Neuts (auto) 15.0 H, Absolute Lymphs (auto) 1.95, Nucleated RBC % 0 09/19/22 07:45: WBC 16.4 H, RBC 5.50, Hgb 15.4, Hct 47.5, MCV 86.4, MCH 28.0, MCHC 32.4, RDW Std Deviation 41.4, RDW Coeff of Ganesh 13.2, Plt Count 343, MPV 9.9, Immature Gran % (Auto) 0.500, Neut % (Auto) 73.1 H, Lymph % (Auto) 17.1 L, [place] % (Auto) 7.0, Eos % (Auto) 2.0, Baso % (Auto) 0.3, Absolute Neuts (auto) 12.0 H, Absolute Lymphs (auto) 2.80, Nucleated RBC % 0 Microbiology: Microbiology 09/18/22 18:16 Stool Enteric Bacteriology - Final Radiography Diagnostic Testing: Radiology Impression Small Bowel X-Ray 09/18/22 08:20 IMPRESSION: Distended upper abdominal small bowel with air-fluid levels and delayed transit into large bowel between 5 and 8 hours compatible with partial obstruction or ileus. No evidence of complete obstruction. Contrast passes to rectum by 26 hour radiograph with air-fluid levels in colon compatible with an underlying generalized ileus.. Electronically Signed: Thuan Gustafson MD at 8:27 EDT Reading Location ID and State: [facility] / [place] Tel , Service support , D/C Instructions Discharge Diet: Soft diet (Advance over the next couple days as tolerated to regular diet) Discharge Activity: Return to Normal Activity Return to work on: 09/20/22 Meaningful Use Info Meaningful Use Diagnoses (Choose all that apply): None applicable Discharge Plan Admission Admit Date/Time: 09/18/22 00:06 Primary Reason for Your Visit: Small bowel obstruction Attending Provider: Nadege Lima Primary Care Provider: Bianka Arora Consulting Providers: Melvin Jose Instructions Additional Instructions / Restrictions: 1. Please start with soft bland diet initially and progressed to regular diet slowly over the next couple of days 2. There is no required to need to follow-up with general surgery however if you would like to follow-up with them please call the below number to schedule an appointment Discharge Orders/Prescriptions Prescriptions: Continued esomeprazole magnesium 40 MG capsule 40 mg PO DAILY nystatin-triamcinolone 1 APPLIC cream 1 applic topical BID Qty: 1 0RF Referrals / Follow Up: Bianka Arora MD [Primary Care Provider] - Within 1 Month Siri Mazariegos MD [Med Staff - Active Staff] - See Referral Note (Only as needed or if you would like to for hospital follow-up) Bianka Arora MD [[facility]] - Disposition Disposition (needs filled in before D/C Order can be placed): Home, Self Care Charges/Coding Visit Charges Inpatient E&M: 09347 Disch Hosp
[2022-09-19 12:26] VITALS: BP 121/73; PULSE 50; RESP 16; TEMP 36.7; O2SAT 98
== END 2022-09-19 12:50 | disposition home or self-care (01) | DRG 389 ==
LOC: ED 09-18 00:07 → PCU 09-18 00:17
PROVIDERS: Surgery; Admitting Provider Hospitalist; Emergency Provider Emergency Medicine; PCP Internal Medicine; Visit Provider Internal Medicine
DX: K56.600 Partial intestinal obstruction, unspecified as to cause (principal); Z68.41 Body mass index [BMI] 40.0-44.9, adult; D72.829 Elevated white blood cell count, unspecified; E66.01 Morbid (severe) obesity due to excess calories; K57.30 Diverticulosis of large intestine without perforation or abscess without bleeding; F17.220 Nicotine dependence, chewing tobacco, uncomplicated; K29.70 Gastritis, unspecified, without bleeding; G47.33 Obstructive sleep apnea (adult) (pediatric); Z90.49 Acquired absence of other specified parts of digestive tract
CPT/HCPCS: 36415; 74018; 74177; 74250; 80053; 81001; 83690; 85025; 87040; 87506; 99285; J7030; J7120; Q9967; A4216; J2405